=== PATIENT | female | born 1960 | race Two or more races ===

== ENCOUNTER 2024-12-16 13:52 | Inpatient (IN) | payer MEDICAID, SELFPAY ==
[2024-12-16] VITALS (21 sets, daily range): BP systolic 100–131; BP diastolic 57–80; PULSE 77–98; RESP 17–81; TEMP 36.8–37.1; O2SAT 95–100; BMI 24.4
--- NOTE | 2024-12-16 14:25 | XR_ITS ---
Examination: PA lateral chest 2 views TECHNIQUE: Upright PA lateral chest 2 views Date and time: December 16, 2024 1434 hours INDICATIONS: Weakness today. FINDINGS: Normal heart size Retrocardiac gastric hernia. No pneumonia or pulmonary edema. Minimal chronic osteoporotic wedging lower dorsal vertebral bodies IMPRESSION: No active disease.
--- NOTE | 2024-12-16 14:25 | EKG_ITS ---
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
--- NOTE | 2024-12-16 14:27 | PD.EDRME ---
Rapid Medical Screening Exam RME Arrival date/time: 12/16/24 13:52 64-year-old female presents to the emergency department today for complaints of feeling weak and was told that her hemoglobin was low when she was in the clinic today Chief Complaint: Recheck/Abnormal Lab/Rx Vital signs: Vital Signs Temperature 98.7 F 12/16/24 14:17 Pulse Rate 98 12/16/24 14:17 Respiratory Rate 18 12/16/24 14:17 Blood Pressure 100/62 12/16/24 14:17 Pulse Oximetry (%) 97 12/16/24 14:17 Oxygen Delivery Method Room Air 12/16/24 14:17
[2024-12-16 15:22] LABS: Basophils # (Auto) 0.0 Thou/mm3 (0.0-0.2); Basophils % (Auto) 1 % (0-2.5); Eosinophils # (Auto) 0.1 Thou/mm3 (0.0-0.5); Eosinophils % (Auto) 3 % (0-10); Hematocrit 23.7 % (36.0-46.0); Immature Granulocytes Auto 0.01 Thou/mm3 (0.00-0.00); Lymphocytes # (Auto) 1.5 Thou/mm3 (1.0-4.8); Lymphocytes % (Auto) 28 % (10-50); Mean Corpuscular HGB Conc 27.4 g/dl (31.0-37.0); Mean Corpuscular Hemoglobin 20.1 pg (25.0-35.0); Mean Corpuscular Volume 73 fL (80-100); Monocytes # (Auto) 0.4 Thou/mm3 (0.0-0.8); Monocytes % (Auto) 8 % (0-12); Neutrophils # (Auto) 3.2 Thou/mm3 (1.8-7.7); Neutrophils % (Auto) 60 % (37-80); Nucleated Red Blood Cell # 0.00 Thou/mm3 (0.00-0.00); Nucleated Red Blood Cell % 0 /100 WBC (0); Platelet Count 451 Thou/mm3 (140-440); RDW Standard Deviation 46.5 fL (36.4-46.3); Red Blood Count 3.24 Miln/mm3 (4.00-5.20); White Blood Count 5.3 Thou/mm3 (3.6-11.0)
[2024-12-16 15:32] LABS: Hemoglobin 6.5 g/dL (12.0-16.0)
[2024-12-16 15:38] LABS: Alanine Aminotransferase 15 U/L (10-49); Albumin, Serum 4.1 gm/dL (3.4-4.8); Albumin/Globulin Ratio 2.2 (1.2-2.2); Alkaline Phosphatase 63 U/L (46-116); Anion Gap 9 (7-16); Aspartate Amino Transferase 16 U/L (0-34); BUN/Creatinine Ratio 30 Ratio (12-20); Bilirubin,Total 0.3 mg/dL (0.3-1.2); Blood Urea Nitrogen 18 mg/dL (9-23); Calcium 9.6 mg/dL (8.3-10.6); Calcium (Corrected) 9.6 mg/dL (8.5-10.1); Carbon Dioxide 26.8 mMol/L (20.0-31.0); Chloride 109 mMol/L (98-107); Creatinine (Component) 0.6 mg/dL (0.6-1.3); Estimated Creatinine Clearance 81.2 mL/min (>60); Globulin 1.9 gm/dL (2.3-3.5); Glucose 129 mg/dL (74-106); Magnesium 1.9 mg/dL (1.6-2.6); Osmolality,Calculated 292 (275-295); Potassium 3.6 mMol/L (3.4-5.1); Sodium 145 mMol/L (136-145); Total Protein 6.0 gm/dL (5.7-8.2); Troponin I < 0.002 ng/mL (0.0-0.045); eGFR > 60 See Note
[2024-12-16 15:49] LABS: INR 1.0 (0.9-1.3); Partial Thromboplastin Time 31.9 Seconds (22.0-36.0); Prothrombin Time 10.9 Seconds (9.0-12.2)
[2024-12-16 15:52] LABS: Ferritin 4 ng/mL (7.3-270.7); Iron 12 mcg/dL (50-170); Percent Iron Saturation 2 % (20-55); Total Iron Binding Capacity 431 mcg/dL (250-425); Unsaturated Iron Binding 419 (225-295)
[2024-12-16 16:04] LABS: B-Type Natriuretic Peptide 80 pg/mL (0-100)
[2024-12-16 16:17] LABS: Collection Type, Urine Clean Catch
[2024-12-16 16:50] LABS: Bilirubin,Urine Negative (Negative); Blood,Urine Negative (Negative); Clarity,Urine Clear (Clear/Hazy); Color,Urine Yellow (Lt Yel-Yel); Glucose, Urine Trace (Negative); Ketones,Urine Trace (Negative); Leukocyte Esterase,Urine Positive (Negative); Nitrite,Urine Negative (Negative); PH,Urine 6.0 (5.0-7.0); Protein,Urine 1+ (Neg - Trace); RBC,Urine 1 /hpf (0-3); Specific Gravity,Urine 1.034 (1.001-1.035); Squamous Epithelial Cell,Urine < 1 /hpf (0-5); Urobilinogen,Urine 2.0 mg/dL (0.0-1.0); WBC,Urine 6 /hpf (0-5)
--- NOTE | 2024-12-16 18:13 | PD.EDRECHK ---
ED Recheck Abnl Lab Rx-RME/HPI General Chief Complaint: Recheck/Abnormal Lab/Rx Stated Complaint: Hemoglobin 5.9, weak, SOB Time Seen by Provider: 12/16/24 17:54 Arrival date/time: 12/16/24 13:52 Limitations: no limitations RME / HPI RME / HPI narrative: 64-year-old female is here today with 2-week history of progressive dyspnea. She has generalized weakness. She does endorse some mild cramping. She has no chest pain or lower leg edema. She has no orthopnea. She has no fevers or chills. She has no cough or wheezing. She does have a history of asthma and hypertension. 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 She denies any GI bleed. She has no other acute complaints. Related Data Home Medications ?Medication ?Instructions ?Recorded ?Confirmed loratadine 10 mg tablet 10 mg PO QDAY 10/10/18 12/17/24 montelukast 10 mg tablet 10 mg PO QPM 10/10/18 12/17/24 lisinopril 5 mg tablet 5 mg PO QDAY 04/11/21 12/17/24 atorvastatin 20 mg tablet 20 mg PO DAILY 12/17/24 12/17/24 ipratropium bromide 42 mcg (0.06 2 spray intranasal TID 12/17/24 12/17/24 %) nasal spray Allergies Allergy/AdvReac Type Severity Reaction Status Date / Time No Known Allergies Allergy Verified 12/16/24 13:58 Review of Systems Review of Systems Systems Reviewed: All systems reviewed, normal except as documented ED Exam General Limitations: Present no limitations General appearance: Present alert and in no apparent distress Head Head exam: Present atraumatic Eye Eye exam: Present normal appearance, PERRL and EOMI ENT ENT exam: Present normal exam, normal oropharynx and mucous membranes moist Neck Neck exam: Present normal inspection, full ROM and trachea midline Chest Chest inspection: Present normal inspection and symmetric chest wall rise Respiratory Respiratory exam: Present normal lung sounds bilaterally Cardiovascular Cardiovascular exam: Present regular rate, normal rhythm and normal heart sounds Abdominal Exam Abdominal exam: Present soft; Absent tenderness Rectal Exam Rectal exam: Present normal inspection, normal rectal tone and heme (+) stool (CROW Mccrary, present during rectal exam) Extremities Exam Extremities exam: Present normal inspection and full ROM Back Exam Back exam: Present normal inspection and full ROM Neurological Exam Neurological exam: Present alert, oriented X3 and CN II-XII intact Psychiatric Psychiatric exam: Present normal affect and normal mood Skin Skin exam: Present warm, dry, intact and normal color Course Quality Measures none Orders Category Date Time Status Admit to Inpatient Status Routine Admission 12/16/24 23:43 Active Patient Condition Routine Admission 12/16/24 23:[address] Screening NOW Care 12/16/24 18:23 Active EKG (ED ONLY) *Do not use* NOW Care 12/16/24 14:25 Completed Endoscopy Consents .On arrival Care 12/16/24 20:52 Active May take PO meds w/sips of H2O NEEDED Care 12/16/24 23:42 Active Miscellaneous Nursing Order NOW Care 12/16/24 20:52 Active Miscellaneous Nursing Order NOW Care 12/16/24 23:43 Active NPO NOW Care 12/16/24 23:44 Active NPO after Midnight ONCE Care 12/16/24 18:30 Active NPO after Midnight ONCE Care 12/16/24 20:52 Active Notify provider NEEDED Care 12/16/24 23:43 Active Occult Blood,Stool (Nursing) ONCE Care 12/16/24 19:10 Completed Sequential Compression Device QSHIFT Care 12/16/24 23:42 Active Consult to Gastroenterology Stat Cons 12/16/24 18:30 Ordered Diet NPO (NOW) Diet 12/16/24 23:44 Active Diet NPO after Midnight Diet 12/17/24 00:01 Completed Diet NPO after Midnight Diet 12/17/24 00:[address] abdomen pelvis w con Stat Exams 12/16/24 18:23 Completed EKG (ED Only) Stat Exams 12/16/24 14:25 Draft XR chest 2V Stat Exams 12/16/24 14:25 Completed B-Type Natriuretic Peptide Stat Lab 12/16/24 14:58 Completed BNP [B-Type Natriuretic Peptide] Stat Lab 12/16/24 18:30 Completed Basic Metabolic Panel AM DRAW Lab 12/17/24 04:20 Completed Basic Metabolic Panel AM DRAW Lab 12/18/24 05:00 Ordered Basic Metabolic Panel AM DRAW Lab 12/19/24 05:00 Ordered CBC AM DRAW Lab 12/17/24 04:20 Completed CBC AM DRAW Lab 12/18/24 05:00 Ordered CBC AM DRAW Lab 12/19/24 05:00 Ordered CBC Stat Lab 12/16/24 14:58 Completed Comprehensive Metabolic Panel Stat Lab 12/16/24 14:58 Completed Ferritin Stat Lab 12/16/24 14:58 Completed Iron Panel Stat Lab 12/16/24 14:58 Completed Magnesium AM DRAW Lab 12/17/24 04:20 Completed Magnesium AM DRAW Lab 12/18/24 05:00 Ordered Magnesium AM DRAW Lab 12/19/24 05:00 Ordered Magnesium Stat Lab 12/16/24 14:58 Completed Partial Thromboplastin Time AM DRAW Lab 12/17/24 04:20 Completed Partial Thromboplastin Time Stat Lab 12/16/24 14:58 Completed Phosphorous AM DRAW Lab 12/17/24 04:20 Completed Phosphorous AM DRAW Lab 12/18/24 05:00 Ordered Phosphorous AM DRAW Lab 12/19/24 05:00 Ordered Prothrombin Time with INR AM DRAW Lab 12/17/24 04:20 Completed Prothrombin Time with INR Stat Lab 12/16/24 14:58 Completed Troponin I Stat Lab 12/16/24 14:58 Completed Type and Screen Stat Lab 12/16/24 14:58 Completed Urinalysis Stat Lab 12/16/24 16:05 Completed prbc [Red Blood Cells] Stat Lab 12/16/24 14:58 Completed Acetaminophen Supp [Tylenol Supp] Med 12/16/24 23:42 Active 650 mg [place] Q6HR PRN Albuterol/Ipratr Rt Sirisha [Duoneb Rt Sirisha] Med 12/16/24 23:42 Active 3 ml INH Q2HR PRN Famotidine Inj [Pepcid Inj] Med 12/16/24 23:00 Discontinued 20 mg IVP X1 ONE HYDROcodone*/APAP 5/325 [[place] 5/325] Med 12/16/24 23:42 Active 1 tab PO Q4HR PRN Ondansetron Inj [Zofran Inj] Med 12/16/24 23:42 Active 4 mg IVP Q6H PRN Ondansetron Inj [Zofran Inj] Med 12/16/24 23:00 Discontinued 4 mg IVP X1 ONE Pantoprazole Inj [Protonix Inj] Med 12/17/24 09:00 Active 40 mg IVP QDAY Pantoprazole Inj [Protonix Inj] Med 12/16/24 23:00 Discontinued 80 mg IVP X1 ONE Code Status Routine Oth 12/16/24 23:42 Ordered Vital Signs Vital signs: Vital Signs Temperature 98.7 F 12/16/24 14:17 Pulse Rate 98 12/16/24 14:17 Respiratory Rate 18 12/16/24 14:17 Blood Pressure 100/62 12/16/24 14:17 Pulse Oximetry (%) 97 12/16/24 14:17 Oxygen Delivery Method Room Air 12/16/24 14:17 Recheck / Abnormal Lab / Rx MDM Narrative MDM Narrative:: 64-year-old female is here today with 2-week history of progressive dyspnea. She has generalized weakness. She does endorse some mild cramping. She has no chest pain or lower leg edema. She has no orthopnea. She has no fevers or chills. She has no cough or wheezing. She does have a history of asthma and hypertension. 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 She denies any GI bleed. She has no other acute complaints. On exam, patient is nontoxic-appearing. Abdomen is soft and supple. Vital signs are stable. Bedside Hemoccult was positive. Her hemoglobin is 6.5 and her hematocrit is 23 point see abdomen. She has no leukocytosis. PT/INR unremarkable. Metabolic panel is unremarked with exception of a glucose that is mildly elevated at 129. Iron studies are consistent with iron of deficient anemia. Urinalysis is unremarkable. Will give the patient [address] is added to the workup. Dr. Meyer with gastroenterology was contacted at approximately 1820 p.m. and agrees the patient should be admitted. He will see the patient tomorrow and consider colonoscopy. At the time of shift change, patient CT abdomen pelvis is pending. The plan will be to admit to medicine if CT of the abdomen is unremarkable. Case discussed with Dr. Barakat, table games shift manager ER physician who assumed care. Patient data External records reviewed:: None Clinical information provided by:: patient Social determinants that could affect healthcare access:: none Patient has the following chronic illnesses:: HTN How is presenting disease/condition affected by chronic disease/condition?: uneffected by Evaluation data The following diagnostics were reviewed and interpreted by me:: lab results (Patient has no leukocytosis, hemoglobin 6.5, hematocrit is 23.7. There is no significant metabolic derangement. Urinalysis unremarkable.) and radiology exam(s) (CT of abdomen pelvis is pending at the time of shift change.) Lab and/or radiology exams considered but not ordered:: n/a Interpretation Summary: Significant anemia Medications / Prescriptions Medications or Prescriptions considered but not ordered:: n/a Medication administrations:: Medication Administration History Acetaminophen (Acetaminophen Supp 650 Mg Supp) 650 mg [place] Q6HR PRN PRN Reason: Fever > 100.4 or pain 1-3 Stop: 01/15/25 23:41 Hydrocodone Bitart/Acetaminophen (Hydrocodone/Apap 5/325 Tablet) 1 tab PO Q4HR PRN PRN Reason: PAIN SCALE 4-10(Mod-Sev Stop: 12/21/24 23:41 Albuterol/Ipratropium (Albuterol/Ipratropium (Duoneb) Rt Sirisha 3 Ml Nebu) 3 ml INH Q2HR PRN PRN Reason: SHORTNESS OF BREATH OR WHEEZE Stop: 01/15/25 23:41 Atorvastatin Calcium (Atorvastatin Calcium 20 Mg Tablet) 20 mg PO HS DAYNE Stop: 01/17/25 20:59 Sodium Chloride (Ns) 500 mls @ 80 mls/hr IV .Q6H15M ONE Stop: 12/17/24 14:23 Last Admin: 12/17/24 08:54 Dose: 80 mls/hr Documented By: Montelukast Sodium (Montelukast Sodium 10 Mg Tablet) 10 mg PO QPM DAYNE Stop: 01/16/25 20:59 Ondansetron HCl (Ondansetron Inj 2 Mg/Ml Inj 2 Ml) 4 mg IVP Q6H PRN; Protocol PRN Reason: NAUSEA OR VOMITING Stop: 01/15/25 23:41 Pantoprazole Sodium (Pantoprazole Inj 40 Mg Vial) 40 mg IVP QDAY DAYNE Stop: 01/16/25 08:59 Last Admin: 12/17/24 08:38 Dose: 40 mg Documented By: Discontinued Medications Famotidine (Famotidine Inj 10 Mg/Ml Vial 2 Ml) 20 mg IVP X1 ONE Stop: 12/16/24 23:01 Last Admin: 12/16/24 23:15 Dose: 20 mg Documented By: IRWIN Ondansetron HCl (Ondansetron Inj 2 Mg/Ml Inj 2 Ml) 4 mg IVP X1 ONE; Protocol Stop: 12/16/24 23:01 Last Admin: 12/16/24 23:16 Dose: 4 mg Documented By: IRWIN Pantoprazole Sodium (Pantoprazole Inj 40 Mg Vial) 80 mg IVP X1 ONE Stop: 12/16/24 23:01 Last Admin: 12/16/24 23:16 Dose: 80 mg Documented By: IRWIN PRBCs Consultations Consultation(s) initiated? (list below): Yes Diagnosis Recheck Differential Diagnosis: other (Anemia) Most likely diagnosis given after review of the tests above:: Anemia, GI bleed Admission Indicated Admission indicated?: indicated Admission Request Was there a request for admission?: Yes Admission Attestation Admission request attestation: Discussed case with [] from Hospitalist service regarding admission. Discussed patients ED course, exam findings, labs, and radiology results. The Hospitalist [agrees,declines] to accept the patient for admission. Disposition Plan Disposition Plan: Admit Critical Care Time Critical Care Time Critical Care Time: Yes Total Critical Care Time (min.): 45 Attestation: The high probability of sudden, clinically significant deterioration in the patient's condition required the highest level of my preparedness to intervene urgently. The services I provided to this patient were to treat and/or prevent clinically significant deterioration. Services included the following: chart data review, reviewing nursing notes and/or old charts, documentation time, portfolio consultant collaboration regarding findings and treatment options, medication orders and management, direct patient care, vital sign assessments and ordering, interpreting and reviewing diagnostic studies and lab tests. Aggregate critical care time includes only time during which I was engaged in work directly related to the patient's care, as described above, whether at bedside or elsewhere in the Emergency Department. It did not include time spent performing other reported procedures or the services of residents, students, nurses or physician assistants. Discharge Plan Plan Patient Disposition: Admit Acute Care w/in Hospital Patient condition on transfer: Stable Problem List Clinical Impression: GI (gastrointestinal bleed), Anemia
--- NOTE | 2024-12-16 18:23 | XR_ITS ---
Examination: CT abdomen with intravenous contrast CT pelvis with intravenous contrast 2-D coronal reconstructions 2-D sagittal reconstructions Date and time of exam:December 16, 2024 1027 hours Comparison July 04, 2023 INDICATIONS: Anemia with gastrointestinal bleeding beginning 3 weeks ago. CTDI: vol (mGy) 16 DLP: (mGycm) 306 Technique: Multiple axial sections of the abdomen and pelvis have been obtained. 64 slice high-resolution scanner used. 3 mm axial sections have been obtained, post intravenous injection cc [id number] 2-D sagittal, coronal reconstructions obtained. Low dose protocols were performed. One or more of the following dose reduction techniques were used; automated exposure control, adjustment of the mA and/or KV according to patient size, use of iterative reconstruction technique. Findings: Small liver cyst Spleen not enlarged No gallstones No pancreatic or adrenal mass No hydronephrosis Aorta normal size Normal appendix Colonic diverticulosis Anteverted uterus with multiple uterine fundal masses Urinary bladder are intact Prominent thickening of the rectal wall Prominent osteopenia IMPRESSION: Colonic diverticulosis, no diverticulitis. Prominent thickening of the rectal wall, differential would include proctitis, rectal tumor Recommend direct inspection Recommend pelvic sonography to assess multiple uterine masses
[2024-12-16 18:58] LABS: B-Type Natriuretic Peptide 72 pg/mL (0-100)
--- NOTE | 2024-12-16 20:48 | PD.IMCONS ---
HPI Data of Consult Primary Care Provider: Jarrod Mixon PA-C Consult Narrative Reason for consult: Occult GI bleeding posthemorrhagic anemia hemoglobin 6.5 hematocrit 23.7 History of present illness: 64-year-old female evaluated the request of the ER physician pastry assistant with symptoms of dizziness weakness dyspnea on exertion Patient does have underlying hypertension and bronchial asthma Her hemoglobin hematocrit was 6.5 and 23.7 platelet count 4 and 51,000 The previous documented hemoglobin hematocrit is 11.6 and 36.9 cc:: cc: Review of Systems Review of Systems Systems Reviewed: All systems reviewed, normal except as documented Past Medical History Surgical History OTHER SURGICAL HX: As in the history of present illness Meds Home Medications and Allergies Home Medications ?Medication ?Instructions ?Recorded ?Confirmed ?Type loratadine 10 mg tablet 10 mg PO QDAY 10/10/18 04/11/21 History montelukast 10 mg tablet 10 mg PO QPM 10/10/18 04/11/21 History lisinopril 5 mg tablet 5 mg PO QDAY 04/11/21 04/11/21 History Allergies Allergy/AdvReac Type Severity Reaction Status Date / Time No Known Allergies Allergy Verified 12/16/24 13:58 Exam Vital Signs Temp Pulse Resp BP Pulse Ox O2 Del Method 98.2 F 85 18 121/72 100 Room Air 12/16/24 20:25 12/16/24 20:25 12/16/24 20:25 12/16/24 20:21 12/16/24 20:25 12/16/24 20:21 Constitutional Comments: Chronically ill-appearing Routine Respiratory Exam Comments: Normal to auscultation Routine Abdominal Exam Comments: Soft nontender Results Labs 12/16/24 14:58 12/16/24 14:58 Labs: Short CBC 12/16/24 Range/Units 14:58 WBC 5.3 (3.6-11.0) Thou/mm3 Hgb 6.5 L* (12.0-16.0) g/dL Hct 23.7 L (36.0-46.0) % Plt Count 451 H (140-440) Thou/mm3 BMP 12/16/24 14:58 Sodium 145 Potassium 3.6 Chloride 109 H Carbon Dioxide 26.8 BUN 18 Creatinine 0.6 Glucose 129 H Calcium 9.6 Cardiac Enzymes 12/16/24 Range/Units 14:58 Troponin I < 0.002 (0.0-0.045) ng/mL Liver Function 12/16/24 Range/Units 14:58 Total Bilirubin 0.3 (0.3-1.2) mg/dL AST 16 (0-34) U/L ALT 15 (10-49) U/L Alkaline Phosphatase 63 (46-116) U/L Albumin 4.1 (3.4-4.8) gm/dL Urine 12/16/24 Range/Units 16:05 Urine Color Yellow (Lt Yel-Yel) Urine Clarity Clear (Clear/Hazy) Urine pH 6.0 (5.0-7.0) Ur Specific [place] 1.034 (1.001-1.035) Urine Protein 1+ A (Neg - Trace) Urine Glucose (UA) Trace (Negative) Assessment and Plan Additional Assessment & Plan Additional Plan: # Occult GI bleeding grossly Hemoccult positive stool # Acute posthemorrhagic anemia plan I agree with the blood transfusion consent obtained for fiberoptic esophagogastroduodenoscopy with possible biopsy possible therapeutic intervention under intravenous moderate sedation n.p.o. at midnight tonight patient can have clear liquid diet till midnight tonight IV Protonix will follow the patient If the EGD is absolutely normal we will consider doing a fiberoptic colonoscopy prior to discharge Agree with the blood transfusion Thank you very much for the opportunity to participate in the care of this patient Other medical problems include Essential hypertension Bronchial asthma
--- NOTE | 2024-12-16 20:55 | PC.NURSE ---
first unit of blood in porogress. pt resting quietly . continue to monitor.
--- NOTE | 2024-12-16 23:01 | PD.EDADDENDU ---
Emergency Room Addendum <Raquel Mo - Last Filed: 12/16/24 23:24> Addendum Narrative: I took over the care from previous shift physician, Lisa Dougherty PA-C, at 11 PM on 12/16/24. See previous notes for complete H & P and ED course. I reviewed all diagnostic test results. Diagnoses include: I discussed the case with our hospitalist. About the presentation and exam and diagnostics and treatments here. And need of further care in the hospital. Will accept the patient. Lit Barakat MD <Lit Barakat MD - Last Filed: 12/17/24 00:23> Addendum Narrative: I took over the care from Lisa Dougherty PA-C at 11 PM on 12/16/24. See previous notes for complete H & P and ED course. I reviewed all diagnostic test results. Diagnoses include: GI bleed with severe anemia I discussed the case with our welding production supervisor and our hospitalist. About the presentation and exam and diagnostics and treatments here. And need of further care in the hospital. Will accept the patient. Lit Barakat MD
[2024-12-16] MEDS: FAMOTIDINE INJ 10 MG/ML VIAL 2 ML 20 MG IVP (23:15)
[2024-12-16] MEDS: ONDANSETRON INJ 2 MG/ML INJ 2 ML 4 MG IVP (23:16)
--- NOTE | 2024-12-16 23:45 | PD.RESHP ---
Documentation for date of: 12/16/24 HPI History of Present Illness Chief complaint: Weakness, dyspnea on exertion History of present illness: 64 y/o F with PMHx significant for asthma, hypertension, arthritis, diverticulitis presents with chief complaint of weakness and dyspnea on exertion x 2 weeks. Patient states symptoms have been going progressively worse, significantly reducing her daily activities. Patient denies ever having felt similar symptoms in the past. Patient also reports 1 episode of melena approximately 10 days ago. Patient denies fevers, chills, chest pain, shortness of breath, nausea, vomiting, decreased appetite, abdominal pain, dysuria, hematemesis. ED COURSE: Labs significant for: Hemoglobin 6.5, BUN 18, creatinine 0.6, EGFR 60. Stool guaiac positive. Imaging significant for: Chest x-ray negative. EKG unremarkable. CT A/P showed diverticulosis without inflammation, proctitis. Patient received Protonix and Zofran in the ED, along with 2 units PRBCs. PMH: Asthma, HTN, arthritis, diverticulitis PSH: None SH: Denies alcohol, tobacco, illicit drug use. Allergies:?NKDA Medications: Aspirin, atorvastatin, lisinopril, montelukast, omeprazole Review of Systems Review of Systems Systems Reviewed: All systems reviewed, normal except as documented Past Medical History Past Medical History Comments PMH COMMENT: PMH: Asthma, HTN, arthritis, diverticulitis PSH: None SH: Denies alcohol, tobacco, illicit drug use. Allergies:?NKDA Medications: Aspirin, atorvastatin, lisinopril, montelukast, omeprazole Exam Vital Signs Temp Pulse Resp BP Pulse Ox O2 Del Method 98.4 F 77 18 110/57 L 98 Room Air 12/16/24 23:21 12/16/24 23:21 12/16/24 23:21 12/16/24 23:21 12/16/24 23:21 12/16/24 22:15 Narrative Exam PE: Gen: Well-developed and well-nourished. HEENT: NCAT, PERRLA, EOMI, MMM, anicteric conjunctivae. CVS: normal S1 and S2. RRR. No M/R/G. Resp: CTA B/L. No rhonchi, rales, crackles or wheezing. Abd: soft, non-tender, non-distended. MSK: Good ROM in BUE & BLE. No edema or rash. Neuro: CN II-XII grossly intact. Strength 5/5 in BUE & BLE. Alert and oriented x3. Psych: appropriate mood and affect. Results: Labs 12/16/24 14:58 12/16/24 14:58 Labs: Short CBC 12/16/24 Range/Units 14:58 WBC 5.3 (3.6-11.0) Thou/mm3 Hgb 6.5 L* (12.0-16.0) g/dL Hct 23.7 L (36.0-46.0) % Plt Count 451 H (140-440) Thou/mm3 BMP 12/16/24 14:58 Sodium 145 Potassium 3.6 Chloride 109 H Carbon Dioxide 26.8 BUN 18 Creatinine 0.6 Glucose 129 H Calcium 9.6 Cardiac Enzymes 12/16/24 Range/Units 14:58 Troponin I < 0.002 (0.0-0.045) ng/mL Liver Function 12/16/24 Range/Units 14:58 Total Bilirubin 0.3 (0.3-1.2) mg/dL AST 16 (0-34) U/L ALT 15 (10-49) U/L Alkaline Phosphatase 63 (46-116) U/L Albumin 4.1 (3.4-4.8) gm/dL Urine 12/16/24 Range/Units 16:05 Urine Color Yellow (Lt Yel-Yel) Urine Clarity Clear (Clear/Hazy) Urine pH 6.0 (5.0-7.0) Ur Specific [place] 1.034 (1.001-1.035) Urine Protein 1+ A (Neg - Trace) Urine Glucose (UA) Trace (Negative) Quality Measures Quality Measures VTE prophylaxis Medications Home Medications and Allergies Home Medications ?Medication ?Instructions ?Recorded ?Confirmed ?Type loratadine 10 mg tablet 10 mg PO QDAY 10/10/18 04/11/21 History montelukast 10 mg tablet 10 mg PO QPM 10/10/18 04/11/21 History lisinopril 5 mg tablet 5 mg PO QDAY 04/11/21 04/11/21 History Allergies Allergy/AdvReac Type Severity Reaction Status Date / Time No Known Allergies Allergy Verified 12/16/24 13:58 Visit Medications Discontinued Medications Famotidine (Famotidine Inj 10 Mg/Ml Vial 2 Ml) 20 mg IVP X1 ONE Stop: 12/16/24 23:01 Last Admin: 12/16/24 23:15 Dose: 20 mg Ondansetron HCl (Ondansetron Inj 2 Mg/Ml Inj 2 Ml) 4 mg IVP X1 ONE; Protocol Stop: 12/16/24 23:01 Last Admin: 12/16/24 23:16 Dose: 4 mg Pantoprazole Sodium (Pantoprazole Inj 40 Mg Vial) 80 mg IVP X1 ONE Stop: 12/16/24 23:01 Last Admin: 12/16/24 23:16 Dose: 80 mg Assessment & Plan Plan 64 y/o F with PMHx significant for asthma, hypertension, arthritis, diverticulitis presents with chief complaint of weakness and dyspnea on exertion x 2 weeks, admitted for GI bleed with acute symptomatic anemia. #GI bleed #Acute symptomatic anemia Patient presented with chief complaints of dyspnea on exertion and weakness, progressive over the past 2 weeks. Patient also notes 1 episode of melena approximately 10 days ago. At presentation hemoglobin 6.5, 2 units transfused in the ED. Stool occult blood test positive. CT A/P showed diverticulosis without inflammation. Patient denies any hematemesis. Not on any anticoagulants. - GI consulted, appreciate recommendations - N.p.o. pending EGD - IV Protonix - Follow-up posttransfusion H&H - Monitor hemoglobin, transfuse as needed - Protonix IV 40 mg daily #HTN #Arthritis #Asthma Patient history as stated. Med rec's pending. - DuoNebs as needed - Consider resume patient home med when appropriate DVT prophylaxis: SCDs GI prophylaxis: Protonix Diet: N.p.o. pending EGD Lines: Peripheral IV Code status: Full code Plan of care discussed with attending Dr. Mcmanus. Maynor Fernandez MD PGY?2 Attending Provider Attestation/Addendum I have examined the patient, reviewed labs and imaging findings, discussed the case with the resident(s), and reviewed entered orders. I agree with the plan of care as outlined in this note, with these additional summaries/recommendations: After examination of the patient and review of the clinical data, I feel that this patient needs admission to the hospital for further treatment and evaluation. Patient is a 64-year-old female with a medical history of asthma, primary hypertension, and diverticulosis presents to [facility] emergency department on 12/16/2024 with nonspecific complaints of shortness of breath, generalized weakness, and cramping. Patient seen at bedside. Patient diagnosed with GI bleed. Unclear if upper or lower at this time. Fecal occult blood test positive in the emergency room. Currently hemodynamically stable. Differential is broad at this time and includes PUD, gastritis, AVM, malignancy, diverticulosis, and hemorrhoids. GI consulted with plans for endoscopic evaluation. N.p.o., 2 large-bore IVs, IVF resuscitation to maintain MAP greater than or equal to 65, trend H&H, type and screen, pantoprazole 80 mg IV x 1 then 40 mg IV twice daily. No history of cirrhosis and thus octreotide and Rocephin not required at this time. Hold NSAIDs, steroids, aspirin, and all anticoagulation. Transfuse for hemoglobin less than 7, platelets less than 50, or INR greater than 1.5. Patient's hemoglobin was found to be 6.5 in the emergency room and 1 unit PRBCs ordered. Iron studies also obtained prior to transfusion which revealed severe iron deficiency anemia with iron 12 and ferritin 4. Severe iron deficiency anemia is suspicious for colon cancer. CT of abdomen and pelvis on admission did reveal rectal wall thickening which possibly represents proctitis versus tumor and multiple uterine masses. Patient did have transvaginal ultrasound on 06/12/2023 which showed that multiple uterine masses are consistent with fibroid degeneration. Thrombocytosis present which is most likely reactive secondary to severe TOYIN. Continue home inhalers as needed for history of asthma. Resume home antihypertensives as needed. Patient updated on the plan and in agreement. All questions answered to satisfaction. Please see residents note for additional details and management. Dr. Yonathan MD
[2024-12-17] VITALS (18 sets, daily range): BP systolic 97–134; BP diastolic 59–86; PULSE 64–83; RESP 18–20; TEMP 36.3–36.8; O2SAT 95–100
--- NOTE | 2024-12-17 04:17 | PC.NURSE ---
report called to RN.
[2024-12-17 04:58] LABS: Basophils # (Auto) 0.0 Thou/mm3 (0.0-0.2); Basophils % (Auto) 1 % (0-2.5); Eosinophils # (Auto) 0.2 Thou/mm3 (0.0-0.5); Eosinophils % (Auto) 4 % (0-10); Hematocrit 31.0 % (36.0-46.0); Hemoglobin 9.1 g/dL (12.0-16.0); Immature Granulocytes Auto 0.01 Thou/mm3 (0.00-0.00); Lymphocytes # (Auto) 1.6 Thou/mm3 (1.0-4.8); Lymphocytes % (Auto) 32 % (10-50); Mean Corpuscular HGB Conc 29.4 g/dl (31.0-37.0); Mean Corpuscular Hemoglobin 22.8 pg (25.0-35.0); Mean Corpuscular Volume 78 fL (80-100); Monocytes # (Auto) 0.4 Thou/mm3 (0.0-0.8); Monocytes % (Auto) 8 % (0-12); Neutrophils # (Auto) 2.7 Thou/mm3 (1.8-7.7); Neutrophils % (Auto) 55 % (37-80); Nucleated Red Blood Cell # 0.00 Thou/mm3 (0.00-0.00); Nucleated Red Blood Cell % 0 /100 WBC (0); Platelet Count 385 Thou/mm3 (140-440); RDW Standard Deviation 51.8 fL (36.4-46.3); Red Blood Count 4.00 Miln/mm3 (4.00-5.20); White Blood Count 5.0 Thou/mm3 (3.6-11.0)
[2024-12-17 05:15] LABS: INR 1.0 (0.9-1.3); Partial Thromboplastin Time 32.2 Seconds (22.0-36.0); Prothrombin Time 10.9 Seconds (9.0-12.2)
[2024-12-17 05:19] LABS: Anion Gap 8 (7-16); BUN/Creatinine Ratio 23 Ratio (12-20); Blood Urea Nitrogen 14 mg/dL (9-23); Calcium 9.1 mg/dL (8.3-10.6); Carbon Dioxide 26.1 mMol/L (20.0-31.0); Chloride 110 mMol/L (98-107); Creatinine (Component) 0.6 mg/dL (0.6-1.3); Estimated Creatinine Clearance 81.2 mL/min (>60); Glucose 82 mg/dL (74-106); Magnesium 2.1 mg/dL (1.6-2.6); Osmolality,Calculated 286 (275-295); Phosphorous 3.8 mg/dL (2.4-5.1); Potassium 4.2 mMol/L (3.4-5.1); Sodium 144 mMol/L (136-145); eGFR > 60 See Note
--- NOTE | 2024-12-17 08:16 | ESPR_ITS ---
<Statement entered by Sumaya Varela MD - 12/17/24 17:50> Ms. Blue is a 64-year-old female with past medical history significant for asthma, hypertension, hyperlipidemia, arthritis, diverticulitis who presented to the ED with GI bleed and acute blood loss anemia and admitted for further workup. Patient is pending EGD tomorrow morning. Will continue with IV fluids and IV Protonix. Can consider IV iron if patient's symptoms continue to worsen. Patient is currently on room air O2. Will continue to monitor patient's daily CBC, and transfuse if hemoglobin drops to below 7. Patient seen and examined at bedside. No acute overnight events reported. I discussed with and supervised the paralegal internship physician who took care of this patient. I personally saw and examined the patient and discussed the assessment and plan with the entire medicine team, including my attending Dr. Castañeda, I agree with most of the assessment and plan as documented below Sumaya Varela M.D. PGY-3 Disclaimer: Despite multiple revisions, due to the dictation software being used, the document bellow may not be free of grammatical errors including phonetic/typographic errors. However, this does not deter from our commitment to providing health care in the patient's best interest in mind. Documentation for date of: 12/17/24 Subjective Subjective Interval history: 12/17/24: KENDELLON. BP was noted to be 98/59. IVF was given. Patient states that she has been feeling short of breath even at rest for the past 2-3 weeks and thought it was due to her asthma. She states that her shortness of breath did not improve even with her current asthma medication regimen. Patient denies any shortness of breath at this time. Patient denies any unintended weight loss, nausea, vomiting, dysuria, hematochezia or hematuria. She reports 1 episode of melena about a week ago. Exam Vital Signs Temp Pulse Resp BP Pulse Ox O2 Del Method 97.3 F 69 18 98/59 L 96 Room Air 12/17/24 07:54 12/17/24 07:54 12/17/24 07:54 12/17/24 07:54 12/17/24 07:54 12/17/24 07:54 Narrative Exam Gen: Well-developed and well-nourished. Pale appearing. HEENT: NCAT, PERRLA, EOMI, MMM, anicteric conjunctivae. CVS: normal S1 and S2. RRR. No M/R/G. Resp: CTA B/L. No rhonchi, rales, crackles or wheezing. Abd: soft, non-tender, non-distended. MSK: Good ROM in BUE & BLE. No edema or rash. Neuro: CN II-XII grossly intact. Strength 5/5 in BUE & BLE. Alert and oriented x3. Psych: appropriate mood and affect. Objective Labs 12/18/24 04:41 12/18/24 04:41 Labs: Laboratory Results - last 24 hr 12/16/24 12/16/24 12/16/24 14:58 16:05 18:30 WBC 5.3 RBC 3.24 L Hgb 6.5 L* Hct 23.7 L MCV 73 L MCH 20.1 L MCHC 27.4 L RDW Std Deviation 46.5 H Plt Count 451 H Neut % (Auto) 60 Lymph % (Auto) 28 [place] % (Auto) 8 Eos % (Auto) 3 Baso % (Auto) 1 Neut # (Auto) 3.2 Lymph # (Auto) 1.5 [place] # (Auto) 0.4 Eos # (Auto) 0.1 Baso # (Auto) 0.0 Immature Gran # (Auto) 0.01 H Absolute Nucleated RBC 0.00 Immature Gran % 0 Nucleated RBC % 0 PT 10.9 INR 1.0 APTT 31.9 Sodium 145 Potassium 3.6 Chloride 109 H Carbon Dioxide 26.8 Anion Gap 9 BUN 18 Creatinine 0.6 Estim Creat Clear Calc 81.2 eGFR > 60 BUN/Creatinine Ratio 30 H Glucose 129 H Calculated Osmolality 292 Calcium 9.6 Corrected Calcium 9.6 Phosphorus Magnesium 1.9 Iron 12 L TIBC 431 H Iron Saturation 2 L Unsat Iron Binding 419 H Ferritin 4 L Total Bilirubin 0.3 AST 16 ALT 15 Alkaline Phosphatase 63 Troponin I < 0.002 B-Natriuretic Peptide 80 72 Total Protein 6.0 Albumin 4.1 Globulin 1.9 L Albumin/Globulin Ratio 2.2 Ur Collection Type Clean Catch Urine Color Yellow Urine Clarity Clear Urine pH 6.0 Ur Specific [place] 1.034 Urine Protein 1+ A Urine Glucose (UA) Trace Urine Ketones Trace Urine Blood Negative Urine Nitrite Negative Urine Bilirubin Negative Urine Urobilinogen (Auto) 2.0 Ur Leukocyte Esterase Positive Urine RBC 1 Urine WBC 6 H Ur Squamous Epith Cells < 1 Urine Bacteria None Blood Type O Positive Antibody Screen NEGATIVE Crossmatch See Detail Blood Bank Wristband ID Yes 12/17/24 04:20 WBC 5.0 RBC 4.00 Hgb 9.1 L D Hct 31.0 L MCV 78 L MCH 22.8 L MCHC 29.4 L RDW Std Deviation 51.8 H Plt Count 385 D Neut % (Auto) 55 Lymph % (Auto) 32 [place] % (Auto) 8 Eos % (Auto) 4 Baso % (Auto) 1 Neut # (Auto) 2.7 Lymph # (Auto) 1.6 [place] # (Auto) 0.4 Eos # (Auto) 0.2 Baso # (Auto) 0.0 Immature Gran # (Auto) 0.01 H Absolute Nucleated RBC 0.00 Immature Gran % 0 Nucleated RBC % 0 PT 10.9 INR 1.0 APTT 32.2 Sodium 144 Potassium 4.2 D Chloride 110 H Carbon Dioxide 26.1 Anion Gap 8 BUN 14 Creatinine 0.6 Estim Creat Clear Calc 81.2 eGFR > 60 BUN/Creatinine Ratio 23 H Glucose 82 Calculated Osmolality 286 Calcium 9.1 Corrected Calcium Phosphorus 3.8 Magnesium 2.1 Iron TIBC Iron Saturation Unsat Iron Binding Ferritin Total Bilirubin AST ALT Alkaline Phosphatase Troponin I B-Natriuretic Peptide Total Protein Albumin Globulin Albumin/Globulin Ratio Ur Collection Type Urine Color Urine Clarity Urine pH Ur Specific [place] Urine Protein Urine Glucose (UA) Urine Ketones Urine Blood Urine Nitrite Urine Bilirubin Urine Urobilinogen (Auto) Ur Leukocyte Esterase Urine RBC Urine WBC Ur Squamous Epith Cells Urine Bacteria Blood Type Antibody Screen Crossmatch Blood Bank Wristband ID Quality Measures Quality Measures VTE prophylaxis Assessment & Plan Assessment Current Active Medications: Generic Name Dose Route Start Last Admin Trade Name Freq PRN Reason Stop Dose Admin Acetaminophen 650 mg 12/16/24 23:42 Acetaminophen Supp 650 Mg Supp NE 01/15/25 23:41 Q6HR PRN Fever > 100.4 or pain 1-3 Hydrocodone Bitart/Acetaminophen 1 tab 12/16/24 23:42 Hydrocodone/Apap 5/325 Tablet PO 12/21/24 23:41 Q4HR PRN PAIN SCALE 4-10(Mod-Sev Albuterol/Ipratropium 3 ml 12/16/24 23:42 Albuterol/Ipratropium (Duoneb) Rt Sirisha 3 Ml Nebu INH 01/15/25 23:41 Q2HR PRN SHORTNESS OF BREATH OR WHEEZE Sodium Chloride 500 mls @ 80 mls/hr 12/17/24 08:09 Ns IV 12/17/24 14:23 .[id number] ONE Ondansetron HCl 4 mg 12/16/24 23:42 Ondansetron Inj 2 Mg/Ml Inj 2 Ml IVP 01/15/25 23:41 Q6H PRN NAUSEA OR VOMITING Protocol Pantoprazole Sodium 40 mg 12/17/24 09:00 Pantoprazole Inj 40 Mg Vial IVP 01/16/25 08:59 QDAY DAYNE Plan 64 y/o F with PMHx significant for asthma, hypertension, HLD, arthritis, diverticulitis presents with chief complaint of weakness and dyspnea x 2 weeks, admitted for GI bleed with acute symptomatic anemia. #GI bleed #Acute symptomatic anemia #Severe Iron deficiency anemia #Diverticulosis Patient presented with chief complaints of dyspnea on exertion and weakness, progressive over the past 2 weeks. Patient also notes 1 episode of melena approximately 10 days ago. At presentation hemoglobin 6.5, 2 units of PRBC transfused in the ED. Stool occult blood test positive. CT A/P showed diverticulosis without inflammation, rectal wall thickening concerning for malignancy vs proctitis, and multiple uterine fibroids. Patient denies any hematemesis, hematochezia, vaginal bleeding, hemturia, unintended weight loss, N/V/D. Not on any anticoagulants. Hgb: 6.5-->9.1, otherwise unremarkable CBC and CMP Iron: 12, TIBC: 431, Iron sat: 2, Ferritin: 4 Unremarkable CXR DDX: upper (PUD, gastritis) vs lower GI bleeding (AVM, malignancy, diverticulosis, and hemorrhoids) Plan: - NPO pending EGD today with Dr. Meyer - Will consider colonoscopy if EGD unremarkable - Follow-up post-transfusion H&H - Monitor hemoglobin, transfuse as needed - IVF maintanence at 80 - Protonix IV 40 mg daily - Will consider IV Iron #HTN #Arthritis #Asthma #HLD Chronic. Patient history as stated. - DuoNebs as needed - Continue home medications montelucast, and atorvastatin - Held home BP med due to low BP DVT prophylaxis: SCDs GI prophylaxis: Protonix Diet: N.p.o. pending EGD Lines: Peripheral IV Code status: Full code Plan of care discussed with attending Dr. Castañeda and chief resident Dr. Nichole Michelle, DO PGY?1 Attending Provider Attestation/Addendum Shante Bunn, , attest that I was physically present for the cazares portions of the service and evaluated the patient with the resident and I reviewed and discussed the case with the resident and agree with the resident's findings and plans of care as documented above Patient seen and evaluated this AM. Patient states she is hungry and has not eaten since yesterday. She otherwise denies pain. She reports some improvement after receiving 2u of pRBCs. Patient is pending EGD. Will f/u with GI. Continue to monitor H/H. patient reports only 1 episode of melena, but several weeks of dyspnea on exertion.
[2024-12-17] MEDS: SODIUM CHLORIDE 0.9% 500 ML 500 ML 80 ML IV (08:54)
--- NOTE | 2024-12-17 09:02 | PC.SS ---
Patient Casi Blue is a 64 Year old male admitted for Anemia, GI Bleed. SS met with patient at bedside to discuss discharge plan and verify demographic information. Patient reports she lives at home with her , Sarthak Blue who she reports is her surrogate decision maker, [phone]. Prior to admission patient did not utilize any source of DME to assist with ambulation. Patient is able to complete all ADL's independently.Choice of pharmacy is [facility]. Patient reports she does utilize a Nebulizer as needed. PCP is Jarrod Mixon. At time of discharge patient will return back home. SS will need to provide transportation. Discharge plan: Home Next of kin, , Sarthak Blue PCP: Jarrod Mixon
--- NOTE | 2024-12-17 14:04 | PC.SS ---
SS follow up note; Patient is pending GI workup. Patient will discharge back home when medically cleared.
[2024-12-17 15:33] LABS: Hematocrit 32.9 % (36.0-46.0); Hemoglobin 9.8 g/dL (12.0-16.0)
--- NOTE | 2024-12-17 15:37 | ESPR_ITS ---
Documentation for date of: 12/17/24 Subjective Subjective Interval history: Hemoglobin hematocrit 9.1 and 31.0 Endoscopy for [place] in the morning Exam Vital Signs Temp Pulse Resp BP Pulse Ox O2 Del Method 97.4 F 66 18 103/70 97 Room Air 12/17/24 11:53 12/17/24 11:53 12/17/24 11:53 12/17/24 11:53 12/17/24 11:53 12/17/24 11:53 Objective Labs 12/17/24 04:20 12/17/24 04:20 Labs: Laboratory Results - last 24 hr 12/16/24 12/16/24 12/16/24 14:58 16:05 18:30 WBC RBC Hgb Hct MCV MCH MCHC RDW Std Deviation Plt Count Neut % (Auto) Lymph % (Auto) [place] % (Auto) Eos % (Auto) Baso % (Auto) Neut # (Auto) Lymph # (Auto) [place] # (Auto) Eos # (Auto) Baso # (Auto) Immature Gran # (Auto) Absolute Nucleated RBC Immature Gran % Nucleated RBC % PT 10.9 INR 1.0 APTT 31.9 Sodium 145 Potassium 3.6 Chloride 109 H Carbon Dioxide 26.8 Anion Gap 9 BUN 18 Creatinine 0.6 Estim Creat Clear Calc 81.2 eGFR > 60 BUN/Creatinine Ratio 30 H Glucose 129 H Calculated Osmolality 292 Calcium 9.6 Corrected Calcium 9.6 Phosphorus Magnesium 1.9 Iron 12 L TIBC 431 H Iron Saturation 2 L Unsat Iron Binding 419 H Ferritin 4 L Total Bilirubin 0.3 AST 16 ALT 15 Alkaline Phosphatase 63 Troponin I < 0.002 B-Natriuretic Peptide 80 72 Total Protein 6.0 Albumin 4.1 Globulin 1.9 L Albumin/Globulin Ratio 2.2 Ur Collection Type Clean Catch Urine Color Yellow Urine Clarity Clear Urine pH 6.0 Ur Specific [place] 1.034 Urine Protein 1+ A Urine Glucose (UA) Trace Urine Ketones Trace Urine Blood Negative Urine Nitrite Negative Urine Bilirubin Negative Urine Urobilinogen (Auto) 2.0 Ur Leukocyte Esterase Positive Urine RBC 1 Urine WBC 6 H Ur Squamous Epith Cells < 1 Urine Bacteria None Blood Type O Positive Antibody Screen NEGATIVE Crossmatch See Detail Blood Bank Wristband ID Yes 12/17/24 04:20 WBC 5.0 RBC 4.00 Hgb 9.1 L D Hct 31.0 L MCV 78 L MCH 22.8 L MCHC 29.4 L RDW Std Deviation 51.8 H Plt Count 385 D Neut % (Auto) 55 Lymph % (Auto) 32 [place] % (Auto) 8 Eos % (Auto) 4 Baso % (Auto) 1 Neut # (Auto) 2.7 Lymph # (Auto) 1.6 [place] # (Auto) 0.4 Eos # (Auto) 0.2 Baso # (Auto) 0.0 Immature Gran # (Auto) 0.01 H Absolute Nucleated RBC 0.00 Immature Gran % 0 Nucleated RBC % 0 PT 10.9 INR 1.0 APTT 32.2 Sodium 144 Potassium 4.2 D Chloride 110 H Carbon Dioxide 26.1 Anion Gap 8 BUN 14 Creatinine 0.6 Estim Creat Clear Calc 81.2 eGFR > 60 BUN/Creatinine Ratio 23 H Glucose 82 Calculated Osmolality 286 Calcium 9.1 Corrected Calcium Phosphorus 3.8 Magnesium 2.1 Iron TIBC Iron Saturation Unsat Iron Binding Ferritin Total Bilirubin AST ALT Alkaline Phosphatase Troponin I B-Natriuretic Peptide Total Protein Albumin Globulin Albumin/Globulin Ratio Ur Collection Type Urine Color Urine Clarity Urine pH Ur Specific [place] Urine Protein Urine Glucose (UA) Urine Ketones Urine Blood Urine Nitrite Urine Bilirubin Urine Urobilinogen (Auto) Ur Leukocyte Esterase Urine RBC Urine WBC Ur Squamous Epith Cells Urine Bacteria Blood Type Antibody Screen Crossmatch Blood Bank Wristband ID Impressions Impression: Posthemorrhagic anemia Clear liquid diet today EGD in the morning Assessment & Plan A&P Narrative # Occult GI bleeding grossly Hemoccult positive stool # Acute posthemorrhagic anemia plan I agree with the blood transfusion consent obtained for fiberoptic esophagogastroduodenoscopy with possible biopsy possible therapeutic intervention under intravenous moderate sedation n.p.o. at midnight tonight patient can have clear liquid diet till midnight tonight IV Protonix will follow the patient If the EGD is absolutely normal we will consider doing a fiberoptic colonoscopy prior to discharge Agree with the blood transfusion Thank you very much for the opportunity to participate in the care of this patient Other medical problems include Essential hypertension Bronchial asthma Time Spent With Patient Time: Total time spent is greater than 50% in coordination of care (as documented) at patient's floor/unit and/or counseling patient:
[2024-12-17] MEDS: MONTELUKAST SODIUM 10 MG TABLET PO (20:08)
[2024-12-18] VITALS (19 sets, daily range): BP systolic 109–164; BP diastolic 68–100; PULSE 64–91; RESP 13–20; TEMP 36.1–36.7; O2SAT 92–98
[2024-12-18 05:51] LABS: Basophils # (Auto) 0.0 Thou/mm3 (0.0-0.2); Basophils % (Auto) 1 % (0-2.5); Eosinophils # (Auto) 0.3 Thou/mm3 (0.0-0.5); Eosinophils % (Auto) 6 % (0-10); Hematocrit 30.7 % (36.0-46.0); Hemoglobin 9.2 g/dL (12.0-16.0); Immature Granulocytes Auto 0.01 Thou/mm3 (0.00-0.00); Lymphocytes # (Auto) 1.1 Thou/mm3 (1.0-4.8); Lymphocytes % (Auto) 24 % (10-50); Mean Corpuscular HGB Conc 30.0 g/dl (31.0-37.0); Mean Corpuscular Hemoglobin 22.8 pg (25.0-35.0); Mean Corpuscular Volume 76 fL (80-100); Monocytes # (Auto) 0.4 Thou/mm3 (0.0-0.8); Monocytes % (Auto) 9 % (0-12); Neutrophils # (Auto) 2.8 Thou/mm3 (1.8-7.7); Neutrophils % (Auto) 61 % (37-80); Nucleated Red Blood Cell # 0.00 Thou/mm3 (0.00-0.00); Nucleated Red Blood Cell % 0 /100 WBC (0); Platelet Count 390 Thou/mm3 (140-440); RDW Standard Deviation 51.5 fL (36.4-46.3); Red Blood Count 4.03 Miln/mm3 (4.00-5.20); White Blood Count 4.6 Thou/mm3 (3.6-11.0)
[2024-12-18 06:15] LABS: Anion Gap 9 (7-16); BUN/Creatinine Ratio 12 Ratio (12-20); Blood Urea Nitrogen 7 mg/dL (9-23); Calcium 9.3 mg/dL (8.3-10.6); Carbon Dioxide 26.4 mMol/L (20.0-31.0); Chloride 109 mMol/L (98-107); Creatinine (Component) 0.6 mg/dL (0.6-1.3); Estimated Creatinine Clearance 81.6 mL/min (>60); Glucose 89 mg/dL (74-106); Magnesium 1.6 mg/dL (1.6-2.6); Osmolality,Calculated 283 (275-295); Phosphorous 3.8 mg/dL (2.4-5.1); Potassium 3.6 mMol/L (3.4-5.1); Sodium 144 mMol/L (136-145); eGFR > 60 See Note
--- NOTE | 2024-12-18 08:17 | ESPR_ITS ---
<Statement entered by Alvaro Sullivan MD - 12/18/24 17:16> Senior Resident Attestation: I supervised/discussed management plan with dietetic intern physician Dr. Michelle, and was involved in the care of this patient. I personally saw and examined the patient and discussed the assessment and plan with the entire medicine team, including my attending. I agree with the assessment and plan as documented. Patient underwent EGD today showing mild gastritis. She was scheduled for colonoscopy and was started on GoLytely. Her hemoglobin is stable. No melena or hematemesis reported. Continue current management and monitor patient. Patient's care was discussed with attending physician, Dr. Castañeda. Alvaro Sullivan MD PGY-3. Documentation for date of: 12/18/24 Subjective Subjective Interval history: 12/18/24: HAYDEE. SNOWS. Patient completed EGD with Dr. Meyer today. Patient tolerated the procedure well. Patient denies any symptoms at this time except for fatigue. Exam Vital Signs Temp Pulse Resp BP Pulse Ox O2 Del Method 97.2 F 64 18 109/68 98 Room Air 12/18/24 04:00 12/18/24 04:00 12/18/24 04:00 12/18/24 04:00 12/18/24 04:00 12/18/24 04:00 Narrative Exam Gen: Well-developed and well-nourished. Pale appearing. HEENT: NCAT, PERRLA, EOMI, MMM, anicteric conjunctivae. CVS: normal S1 and S2. RRR. No M/R/G. Resp: CTA B/L. No rhonchi, rales, crackles or wheezing. Abd: soft, non-tender, non-distended. MSK: Good ROM in BUE & BLE. No edema or rash. Neuro: CN II-XII grossly intact. Strength 5/5 in BUE & BLE. Alert and oriented x3. Psych: appropriate mood and affect. Objective Labs 12/19/24 05:31 12/19/24 05:31 Labs: Laboratory Results - last 24 hr 12/17/24 12/18/24 11:44 04:41 WBC 4.6 RBC 4.03 Hgb 9.8 L 9.2 L Hct 32.9 L 30.7 L MCV 76 L MCH 22.8 L MCHC 30.0 L RDW Std Deviation 51.5 H Plt Count 390 Neut % (Auto) 61 Lymph % (Auto) 24 [place] % (Auto) 9 Eos % (Auto) 6 Baso % (Auto) 1 Neut # (Auto) 2.8 Lymph # (Auto) 1.1 [place] # (Auto) 0.4 Eos # (Auto) 0.3 Baso # (Auto) 0.0 Immature Gran # (Auto) 0.01 H Absolute Nucleated RBC 0.00 Immature Gran % 0 Nucleated RBC % 0 Sodium 144 Potassium 3.6 D Chloride 109 H Carbon Dioxide 26.4 Anion Gap 9 BUN 7 L Creatinine 0.6 Estim Creat Clear Calc 81.6 eGFR > 60 BUN/Creatinine Ratio 12 Glucose 89 Calculated Osmolality 283 Calcium 9.3 Phosphorus 3.8 Magnesium 1.6 Quality Measures Quality Measures none Assessment & Plan Assessment Current Active Medications: Generic Name Dose Route Start Last Admin Trade Name Freq PRN Reason Stop Dose Admin Acetaminophen 650 mg 12/16/24 23:42 Acetaminophen Supp 650 Mg Supp [place] 01/15/25 23:41 Q6HR PRN Fever > 100.4 or pain 1-3 Hydrocodone Bitart/Acetaminophen 1 tab 12/16/24 23:42 Hydrocodone/Apap 5/325 Tablet PO 12/21/24 23:41 Q4HR PRN PAIN SCALE 4-10(Mod-Sev Albuterol/Ipratropium 3 ml 12/16/24 23:42 Albuterol/Ipratropium (Duoneb) Rt Sirisha 3 Ml Nebu INH 01/15/25 23:41 Q2HR PRN SHORTNESS OF BREATH OR WHEEZE Atorvastatin Calcium 20 mg 12/18/24 21:00 Atorvastatin Calcium 20 Mg Tablet PO 01/17/25 20:59 HS DAYNE Diphenhydramine HCl 25 mg 12/18/24 08:06 Diphenhydramine Inj 50 Mg/Ml Vial IVP 12/18/24 10:07 [id number] PRN MODERATE SEDATION Fentanyl Citrate 50 mcg 12/18/24 08:06 Fentanyl Cit Inj 50 Mcg/Ml Amp 2ml IVP 12/18/24 10:07 Q2M PRN MODERATE SEDATION Magnesium Sulfate 4 gm in 50 mls @ 12.5 mls/hr 12/18/24 07:48 Magnesium Sulfate Ivpb IV 12/18/24 11:47 X1 ONE Sodium Chloride 500 mls @ 20 mls/hr 12/18/24 08:06 Ns IV 12/19/24 08:05 .Q24H ONE Midazolam HCl 2 mg 12/18/24 08:06 Midazolam Inj 1 Mg/Ml Vial 2 Ml IVP 12/18/24 10:07 Q2M PRN Moderate Sedation Montelukast Sodium 10 mg 12/17/24 21:00 12/17/24 20:08 Montelukast Sodium 10 Mg Tablet PO 01/16/25 20:59 10 mg QPM DAYEN Administration Ondansetron HCl 4 mg 12/16/24 23:42 Ondansetron Inj 2 Mg/Ml Inj 2 Ml IVP 01/15/25 23:41 Q6H PRN NAUSEA OR VOMITING Protocol Pantoprazole Sodium 40 mg 12/17/24 09:00 12/17/24 08:38 Pantoprazole Inj 40 Mg Vial IVP 01/16/25 08:59 40 mg QDAY DAYNE Administration Plan 64 y/o F with PMHx significant for asthma, hypertension, HLD, arthritis, diverticulitis presents with chief complaint of weakness and dyspnea x 2 weeks, admitted for GI bleed with acute symptomatic anemia. #GI bleed #Acute symptomatic anemia #Severe Iron deficiency anemia #Diverticulosis #Gastritis #Erythematous duodenopathy Patient presented with cc of progressive dyspnea on exertion and weakness x2 weeks. x1 episode of melena 10 days ago. At presentation hemoglobin 6.5, 2 units of PRBC transfused in the ED. Stool occult blood test positive. CT A/P showed diverticulosis without inflammation, rectal wall thickening concerning for malignancy vs proctitis, and multiple uterine fibroids. Patient denies any hematemesis, hematochezia, vaginal bleeding, hemturia, unintended weight loss, N/V/D. Not on any anticoagulants. Hgb: 6.5-->9.1-->9.2, otherwise unremarkable CBC and CMP Iron: 12, TIBC: 431, Iron sat: 2, Ferritin: 4 Unremarkable CXR DDX: upper (PUD, gastritis) vs lower GI bleeding (AVM, malignancy, diverticulosis, and hemorrhoids) EGD showed gastritis and erythematous duodenopathy. Given no active bleeding visible via EGD and since findings on EGD do not explain the Hgb of 6.5, patient will be taken for colonoscopy with Dr. Meyer tomorrow. Plan: - CLD then NPO at midnight for colonoscopy - Monitor hemoglobin, transfuse as needed - IVF maintanence at 80 - Protonix IV 40 mg daily - Will consider IV Iron if indicated #HTN #Arthritis #Asthma #HLD Chronic. Patient history as stated. - DuoNebs as needed - Continue home medications montelucast, and atorvastatin - Held home lisinopril due to low BP DVT prophylaxis: SCDs GI prophylaxis: Protonix Diet: CLD then NPO at midnight Lines: Peripheral IV Code status: Full code Plan of care discussed with attending Dr. Castañeda and chief resident Dr. Laurie Michelle, DO PGY?1 Attending Provider Attestation/Addendum Shante Bunn, DO, attest that I was physically present for the cazares portions of the service and evaluated the patient with the resident and I reviewed and discussed the case with the resident and agree with the resident's findings and plans of care as documented above Patient seen and evaluated this AM after endoscopy. Patient reports feeling drowsy. Discussed findings of EGD including gastritis and erythematous duodenopathy. H/H has otherwise been stable. Colon prep ordered by GI to further undergo colonoscopy tomorrow as source of bleeding remains obscure. Patient denies any chest pain, fevers, chills, nausea, vomiting, shortness of breath otherwise.
[2024-12-18] MEDS: SODIUM CHLORIDE 0.9% 500 ML 500 ML 20 ML IV (08:18)
--- NOTE | 2024-12-18 08:57 | SUR.PHASEI ---
pt received from OR in recovery bay 1. pt asleep but responds to voice, breathing unlabored on room air. v/s stable. report received from Cely MARIA.
--- NOTE | 2024-12-18 09:30 | SUR.PHASEI ---
pt asleep but responds to voice, breathing unlabored on room air. v/s stable. report called to Ayah MARIA. pt will be transferred to room at this time.
[2024-12-18] MEDS: NA SU/NAHCO3/KC/PEG (Golytely) 4,000 ML BTL 4000 ML PO (11:19)
[2024-12-18] MEDS: Magnesium Sulfate 4 GM Ivpb 4 GM/50 ML BAG IV (11:20)
--- NOTE | 2024-12-18 14:23 | PC.SS ---
SS follow up note; Patient had an endoscopy today. Patient will discharge home when medically cleared.
[2024-12-18] MEDS: ATORVASTATIN CALCIUM 20 MG TABLET PO (20:08)
[2024-12-18] MEDS: MONTELUKAST SODIUM 10 MG TABLET PO (20:08)
[2024-12-19] VITALS (18 sets, daily range): BP systolic 113–154; BP diastolic 71–98; PULSE 68–93; RESP 15–21; TEMP 36.1–37.2; O2SAT 93–100; BMI 24.8
[2024-12-19 06:13] LABS: Basophils # (Auto) 0.0 Thou/mm3 (0.0-0.2); Basophils % (Auto) 1 % (0-2.5); Eosinophils # (Auto) 0.2 Thou/mm3 (0.0-0.5); Eosinophils % (Auto) 4 % (0-10); Hematocrit 30.5 % (36.0-46.0); Hemoglobin 9.1 g/dL (12.0-16.0); Immature Granulocytes Auto 0.00 Thou/mm3 (0.00-0.00); Lymphocytes # (Auto) 1.1 Thou/mm3 (1.0-4.8); Lymphocytes % (Auto) 28 % (10-50); Mean Corpuscular HGB Conc 29.8 g/dl (31.0-37.0); Mean Corpuscular Hemoglobin 22.9 pg (25.0-35.0); Mean Corpuscular Volume 77 fL (80-100); Monocytes # (Auto) 0.4 Thou/mm3 (0.0-0.8); Monocytes % (Auto) 9 % (0-12); Neutrophils # (Auto) 2.3 Thou/mm3 (1.8-7.7); Neutrophils % (Auto) 58 % (37-80); Nucleated Red Blood Cell # 0.00 Thou/mm3 (0.00-0.00); Nucleated Red Blood Cell % 0 /100 WBC (0); Platelet Count 379 Thou/mm3 (140-440); RDW Standard Deviation 51.7 fL (36.4-46.3); Red Blood Count 3.97 Miln/mm3 (4.00-5.20); White Blood Count 4.0 Thou/mm3 (3.6-11.0)
[2024-12-19 06:59] LABS: Anion Gap 9 (7-16); BUN/Creatinine Ratio 12 Ratio (12-20); Blood Urea Nitrogen 7 mg/dL (9-23); Calcium 8.7 mg/dL (8.3-10.6); Carbon Dioxide 27.3 mMol/L (20.0-31.0); Chloride 109 mMol/L (98-107); Creatinine (Component) 0.6 mg/dL (0.6-1.3); Estimated Creatinine Clearance 81.6 mL/min (>60); Glucose 83 mg/dL (74-106); Magnesium 2.3 mg/dL (1.6-2.6); Osmolality,Calculated 285 (275-295); Phosphorous 3.4 mg/dL (2.4-5.1); Potassium 3.6 mMol/L (3.4-5.1); Sodium 145 mMol/L (136-145); eGFR > 60 See Note
--- NOTE | 2024-12-19 09:49 | ESPR_ITS ---
<Statement entered by Emil Mo MD - 12/20/24 08:39> Patient was examined and case was reviewed with team including attending physician. Note reviewed, I agree with most of its contents and agree with the patient's care. Patient seen today at the bedside found awake, alert, orientedx3. No overnight events reported. Vital signs stable at this time. Patient pending colonoscopy today by GI team. Emil Mo MD PGY-2 Documentation for date of: 12/19/24 Subjective Subjective Interval history: 12/19/24: KENDELLON. VSS. Patient states that she is feeling well and her fatigue has resolved. Patient denies any nausea or vomiting. Patient has noted some dysuria however she thinks it is due to constant wiping because of frequent urination due to increased liquid intake. Exam Vital Signs Temp Pulse Resp BP Pulse Ox O2 Del Method O2 Flow Rate 97.0 F 72 21 H 129/78 95 Room Air 3 12/19/24 08:00 12/19/24 08:00 12/19/24 08:00 12/19/24 08:00 12/19/24 08:00 12/19/24 08:00 12/18/24 08:50 Narrative Exam Gen: Well-developed and well-nourished. Pale appearing. HEENT: NCAT, PERRLA, EOMI, MMM, anicteric conjunctivae. CVS: normal S1 and S2. RRR. No M/R/G. Resp: CTA B/L. No rhonchi, rales, crackles or wheezing. Abd: soft, non-tender, non-distended. MSK: Good ROM in BUE & BLE. No edema or rash. Neuro: CN II-XII grossly intact. Strength 5/5 in BUE & BLE. Alert and oriented x3. Psych: appropriate mood and affect. Objective Labs 12/20/24 04:50 12/20/24 04:50 Labs: Laboratory Results - last 24 hr 12/19/24 05:31 WBC 4.0 RBC 3.97 L Hgb 9.1 L Hct 30.5 L MCV 77 L MCH 22.9 L MCHC 29.8 L RDW Std Deviation 51.7 H Plt Count 379 Neut % (Auto) 58 Lymph % (Auto) 28 [place] % (Auto) 9 Eos % (Auto) 4 Baso % (Auto) 1 Neut # (Auto) 2.3 Lymph # (Auto) 1.1 [place] # (Auto) 0.4 Eos # (Auto) 0.2 Baso # (Auto) 0.0 Immature Gran # (Auto) 0.00 Absolute Nucleated RBC 0.00 Immature Gran % 0 Nucleated RBC % 0 Sodium 145 Potassium 3.6 Chloride 109 H Carbon Dioxide 27.3 Anion Gap 9 BUN 7 L Creatinine 0.6 Estim Creat Clear Calc 81.6 eGFR > 60 BUN/Creatinine Ratio 12 Glucose 83 Calculated Osmolality 285 Calcium 8.7 Phosphorus 3.4 Magnesium 2.3 Quality Measures Quality Measures none Assessment & Plan Assessment Current Active Medications: Generic Name Dose Route Start Last Admin Trade Name Freq PRN Reason Stop Dose Admin Acetaminophen 650 mg 12/16/24 23:42 Acetaminophen Supp 650 Mg Supp [place] 01/15/25 23:41 Q6HR PRN Fever > 100.4 or pain 1-3 Hydrocodone Bitart/Acetaminophen 1 tab 12/16/24 23:42 Hydrocodone/Apap 5/325 Tablet PO 12/21/24 23:41 Q4HR PRN PAIN SCALE 4-10(Mod-Sev Albuterol/Ipratropium 3 ml 12/16/24 23:42 Albuterol/Ipratropium (Duoneb) Rt Sirisha 3 Ml Nebu INH 01/15/25 23:41 Q2HR PRN SHORTNESS OF BREATH OR WHEEZE Atorvastatin Calcium 20 mg 12/18/24 21:00 12/18/24 20:08 Atorvastatin Calcium 20 Mg Tablet PO 01/17/25 20:59 20 mg HS DAYNE Administration Montelukast Sodium 10 mg 12/17/24 21:00 12/18/24 20:08 Montelukast Sodium 10 Mg Tablet PO 01/16/25 20:59 10 mg QPM DAYNE Administration Ondansetron HCl 4 mg 12/16/24 23:42 Ondansetron Inj 2 Mg/Ml Inj 2 Ml IVP 01/15/25 23:41 Q6H PRN NAUSEA OR VOMITING Protocol Pantoprazole Sodium 40 mg 12/17/24 09:00 12/19/24 08:42 Pantoprazole Inj 40 Mg Vial IVP 01/16/25 08:59 40 mg QDAY DAYNE Administration Plan 64 y/o F with PMHx significant for asthma, hypertension, HLD, arthritis, diverticulitis presents with chief complaint of weakness and dyspnea x 2 weeks, admitted for GI bleed with acute symptomatic anemia. #GI bleed #Acute symptomatic anemia #Severe Iron deficiency anemia #Diverticulosis #Gastritis #Erythematous duodenopathy Patient presented with cc of progressive dyspnea on exertion and weakness x2 weeks. x1 episode of melena 10 days ago. At presentation hemoglobin 6.5, 2 units of PRBC transfused in the ED. Stool occult blood test positive. CT A/P showed diverticulosis without inflammation, rectal wall thickening concerning for malignancy vs proctitis, and multiple uterine fibroids. Patient denies any hematemesis, hematochezia, vaginal bleeding, hemturia, unintended weight loss, N/V/D. Not on any anticoagulants. Hgb: 6.5-->9.1-->9.2--> 9.1, otherwise unremarkable CBC and CMP Iron: 12, TIBC: 431, Iron sat: 2, Ferritin: 4 Unremarkable CXR DDX: upper (PUD, gastritis) vs lower GI bleeding (AVM, malignancy, diverticulosis, and hemorrhoids) EGD showed gastritis and erythematous duodenopathy. Given no active bleeding visible via EGD and since findings on EGD do not explain the Hgb of 6.5, patient will be taken for colonoscopy with Dr. Meyer today. Plan: - Colonoscopy with Dr. Meyer today - Monitor hemoglobin, transfuse as needed - IVF maintanence at 80 - Protonix IV 40 mg daily - Will consider IV Iron if indicated #Dysuria Patient has noted dysuria today but attributes it to frequent wiping of her genital area 2/2 frequent urination due to increased fluid intake. Initial UA +WBC and leukocyte esterate but negative for bacteria and nitrites. Plan: - Ordered UA - CTM #HTN #Arthritis #Asthma #HLD Chronic. Patient history as stated. - DuoNebs as needed - Continue home medications montelucast, and atorvastatin - Held home lisinopril due to low BP DVT prophylaxis: SCDs GI prophylaxis: Protonix Diet: NPO Lines: Peripheral IV Code status: Full code Plan of care discussed with attending Dr. Castañeda and chief resident Dr. Marko Michelle, DO PGY?1 Attending Provider Attestation/Addendum Shante Bunn, DO, attest that I was physically present for the cazares portions of the service and evaluated the patient with the resident and I reviewed and discussed the case with the resident and agree with the resident's findings and plans of care as documented above Patient seen eval this a.m. Patient has completed her colon prep. She reports some dysuria. Pending UA at this time. Hemoglobin otherwise stable. If colonoscopy is negative, patient will likely require capsule endoscopy outpatient which she is aware of. Will follow-up with colonoscopy results this evening. Anticipate discharge within the next 24 to 48 hours depending on results and if hemoglobin is stable.
--- NOTE | 2024-12-19 11:27 | CHAP ---
Patient was visited by the Spiritual Care Volunteer who prayed for them. (Volunteer was in the hospital from 09:00-11:27)
[2024-12-19 15:46] LABS: Collection Type, Urine Clean Catch
[2024-12-19 16:00] LABS: Bilirubin,Urine Negative (Negative); Blood,Urine Negative (Negative); Clarity,Urine Clear (Clear/Hazy); Color,Urine Yellow (Lt Yel-Yel); Culture Indicated,Urine Not Indicated; Glucose, Urine Negative (Negative); Ketones,Urine 2+ (Negative); Leukocyte Esterase,Urine Negative (Negative); Nitrite,Urine Negative (Negative); PH,Urine 7.0 (5.0-7.0); Protein,Urine Negative (Neg - Trace); RBC,Urine 1 /hpf (0-3); Specific Gravity,Urine 1.021 (1.001-1.035); Squamous Epithelial Cell,Urine < 1 /hpf (0-5); Urobilinogen,Urine Negative mg/dL (0.0-1.0); WBC,Urine 3 /hpf (0-5)
--- NOTE | 2024-12-19 16:00 | PC.SS ---
Rounding: Pending colonoscopy, DC plan home
--- NOTE | 2024-12-19 17:37 | PC.NURSE ---
pt to endo via david
[2024-12-19] MEDS: SODIUM CHLORIDE 0.9% 500 ML 500 ML 20 ML IV (19:18)
[2024-12-19] MEDS: LIDOCAINE JELLY 2% (Urojet) 10 ML TUBE TOP (19:31)
--- NOTE | 2024-12-19 19:51 | SUR.PHASEI ---
pt received from OR in recovery bay 2. pt asleep but responds to voice, breathing unlabored on 3l nc. v/s stable. report received from Radha MARIA.
--- NOTE | 2024-12-19 20:40 | SUR.PHASEI ---
pt asleep but responds to voice, breathing unlabored on room air. v/s stable. report called to Yessenia Marrero. pt will be transferred to room at this time.
[2024-12-19] MEDS: ATORVASTATIN CALCIUM 20 MG TABLET PO (21:38)
[2024-12-19] MEDS: MONTELUKAST SODIUM 10 MG TABLET PO (21:38)
[2024-12-20] VITALS: BP 114/74; PULSE 71; PULSE 73; RESP 16; TEMP 36.6; O2SAT 94
[2024-12-20 04:00] VITALS: BP 120/70; PULSE 68; PULSE 71; RESP 15; TEMP 36; O2SAT 96
[2024-12-20 05:45] LABS: Basophils # (Auto) 0.0 Thou/mm3 (0.0-0.2); Basophils % (Auto) 0 % (0-2.5); Eosinophils # (Auto) 0.1 Thou/mm3 (0.0-0.5); Eosinophils % (Auto) 3 % (0-10); Hematocrit 29.8 % (36.0-46.0); Immature Granulocytes Auto 0.01 Thou/mm3 (0.00-0.00); Lymphocytes # (Auto) 1.0 Thou/mm3 (1.0-4.8); Lymphocytes % (Auto) 21 % (10-50); Mean Corpuscular HGB Conc 29.5 g/dl (31.0-37.0); Mean Corpuscular Hemoglobin 22.6 pg (25.0-35.0); Mean Corpuscular Volume 77 fL (80-100); Monocytes # (Auto) 0.5 Thou/mm3 (0.0-0.8); Monocytes % (Auto) 10 % (0-12); Neutrophils # (Auto) 3.1 Thou/mm3 (1.8-7.7); Neutrophils % (Auto) 66 % (37-80); Nucleated Red Blood Cell # 0.00 Thou/mm3 (0.00-0.00); Nucleated Red Blood Cell % 0 /100 WBC (0); Platelet Count 341 Thou/mm3 (140-440); RDW Standard Deviation 51.2 fL (36.4-46.3); Red Blood Count 3.89 Miln/mm3 (4.00-5.20); White Blood Count 4.7 Thou/mm3 (3.6-11.0)
[2024-12-20 05:46] LABS: Hemoglobin 8.8 g/dL (12.0-16.0)
[2024-12-20 06:15] LABS: Anion Gap 11 (7-16); BUN/Creatinine Ratio 13 Ratio (12-20); Blood Urea Nitrogen 8 mg/dL (9-23); Calcium 9.3 mg/dL (8.3-10.6); Carbon Dioxide 23.1 mMol/L (20.0-31.0); Chloride 109 mMol/L (98-107); Creatinine (Component) 0.6 mg/dL (0.6-1.3); Estimated Creatinine Clearance 79.5 mL/min (>60); Glucose 73 mg/dL (74-106); Magnesium 1.9 mg/dL (1.6-2.6); Osmolality,Calculated 282 (275-295); Phosphorous 3.8 mg/dL (2.4-5.1); Potassium 3.5 mMol/L (3.4-5.1); Sodium 143 mMol/L (136-145); eGFR > 60 See Note
--- NOTE | 2024-12-20 08:29 | PD.RESPRO ---
Documentation for date of: 12/20/24 Exam Vital Signs Temp Pulse Resp BP Pulse Ox O2 Del Method O2 Flow Rate 96.8 F 71 15 120/70 96 Room Air 3 12/20/24 04:00 12/20/24 04:00 12/20/24 04:00 12/20/24 04:00 12/20/24 04:00 12/20/24 04:00 12/19/24 20:10 Objective Labs 12/20/24 04:50 12/20/24 04:50 Labs: Laboratory Results - last 24 hr 12/19/24 12/20/24 15:15 04:50 WBC 4.7 RBC 3.89 L Hgb 8.8 L Hct 29.8 L MCV 77 L MCH 22.6 L MCHC 29.5 L RDW Std Deviation 51.2 H Plt Count 341 D Neut % (Auto) 66 Lymph % (Auto) 21 [place] % (Auto) 10 Eos % (Auto) 3 Baso % (Auto) 0 Neut # (Auto) 3.1 Lymph # (Auto) 1.0 [place] # (Auto) 0.5 Eos # (Auto) 0.1 Baso # (Auto) 0.0 Immature Gran # (Auto) 0.01 H Absolute Nucleated RBC 0.00 Immature Gran % 0 Nucleated RBC % 0 Sodium 143 Potassium 3.5 Chloride 109 H Carbon Dioxide 23.1 Anion Gap 11 BUN 8 L Creatinine 0.6 Estim Creat Clear Calc 79.5 eGFR > 60 BUN/Creatinine Ratio 13 Glucose 73 L Calculated Osmolality 282 Calcium 9.3 Phosphorus 3.8 Magnesium 1.9 Ur Collection Type Clean Catch Urine Color Yellow Urine Clarity Clear Urine pH 7.0 Ur Specific [place] 1.021 Urine Protein Negative Urine Glucose (UA) Negative Urine Ketones 2+ A Urine Blood Negative Urine Nitrite Negative Urine Bilirubin Negative Urine Urobilinogen (Auto) Negative Ur Leukocyte Esterase Negative Urine RBC 1 Urine WBC 3 Ur Squamous Epith Cells < 1 Urine Bacteria None Ur Culture Indicated? Not Indicated Quality Measures Quality Measures none Assessment & Plan Assessment Current Active Medications: Generic Name Dose Route Start Last Admin Trade Name Freq PRN Reason Stop Dose Admin Acetaminophen 650 mg 12/16/24 23:42 Acetaminophen Supp 650 Mg Supp [place] 01/15/25 23:41 Q6HR PRN Fever > 100.4 or pain 1-3 Hydrocodone Bitart/Acetaminophen 1 tab 12/16/24 23:42 Hydrocodone/Apap 5/325 Tablet PO 12/21/24 23:41 Q4HR PRN PAIN SCALE 4-10(Mod-Sev Albuterol/Ipratropium 3 ml 12/16/24 23:42 Albuterol/Ipratropium (Duoneb) Rt Sirisha 3 Ml Nebu INH 01/15/25 23:41 Q2HR PRN SHORTNESS OF BREATH OR WHEEZE Atorvastatin Calcium 20 mg 12/18/24 21:00 12/19/24 21:38 Atorvastatin Calcium 20 Mg Tablet PO 01/17/25 20:59 20 mg HS DAYNE Administration Sodium Chloride 500 mls @ 20 mls/hr 12/19/24 19:11 12/19/24 19:18 Ns IV 12/20/24 19:10 20 mls/hr .Q24H ONE Administration Montelukast Sodium 10 mg 12/17/24 21:00 12/19/24 21:38 Montelukast Sodium 10 Mg Tablet PO 01/16/25 20:59 10 mg QPM DAYNE Administration Ondansetron HCl 4 mg 12/16/24 23:42 Ondansetron Inj 2 Mg/Ml Inj 2 Ml IVP 01/15/25 23:41 Q6H PRN NAUSEA OR VOMITING Protocol Pantoprazole Sodium 40 mg 12/17/24 09:00 12/20/24 08:17 Pantoprazole Inj 40 Mg Vial IVP 01/16/25 08:59 40 mg QDAY DAYNE Administration
[2024-12-20 08:44] VITALS: BP 135/75; PULSE 76; RESP 19; TEMP 36.9; O2SAT 96
[2024-12-20 12:00] VITALS: BP 122/82; PULSE 8; RESP 17; TEMP 36.6; O2SAT 95
[2024-12-20 14:35] VITALS: PULSE 63; RESP 20; O2SAT 94
[2024-12-20 16:00] VITALS: BP 124/77; PULSE 82; RESP 16; TEMP 36.7; O2SAT 97
[2024-12-20 16:05] LABS: Hematocrit 31.7 % (36.0-46.0); Hemoglobin 9.4 g/dL (12.0-16.0)
--- NOTE | 2024-12-20 16:14 | ESPR_ITS ---
Documentation for date of: 12/20/24 Subjective Subjective Interval history: Patient evaluated colonoscopy showed severe diverticulosis of the sigmoid colon and descending colon with narrowing otherwise normal colonoscopy to cecum Upper endoscopy showed diffuse gastritis Hemoglobin hematocrit 8.8 and 29.8 Another H&H is pending Exam Vital Signs Temp Pulse Resp BP Pulse Ox O2 Del Method O2 Flow Rate 97.8 F 63 20 122/82 94 L Room Air 3 12/20/24 12:00 12/20/24 14:35 12/20/24 14:35 12/20/24 12:00 12/20/24 14:35 12/20/24 12:00 12/19/24 20:10 Objective Labs 12/20/24 04:50 12/20/24 04:50 Labs: Laboratory Results - last 24 hr 12/20/24 04:50 WBC 4.7 RBC 3.89 L Hgb 8.8 L Hct 29.8 L MCV 77 L MCH 22.6 L MCHC 29.5 L RDW Std Deviation 51.2 H Plt Count 341 D Neut % (Auto) 66 Lymph % (Auto) 21 [place] % (Auto) 10 Eos % (Auto) 3 Baso % (Auto) 0 Neut # (Auto) 3.1 Lymph # (Auto) 1.0 [place] # (Auto) 0.5 Eos # (Auto) 0.1 Baso # (Auto) 0.0 Immature Gran # (Auto) 0.01 H Absolute Nucleated RBC 0.00 Immature Gran % 0 Nucleated RBC % 0 Sodium 143 Potassium 3.5 Chloride 109 H Carbon Dioxide 23.1 Anion Gap 11 BUN 8 L Creatinine 0.6 Estim Creat Clear Calc 79.5 eGFR > 60 BUN/Creatinine Ratio 13 Glucose 73 L Calculated Osmolality 282 Calcium 9.3 Phosphorus 3.8 Magnesium 1.9 Impressions Impression: Severe diverticulosis sigmoid colon Severe diverticulosis descending colon Gastritis Advance diet as tolerated Repeat CBC if it is stable patient can be discharged to be followed by her PCP Assessment & Plan A&P Narrative # Occult GI bleeding grossly Hemoccult positive stool # Acute posthemorrhagic anemia plan I agree with the blood transfusion consent obtained for fiberoptic esophagogastroduodenoscopy with possible biopsy possible therapeutic intervention under intravenous moderate sedation n.p.o. at midnight tonight patient can have clear liquid diet till midnight tonight IV Protonix will follow the patient If the EGD is absolutely normal we will consider doing a fiberoptic colonoscopy prior to discharge Agree with the blood transfusion Thank you very much for the opportunity to participate in the care of this patient Other medical problems include Essential hypertension Bronchial asthma Time Spent With Patient Time: Total time spent is greater than 50% in coordination of care (as documented) at patient's floor/unit and/or counseling patient:
--- NOTE | 2024-12-20 16:23 | ESDS_ITS ---
<Statement entered by Michelle Hollis MD - 12/21/24 16:26> I Michelle Hollis MD reviewed the note and agree with the resident's assessment & plan with modifications/additions/exceptions as below. I have personally reviewed labs, imaging, home meds/prior records, examined the patient, formulated and discussed management plan with the IM team. Patient admitted for lower GI bleed s/p transfusion and colonoscopy revealing diverticulosis. Postprocedure hemoglobin stable GI is okay for discharge continue PPI as per GI recommendations. CT abdomen/pelvis did reveal multiple uterine masses, recommend follow-up with [facility] [employer] [facility] in outpatient settings. For further evaluation and management. Planned Discharge Date 12/20/24 DS: Providers Provider Date of admission: 12/16/24 23:43 Primary care physician: Jarrod Mixon PA-C Admitting Provider: Raymundo Mcmanus MD Attending Provider on Admission: Shante Castañeda DO Consults: 12/16/24 18:30 Consult to Gastroenterology Stat Comment: Consulting Provider: Gus Meyer 12/20/24 09:24 Referral Physical Therapy Stat Comment: dc planning Physician Instructions: Attending Provider on DC: Dr. Hollis Discharging Provider: Resident Hossein Anticipated date of discharge: 12/20/24 DS: Diagnosis Problem List Completed Was Problem List Reviewed/Reconciled?: Yes Hospital Course Hospital Course Hospital course: 64 y/o F with PMHx significant for asthma, hypertension, HLD, arthritis, diverticulitis presents with chief complaint of weakness and dyspnea x 2 weeks and x1 episode of melena 10 days ago, admitted for GI bleed with acute symptomatic anemia, found to have hemoglobin 6.5, 2 units of PRBC transfused in the ED. Stool occult blood test positive. CT A/P showed diverticulosis without inflammation, rectal wall thickening concerning for malignancy vs proctitis, and multiple uterine fibroids. Patient denied any hematemesis, hematochezia, vaginal bleeding, hemturia, unintended weight loss, N/V/D. Not on any anticoagulants. Hgb improved initially to 9.1 and is stable at 9.4 on 12/20/24. Iron studies showed severe iron deficiency anemia with Iron: 12, TIBC: 431, Iron sat: 2, Ferritin: 4, otherwise unremarkable CBC and CMP. Unremarkable CXR. GI, Dr. Meyer, was consulted who later performed EGD which showed gastritis and erythematous duodenopathy. Given no active bleeding visible via EGD and since findings on EGD do not explain the Hgb of 6.5, patient will be taken for colonoscopy with Dr. Meyer the day after. Colonoscopy showed hemorrhoids and severe diverticulosis in sigmoid and descending colon. GI recommended discharge and follow up outpatient if tolerating diet and stable Hgb. Patient also reported some dysuria which she attributed it to frequent wiping of her genital area 2/2 frequent urination due to increased fluid intake. UA unremarkable. Patient's dysuria was resolved with no intervention. Patient's all other medical problems were managed accordingly. Patient is in stable condition for discharge, tolerating diet and hemoglobin stable. Patient's presenting symptoms have improved and is currently asymptomatic. All questions answered and ED return precautions given. #GI bleed #Acute symptomatic anemia #Severe Iron deficiency anemia #Diverticulosis #Gastritis #Erythematous duodenopathy #Dysuria #Hemorrhoids #HTN #Arthritis #Asthma #HLD Continue home medication as prescribed. Increase dietary fiber and fluid intake, consider over the counter stool softeners if constipation. Follow up with PCP within 2 weeks. Should your symptoms recur or worsen patient is instructed to return to the ED. Plan of care discussed with attending Dr. Hollis and chief resident Dr. Laurie Michelle, DO PGY?1 Status at Discharge Functional status at discharge: independent ambulation Overall status at discharge: patient is back to baseline Time Spent with Patient Time attestation: Total time spent providing and/or coordinating discharge services: Time spent: Greater than 30 minutes Exam Vital Signs Temp Pulse Resp BP Pulse Ox O2 Del Method O2 Flow Rate 97.8 F 63 20 122/82 94 L Room Air 3 12/20/24 12:00 12/20/24 14:35 12/20/24 14:35 12/20/24 12:00 12/20/24 14:35 12/20/24 12:00 12/19/24 20:10 Narrative Exam Gen: Well-developed and well-nourished. Pale appearing. HEENT: NCAT, PERRLA, EOMI, MMM, anicteric conjunctivae. CVS: normal S1 and S2. RRR. No M/R/G. Resp: CTA B/L. No rhonchi, rales, crackles or wheezing. Abd: soft, non-tender, non-distended. MSK: Good ROM in BUE & BLE. No edema or rash. Neuro: CN II-XII grossly intact. Strength 5/5 in BUE & BLE. Alert and oriented x3. Psych: appropriate mood and affect. Discharge Plan Plan Patient Disposition: HOME (Self Care) Patient condition on transfer: Stable Care Plan Goals: Continue home medication as prescribed. Increase dietary fiber and fluid intake, consider over the counter stool softene rs if constipation. Follow up with PCP within 2 weeks. Should your symptoms recur or worsen patient is instructed to return to the ED. Prescriptions/Referrals Prescriptions/Med Rec: Continued montelukast 10 mg Tablet 10 mg PO QPM loratadine 10 mg Tablet 10 mg PO QDAY lisinopril 5 mg tablet 5 mg PO QDAY Patient Comments: TAKE ONE TABLET BY MOUTH EVERY DAY FOR BLOOD PRESSURE atorvastatin 20 mg tablet 20 mg PO DAILY Patient Comments: TAKE ONE TABLET BY MOUTH EVERY DAY FOR CHOLESTEROL ipratropium bromide 42 mcg (0.06 %) spray,non-aerosol 2 spray INTRANASAL TID Patient Comments: INSTILL TWO SPARY IN EACH NOSTRIL THREE TIMES DAILY Referrals: Aniceto Mixon PA-C [Primary Care Provider] - Patient/Caregiver Discharge Instructions Education Materials: Diverticulosis Diverticulitis Print Language: Belarusian Stand Alone Forms: Amanda Award Info., Patient Portal Info Letter Discharge Order Discharge Orders: Discharge (Routine); Ordered 12/20/24 Ordered By: Alvaro Sullivan Quality Discharge Quality Measures VTE prophylaxis
== END 2024-12-20 17:26 | disposition home or self-care (01) | DRG 241 ==
LOC: SERX 22:39 → SERHOLD 12-17 06:16 → S3SX 12-17 06:16
PROVIDERS: Nurse Practitioner Primary Care; Physician Assistant Medical; Specialist; Student in an Organized Health Care Education/Training Program; Admitting Provider Student in an Organized Health Care Education/Training Program; Emergency Provider Emergency Medicine; PCP Physician Assistant; Visit Provider Internal Medicine
PROC: 0DB48ZX Excision of Esophagogastric Junction, Via Natural or Artificial Opening Endoscopic, Diagnostic (ICD-10-PCS; CPT 43239; principal; 2024-12-18 08:00)
PROC: 0DJD8ZZ Inspection of Lower Intestinal Tract, Via Natural or Artificial Opening Endoscopic (ICD-10-PCS; CPT 45378; principal; 2024-12-19 17:30)
DX: K29.71 Gastritis, unspecified, with bleeding (principal); J45.909 Unspecified asthma, uncomplicated; I10 Essential (primary) hypertension; D62 Acute posthemorrhagic anemia; K57.31 Diverticulosis of large intestine without perforation or abscess with bleeding; D25.9 Leiomyoma of uterus, unspecified; D75.838 Other thrombocytosis; E78.5 Hyperlipidemia, unspecified; D50.9 Iron deficiency anemia, unspecified; K64.9 Unspecified hemorrhoids; K31.89 Other diseases of stomach and duodenum; M19.90 Unspecified osteoarthritis, unspecified site; Z79.899 Other long term (current) drug therapy; R30.0 Dysuria
CPT/HCPCS: 36415; 71046; 74177; 80048; 80053; 81001; 82728; 83540; 83550; 83735; 83880; 84100; 84484; 85014; 85018; 85025; 85610; 85730; 86850; 86900; 86901; 86923; 93005; 93225; 96374; 96375; 96376; 97161; 99284; A4217; A4649; J1200; J2250; J2405; J2470; J3010; J3475; J3490; J7999; P9016; Q9967; A9270

== ENCOUNTER 2025-03-06 18:02 | Inpatient (IN) | payer MEDICAID, SELFPAY ==
[2025-03-06] VITALS (9 sets, daily range): BP systolic 92–116; BP diastolic 56–81; PULSE 76–87; RESP 14–21; TEMP 36.1–37; O2SAT 95–100; BMI 23.0
--- NOTE | 2025-03-06 18:45 | EKG_ITS ---
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
--- NOTE | 2025-03-06 18:46 | PD.EDRME ---
Rapid Medical Screening Exam RME Arrival date/time: 03/06/25 18:02 Chief Complaint: Dizziness Time Seen by Provider: 03/06/25 18:12 Vital signs: Vital Signs Temperature 98.5 F 03/06/25 18:39 Pulse Rate 83 03/06/25 18:39 Respiratory Rate 18 03/06/25 18:39 Blood Pressure 92/56 L 03/06/25 18:39 Pulse Oximetry (%) 95 03/06/25 18:39 Oxygen Delivery Method Room Air 03/06/25 18:39 RME Narrative: Episode of dizziness, near syncope today. Sent from clinic for hgb of 7.2. hx anemia in past with diverticulitis. Exam: Non-toxic appearing, NAD Clinical Impression: dizziness
[2025-03-06 19:21] LABS: Basophils # (Auto) 0.0 Thou/mm3 (0.0-0.2); Basophils % (Auto) 0 % (0-2.5); Eosinophils # (Auto) 0.1 Thou/mm3 (0.0-0.5); Eosinophils % (Auto) 1 % (0-10); Hematocrit 28.4 % (36.0-46.0); Immature Granulocytes Auto 0.07 Thou/mm3 (0.00-0.00); Lymphocytes # (Auto) 0.9 Thou/mm3 (1.0-4.8); Lymphocytes % (Auto) 9 % (10-50); Mean Corpuscular HGB Conc 29.6 g/dl (31.0-37.0); Mean Corpuscular Hemoglobin 23.7 pg (25.0-35.0); Mean Corpuscular Volume 80 fL (80-100); Monocytes # (Auto) 0.5 Thou/mm3 (0.0-0.8); Monocytes % (Auto) 5 % (0-12); Neutrophils # (Auto) 8.6 Thou/mm3 (1.8-7.7); Neutrophils % (Auto) 84 % (37-80); Nucleated Red Blood Cell # 0.00 Thou/mm3 (0.00-0.00); Nucleated Red Blood Cell % 0 /100 WBC (0); Platelet Count 275 Thou/mm3 (140-440); RDW Standard Deviation 62.7 fL (36.4-46.3); Red Blood Count 3.54 Miln/mm3 (4.00-5.20); White Blood Count 10.2 Thou/mm3 (3.6-11.0)
[2025-03-06 19:23] LABS: Hemoglobin 8.4 g/dL (12.0-16.0)
[2025-03-06 19:35] LABS: INR 1.0 (0.9-1.3); Partial Thromboplastin Time 22.2 Seconds (22.0-36.0); Prothrombin Time 10.3 Seconds (9.0-12.2)
[2025-03-06 19:39] LABS: Alanine Aminotransferase 13 U/L (10-49); Albumin, Serum 4.4 gm/dL (3.4-4.8); Albumin/Globulin Ratio 2.3 (1.2-2.2); Alkaline Phosphatase 68 U/L (46-116); Anion Gap 10 (7-16); Aspartate Amino Transferase 21 U/L (0-34); BUN/Creatinine Ratio 12 Ratio (12-20); Bilirubin,Total 0.3 mg/dL (0.3-1.2); Blood Urea Nitrogen 13 mg/dL (9-23); Calcium 9.3 mg/dL (8.3-10.6); Calcium (Corrected) 9.3 mg/dL (8.5-10.1); Carbon Dioxide 24.0 mMol/L (20.0-31.0); Chloride 108 mMol/L (98-107); Creatinine (Component) 1.1 mg/dL (0.6-1.3); Estimated Creatinine Clearance 42.7 mL/min (>60); Globulin 1.9 gm/dL (2.3-3.5); Glucose 106 mg/dL (74-106); Osmolality,Calculated 283 (275-295); Potassium 3.6 mMol/L (3.4-5.1); Sodium 142 mMol/L (136-145); Total Protein 6.3 gm/dL (5.7-8.2); Troponin I < 0.002 ng/mL (0.0-0.045); eGFR 56 See Note
--- NOTE | 2025-03-06 20:08 | PD.EDDIZZY ---
ED Dizzyness RME/HPI General Chief Complaint: Dizziness Stated Complaint: DIZZY/NEAR SYNCOPE AT 1400, SENT BY PMD FOR BLOOD Time Seen by Provider: 03/06/25 18:12 Arrival date/time: 03/06/25 18:02 64-year-old female patient with significant history of hypertension, COPD, was sent to us by PCP for possible blood transfusion, according to the patient he was working, while working, he developed sudden onset of near-syncope, dizziness, and not feeling well. When the patient arrived patient blood pressure was noted to be 92/56.'s been having black tarry stool for several days now. Weeks according to her. Denies any abdominal pain denies any vomiting blood denies any other complaints. Was admitted here last November for upper GI bleed. Patient is not taking any blood thinner. RME / HPI RME / HPI Narrative: Episode of dizziness, near syncope today. Sent from clinic for hgb of 7.2. hx anemia in past with diverticulitis. Exam: Non-toxic appearing, NAD Impression: dizziness Related Data Home Medications ?Medication ?Instructions ?Recorded ?Confirmed loratadine 10 mg tablet 10 mg PO QDAY 10/10/18 12/17/24 montelukast 10 mg tablet 10 mg PO QPM 10/10/18 12/17/24 lisinopril 5 mg tablet 5 mg PO QDAY 04/11/21 12/17/24 atorvastatin 20 mg tablet 20 mg PO DAILY 12/17/24 12/17/24 ipratropium bromide 42 mcg (0.06 2 spray intranasal TID 12/17/24 12/17/24 %) nasal spray Allergies Allergy/AdvReac Type Severity Reaction Status Date / Time No Known Allergies Allergy Verified 03/06/25 18:05 Review of Systems Review of Systems Narrative Review of Systems: Review of system reviewed and within normal limits except mentioned in HPI ED Exam Narrative Physical exam: VITAL SIGNS: Reviewed. GENERAL APPEARANCE: Alert and interactive, follows commands, no acute distress, HEAD AND FACE: Non-traumatic. ENT: PERRL, pale conjunctiva eyelid no trauma, Mucous membrane moist. NECK: Supple, nontender, no nuchal rigidity. CHEST: No tenderness, no crepitus, no paradoxical movement, no retractions. LUNGS: Clear, well ventilated, symmetric, no rales, no wheezing, no ronchi, no stridor, good breath sounds bilaterally. HEART: Regular rate, regular rhythm, no murmur, no gallops. ABDOMEN: Soft, positive bowel sounds, nondistended, no guarding, nontender, no rebound, no masses, RECTAL: Deferred. GENITAL: Deferred. NEUROLOGICAL: Gross motor function intact sensory function intact, Appropriate for age. MUSCULOSKELETAL: low back nontender, full range of motion. EXTREMITIES: Nontender, full range of motion. SKIN: Color pale dry, no rash, no lacerations, no abrasions, no contusions. LYMPHATICS: Deferred. Course Quality Measures none Orders Category Date Time Status COVID-19 Screening Questionnaire NOW Care 03/06/25 20:12 Active Decision to Admit X1 Care 03/06/25 20:11 Active EKG (ED ONLY) *Do not use* NOW Care 03/06/25 18:46 Completed NPO NOW Care 03/06/25 20:12 Active Occult Blood,Stool (Nursing) ONCE Care 03/06/25 20:02 Active Transfuse,blood/blood products ONCE Care 03/06/25 20:02 Active Consult to Gastroenterology Stat Cons 03/06/25 20:04 Ordered Diet NPO (NOW) Diet 03/06/25 20:12 Active EKG (ED Only) Stat Exams 03/06/25 18:45 Draft CBC Stat Lab 03/06/25 19:10 Completed CMP [Comprehensive Metabolic Panel] Stat Lab 03/06/25 19:10 Completed Partial Thromboplastin Time Stat Lab 03/06/25 19:10 Completed Prothrombin Time with INR Stat Lab 03/06/25 19:10 Completed Troponin I Stat Lab 03/06/25 19:10 Completed Type and Screen Stat Lab 03/06/25 19:10 Received UA [Urinalysis] Stat Lab 03/06/25 18:46 Ordered prbc [Red Blood Cells] Stat Lab 03/06/25 19:10 Received Pantoprazole Inj [Protonix Inj] Med 03/06/25 20:04 Discontinued 80 mg IVP X1 ONE Vital Signs Vital signs: Vital Signs Temperature 98.5 F 03/06/25 18:39 Pulse Rate 83 03/06/25 18:39 Respiratory Rate 18 03/06/25 18:39 Blood Pressure 92/56 L 03/06/25 18:39 Pulse Oximetry (%) 95 03/06/25 18:39 Oxygen Delivery Method Room Air 03/06/25 18:39 Dizziness MDM Narrative MDM Narrative:: 64-year-old female patient with significant history of hypertension, COPD, was sent to us by PCP for possible blood transfusion, according to the patient he was working, while working, he developed sudden onset of near-syncope, dizziness, and not feeling well. When the patient arrived patient blood pressure was noted to be 92/56.'s been having black tarry stool for several days now. Weeks according to her. Denies any abdominal pain denies any vomiting blood denies any other complaints. Was admitted here last November for upper GI bleed. Patient is not taking any blood thinner. Rectal exam was done by me, and noted some black tarry stool. Stool positive for occult blood. Patient was given 2 units of packed RBC, IV tonics, and I consulted Dr. Meyer, GI specialist on-call, who advised me to place the patient on n.p.o. for possible scope in the morning. Plan of care discussed with the patient agrees to be admitted Case discussed with hospitalist, who admitted the patient. Patient data External records reviewed:: None Clinical information provided by:: patient Social determinants that could affect healthcare access:: none Patient has the following chronic illnesses:: Hypertension, history of upper GI bleed, COPD How is presenting disease/condition affected by chronic disease/condition?: exacerbated by Evaluation data The following diagnostics were reviewed and interpreted by me:: lab results, radiology exam(s) and EKG tracing(s) Lab and/or radiology exams considered but not ordered:: None Interpretation Summary: EKG shows sinus rhythm, ventricular to 75 bpm, no ST segment elevation or depression noted. Medications / Prescriptions Medications or Prescriptions considered but not ordered:: None Medication administrations:: Medication Administration History Discontinued Medications Pantoprazole Sodium (Pantoprazole Inj 40 Mg Vial) 80 mg IVP X1 ONE Stop: 03/06/25 20:05 IV Protonix, 2 units of packed RBC Consultations Consultation(s) initiated? (list below): No Diagnosis Dizziness Differential Diagnosis: orthostatic hypotension and other (Symptomatic anemia, upper GI bleed) Most likely diagnosis given after review of the tests above:: Symptomatic anemia, upper GI bleed Admission Indicated Admission indicated?: not indicated Admission Request Was there a request for admission?: Yes Admission Attestation Admission request attestation: Discussed case with [Dr Ayala] from Hospitalist service regarding admission. Discussed patients ED course, exam findings, labs, and radiology results. The Hospitalist [agrees] to accept the patient for admission. Disposition Plan Disposition Plan: Admit Discharge Plan Plan Patient Disposition: Admit Acute Care w/in Hospital Discharge Disposition comment: Stable Prescriptions/Referrals Prescriptions/Med Rec: No Action montelukast 10 mg Tablet 10 mg PO QPM loratadine 10 mg Tablet 10 mg PO QDAY lisinopril 5 mg tablet 5 mg PO QDAY Patient Comments: TAKE ONE TABLET BY MOUTH EVERY DAY FOR BLOOD PRESSURE atorvastatin 20 mg tablet 20 mg PO DAILY Patient Comments: TAKE ONE TABLET BY MOUTH EVERY DAY FOR CHOLESTEROL ipratropium bromide 42 mcg (0.06 %) spray,non-aerosol 2 spray INTRANASAL TID Patient Comments: INSTILL TWO SPARY IN EACH NOSTRIL THREE TIMES DAILY Referrals: No Primary/Family,Physician [Referring Provider] - In 1 week Problem List Clinical Impression: Symptomatic anemia, Acute upper gastrointestinal bleeding Patient/Caregiver Discharge Instructions Print Language: Faroese Stand Alone Forms: Amanda Award Info., Patient Portal Info Letter
--- NOTE | 2025-03-06 20:38 | PD.RESHP ---
Documentation for date of: 03/06/25 [facility] History of Present Illness History of present illness: Casi is a 64 y/o female with PMHx of Diverticulosis, HTN, seasonal allergies, HLD and previous GI bleed who comes in for evaluation for evaluation of dark tarry stools described as black, onset 3 days ago, with associated abdominal pain, diarrhea and weakness, however no syncope. Pt reports she had an appointment today with her PCP and he had told her that her hemoglobin 7.2 and to go to the ER for a blood transfusion. She says that she was recently admitted in the hospital a couple of months ago for similar kind of symptoms. She says that she sometimes takes aspirin for body aches that she may have and she last took it this morning. She also says she takes prednisone sometimes and the last time she has taken it was about a week ago. She denies any alcohol history and denies hemoptysis and throwing up blood. She also denies any trauma. She is not having any abdominal pain at this time. Denies any recent travel or sick contacts. Does not take iron supplements. ED Course: Pt came in to the ER afebrile, with a blood pressure of 92/56, saturating 95% on room air, respiratory 18, pulse rate 83. She was worked up was found to have a white count of 10, hemoglobin 8.4, MCV 80, sodium 142, potassium 3.6, chloride 108, bicarb 24, creatinine 1.1, calcium 9.3, liver enzymes within normal limits, troponin negative x 1. EKG normal sinus rhythm with a QTc of 448. FOBT was positive. Patient was given Protonix 80 mg IV and 2 PRBCs for transfusion was initiated. medicine was consulted and patient was made to the floors. PMHx: As above Surgeries: Patient is unable to give surgical history at this time Meds: Inhalers, loratadine, montelukast, lisinopril, Lipitor Allergies: No known allergies Family Hx: Cannot give family history at this time, however says there is no family history of diabetes, heart attacks or strokes as well as GI bleeds Social Hx: Denies any alcohol use, has never smoked, denies any other history of oral IV drug use. Lives in [place] with her , has multiple kids. 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 Review of Systems Review of Systems Narrative Review of Systems: 12 point ROS reviewed and is otherwise negative unless stated directly in the HPI Exam Vital Signs Temp Pulse Resp BP Pulse Ox O2 Del Method 98.3 F 86 17 98/64 98 Room Air 03/06/25 19:58 03/06/25 19:58 03/06/25 19:58 03/06/25 19:58 03/06/25 19:58 03/06/25 19:58 Narrative Exam General: AAOx3, NAD, comfortable, wearing glasses HEENT: Moist mucous membranes, conjunctiva clear, EOMI, PERRLA, Cardiovascular: S1, S2, radial pulses +2 bilat, RRR Pulmonary: CTAB bilat no cough, no wheezing GI: No tenderness to light or deep palpitation, no guarding, rigidity, rebound tenderness or distension Skin: No obvious deformities, petechiae or purpura Extremities: No presence of trace or pitting edema in lower extremities bilaterally, dorsalis pedis pulses +2 bilaterally Neuro: AAOx3, no focal motor or sensory deficits in the UE or LE bilat Psych: Good judgement, thought and behavior Results: Labs 03/08/25 04:25 03/08/25 04:25 Labs: Short CBC 03/06/25 Range/Units 19:10 WBC 10.2 (3.6-11.0) Thou/mm3 Hgb 8.4 L (12.0-16.0) g/dL Hct 28.4 L (36.0-46.0) % Plt Count 275 (140-440) Thou/mm3 BMP 03/06/25 19:10 Sodium 142 Potassium 3.6 Chloride 108 H Carbon Dioxide 24.0 BUN 13 Creatinine 1.1 Glucose 106 Calcium 9.3 Cardiac Enzymes 03/06/25 Range/Units 19:10 Troponin I < 0.002 (0.0-0.045) ng/mL Liver Function 03/06/25 Range/Units 19:10 Total Bilirubin 0.3 (0.3-1.2) mg/dL AST 21 (0-34) U/L ALT 13 (10-49) U/L Alkaline Phosphatase 68 (46-116) U/L Albumin 4.4 (3.4-4.8) gm/dL Quality Measures Quality Measures VTE prophylaxis Medications Home Medications and Allergies Home Medications ?Medication ?Instructions ?Recorded ?Confirmed ?Type montelukast 10 mg tablet 10 mg PO DAILY 10/10/18 03/06/25 History lisinopril 5 mg tablet 5 mg PO QDAY 04/11/21 03/06/25 History Held on 03/08/25. Instructions: Resume on 03/22/25. Till u see your PCP atorvastatin 20 mg tablet 20 mg PO DAILY 12/17/24 03/06/25 History ipratropium bromide 42 mcg (0.06 2 spray intranasal TID 12/17/24 03/06/25 History %) nasal spray albuterol sulfate 90 mcg/actuation 2 inh inhalation PRN PRN shortness 03/06/25 03/06/25 History aerosol inhaler (Ventolin HFA) of breath or wheezing azelastine 137 mcg (0.1 %) nasal 2 spray intranasal Q12H 03/07/25 03/07/25 History spray cetirizine 10 mg tablet 10 mg PO DAILY 03/07/25 03/07/25 History diphenhydramine HCl 25 mg capsule 25 mg PO DAILY PRN allergy symptoms 03/07/25 03/07/25 History (Allergy (diphenhydramine)) olopatadine 0.2 % eye drops 1 drp ophthalmic (eye) DAILY 03/07/25 03/07/25 History Allergies Allergy/AdvReac Type Severity Reaction Status Date / Time No Known Allergies Allergy Verified 03/06/25 18:05 Visit Medications Acetaminophen (Acetaminophen 325 Mg Tablet) 650 mg PO Q6H PRN PRN Reason: Fever >100 or pain 1-3 Stop: 04/05/25 20:30 Hydrocodone Bitart/Acetaminophen (Hydrocodone/Apap 5/325 Tablet) 1 tab PO Q4HR PRN PRN Reason: PAIN SCALE 4-6 (Moderate Stop: 03/11/25 20:30 Albuterol/Ipratropium (Albuterol/Ipratropium (Duoneb) Rt Sirisha 3 Ml Nebu) 3 ml INH Q6HRRT PRN PRN Reason: SHORTNESS OF BREATH OR WHEEZE Stop: 04/05/25 20:30 Atorvastatin Calcium (Atorvastatin Calcium 10 Mg Tablet) 20 mg PO HS DAYNE Stop: 04/05/25 20:59 Docusate Sodium (Docusate Sod 100 Mg Capsule) 100 mg PO QDAY PRN; Protocol PRN Reason: CONSTIPATION Stop: 04/05/25 20:30 Loratadine (Loratadine 10 Mg Tablet) 10 mg PO QDAY PRN PRN Reason: allergies Stop: 04/06/25 08:59 Montelukast Sodium (Montelukast Sodium 10 Mg Tablet) 10 mg PO HS DAYNE Stop: 04/05/25 20:59 Ondansetron HCl (Ondansetron Inj 2 Mg/Ml Inj 2 Ml) 4 mg IVP Q6H PRN; Protocol PRN Reason: NAUSEA OR VOMITING Stop: 04/05/25 20:30 Pantoprazole Sodium (Pantoprazole Inj 40 Mg Vial) 40 mg IVP BID DAYNE Stop: 04/06/25 08:59 Discontinued Medications Pantoprazole Sodium (Pantoprazole Inj 40 Mg Vial) 80 mg IVP X1 ONE Stop: 03/06/25 20:05 Assessment & Plan Plan Assessment: Casi is a 64 y/o female with PMHx of Diverticulosis, HTN, seasonal allergies, HLD and previous GI bleed who is currently admitted for GI bleed. #GI bleed #Acute blood loss anemia #Symptomatic anemia DDx: GI Bleed, Cancer, chronic anemia, medication induced FOBT: Positive NSAID use: Pt reports that she uses aspirin as needed for pain. She denies having any cardiac history however confirms that she does take aspirin as needed for pain Blood thinner use: None Patient does have history of diverticulosis, severe seen on last colonoscopy. Endoscopy also shows gastric erosions as well. Patient could be having upper GI bleed due to dark-colored stools, however no history of varices. Less likely patient is having diverticular bleed at this time as this is likely medication related Plan: ? Trend CBC ? F/u Iron studies panel ? F/u Peripheral blood smear ? Transfusion protocol hemoglobin below 7 ? Avoiding any NSAIDs ? SCDs ? Protonix 40 mg IV BID ? GI consulted, appreciate recommendations ? NPO at midnight for Endoscopy/Colonoscopy #Hx of Hypertension #Hx of Hyperlipidemia Chronic Plan: ? Holding blood pressure medicines as blood pressures soft at this point ? Resumed home Lipitor 20 mg at bedtime #Health Maintenance Disposition: Telemetry DVT prophylaxis: SCDs GI prophylaxis: Protonix 40 mg IV twice daily Diet: NPO at midnight CODE STATUS: Full Patient seen and care discussed with my attending physician, Dr. Mehrdad Ayala, PGY-2 This document was transcribed using voice recognition technology. Minor inaccuracies may be present. Attending Provider Attestation/Addendum After examination of the patient and review of the clinical data I feel that this patient needs admission to the hospital for further treatment/evaluation. Plan of care discussed with patient and is in agreement. I Mandi Cronin MD, attest that I was physically present for cazares portions of evaluation, and examined patient, labs and imagings and plan of care were discussed with IM residents team, and I agree with the findings and plans documented above.
[2025-03-06 21:10] LABS: Immature Reticulocyte Fraction 31.8 % (3.0-15.9); Path Review Blood Smear Sent to Pathologist; Reticulocyte % (Auto) 4.0 % (0.5-1.5); Reticulocyte Absolute Auto 138.2 Biln/L (25.0-75.0); Reticulocyte Hgb Content 22.7 pg (28.0-35.0)
[2025-03-06] MEDS: ATORVASTATIN CALCIUM 10 MG TABLET 20 MG PO (21:40)
[2025-03-06 22:17] LABS: Ferritin 8 ng/mL (7.3-270.7); Percent Iron Saturation 84 % (20-55); Total Iron Binding Capacity 384 mcg/dL (250-425); Unsaturated Iron Binding 61 (225-295)
[2025-03-06 22:33] LABS: Iron 323 mcg/dL (50-170)
[2025-03-06] MEDS: MONTELUKAST SODIUM 10 MG TABLET PO (23:22)
[2025-03-07] VITALS (16 sets, daily range): BP systolic 98–144; BP diastolic 60–84; PULSE 69–97; RESP 12–25; TEMP 36–36.9; O2SAT 92–100; BMI 22.5
[2025-03-07 02:29] LABS: Hematocrit 27.4 % (36.0-46.0)
[2025-03-07 02:33] LABS: Hemoglobin 8.5 g/dL (12.0-16.0)
[2025-03-07 06:49] LABS: Basophils # (Auto) 0.0 Thou/mm3 (0.0-0.2); Basophils % (Auto) 1 % (0-2.5); Eosinophils # (Auto) 0.3 Thou/mm3 (0.0-0.5); Eosinophils % (Auto) 6 % (0-10); Hematocrit 27.9 % (36.0-46.0); Immature Granulocytes Auto 0.02 Thou/mm3 (0.00-0.00); Lymphocytes # (Auto) 1.0 Thou/mm3 (1.0-4.8); Lymphocytes % (Auto) 21 % (10-50); Mean Corpuscular HGB Conc 31.5 g/dl (31.0-37.0); Mean Corpuscular Hemoglobin 25.4 pg (25.0-35.0); Mean Corpuscular Volume 80 fL (80-100); Monocytes # (Auto) 0.4 Thou/mm3 (0.0-0.8); Monocytes % (Auto) 9 % (0-12); Neutrophils # (Auto) 2.8 Thou/mm3 (1.8-7.7); Neutrophils % (Auto) 63 % (37-80); Nucleated Red Blood Cell # 0.00 Thou/mm3 (0.00-0.00); Nucleated Red Blood Cell % 0 /100 WBC (0); Platelet Count 263 Thou/mm3 (140-440); RDW Standard Deviation 61.1 fL (36.4-46.3); Red Blood Count 3.47 Miln/mm3 (4.00-5.20); White Blood Count 4.4 Thou/mm3 (3.6-11.0)
[2025-03-07 06:52] LABS: Hemoglobin 8.8 g/dL (12.0-16.0)
[2025-03-07 06:58] LABS: INR 1.0 (0.9-1.3); Partial Thromboplastin Time 30.1 Seconds (22.0-36.0); Prothrombin Time 10.6 Seconds (9.0-12.2)
[2025-03-07] MEDS: ALBUTEROL/IPRATROPIUM (Duoneb) RT SOL 3 ML NEBU INH (07:08)
[2025-03-07 07:25] LABS: Alanine Aminotransferase 11 U/L (10-49); Albumin, Serum 3.8 gm/dL (3.4-4.8); Albumin/Globulin Ratio 2.7 (1.2-2.2); Alkaline Phosphatase 56 U/L (46-116); Anion Gap 8 (7-16); Aspartate Amino Transferase 17 U/L (0-34); BUN/Creatinine Ratio 19 Ratio (12-20); Bilirubin,Total 0.9 mg/dL (0.3-1.2); Blood Urea Nitrogen 13 mg/dL (9-23); Calcium 8.7 mg/dL (8.3-10.6); Calcium (Corrected) 8.9 mg/dL (8.5-10.1); Carbon Dioxide 25.7 mMol/L (20.0-31.0); Cardiac Risk Estimate 2.4 RATIO (3.7-5.6); Chloride 110 mMol/L (98-107); Cholesterol 148 mg/dL (132-200); Creatinine (Component) 0.7 mg/dL (0.6-1.3); Estimated Creatinine Clearance 67.2 mL/min (>60); Globulin 1.4 gm/dL (2.3-3.5); Glucose 87 mg/dL (74-106); HDL Cholesterol 62 mg/dL (40-60); LDL Cholesterol,Calculated 64 mg/dL (0-130); Magnesium 2.0 mg/dL (1.6-2.6); Osmolality,Calculated 285 (275-295); Phosphorous 3.9 mg/dL (2.4-5.1); Potassium 3.7 mMol/L (3.4-5.1); Sodium 144 mMol/L (136-145); Thyroid Stimulating Hormone 0.49 uIU/mL (0.55-4.78); Total Protein 5.2 gm/dL (5.7-8.2); Triglycerides 110 mg/dL (30-150); eGFR > 60 See Note
[2025-03-07 07:34] LABS: Glucose Estimated Average 111 mg/dL (80-131); Hemoglobin A1C 5.5 % Hgb (4.8-6.0)
--- NOTE | 2025-03-07 10:44 | PC.SS ---
Sand Bobber (GUDELIA) Germaine met with the patient at the bedside to complete an initial assessment and discuss a discharge plan. Patient is alert and oriented to person, place, time, and situation, and provided verbal consent to participate in the assessment. Patient's past medical history includes a significant history of hypertension, COPD, and was sent to us by PCP for possible blood transfusion. Patient is Casi Flanagan, 64 y/o Yakut-speaking female residing with her at [address] [place], [place] [id number]. Patient designated her , Sarthak Blue, , as his surrogate medical decision maker. Patient is employed. Patient reports baseline is independent with no DME. Patient's PCP is Dr. Jarrod Mixon. Patient's discharge plan is home independent with private transportation provided by . Surrogate medical decision maker: , Sarthak Blue, Discharge plan: Home
[2025-03-07 13:53] LABS: Collection Type, Urine Clean Catch
[2025-03-07 14:11] LABS: Bilirubin,Urine Negative (Negative); Blood,Urine Negative (Negative); Clarity,Urine Clear (Clear/Hazy); Color,Urine Lt-Yellow (Lt Yel-Yel); Glucose, Urine Negative (Negative); Hyaline Casts,Urine < 1 /hpf (0-1); Ketones,Urine Negative (Negative); Leukocyte Esterase,Urine Positive (Negative); Nitrite,Urine Negative (Negative); PH,Urine 5.5 (5.0-7.0); Protein,Urine Negative (Neg - Trace); RBC,Urine 1 /hpf (0-3); Specific Gravity,Urine 1.016 (1.001-1.035); Squamous Epithelial Cell,Urine < 1 /hpf (0-5); Urobilinogen,Urine Negative mg/dL (0.0-1.0); WBC,Urine 5 /hpf (0-5)
--- NOTE | 2025-03-07 14:14 | ESPR_ITS ---
<Statement entered by Chapis Haynes MD - 03/19/25 07:58> I reviewed above note and agree with findings and plans. I have also personally examined the patient with medicine team and went over assessment and plan with medical team including post graduate internship and resident physician. Documentation for date of: 03/07/25 Subjective Subjective Interval history: Patient is seen and examined at bedside. Admitted overnight in view of suspected possible upper GI bleed as the patient complained of darkish discoloration of stools. Patient endorsed that she is taking aspirin 81 mg, ibuprofen every day for her knee joint pain and is also taking iron supplements, ferrous sulfate 325 mg every day Labs done this morning showed stable hemoglobin and iron studies showed iron of 323, iron saturation 94%, ferritin 8. Consulted securities teller, Dr. Meyer, recommended UGI Endoscopy today Exam Vital Signs Temp Pulse Resp BP Pulse Ox O2 Del Method 96.8 F 80 18 98/74 96 Room Air 03/07/25 12:00 03/07/25 12:00 03/07/25 12:00 03/07/25 12:00 03/07/25 12:00 03/07/25 12:00 Narrative Exam General: Awake. HEENT: Normocephalic, atraumatic, mucous membranes moist. Heart: Regular rate and rhythm, no murmurs. Lungs: Clear to auscultation with no wheezing or crackles. Abdomen: Soft, nondistended, nontender, positive bowel sounds. ?No guarding or rebound tenderness. Neurologic: Alert and oriented x3, no gross neurological deficit, and patient able to move all 4 extremities. Extremities: No edema. Skin: No rash or ecchymoses. Objective Labs 03/07/25 06:15 03/07/25 06:15 Labs: Laboratory Results - last 24 hr 03/06/25 03/06/25 03/07/25 13:45 19:10 02:23 WBC 10.2 RBC 3.54 L Hgb 8.4 L 8.5 L Hct 28.4 L 27.4 L MCV 80 MCH 23.7 L MCHC 29.6 L RDW Std Deviation 62.7 H Plt Count 275 Neut % (Auto) 84 H Lymph % (Auto) 9 L [place] % (Auto) 5 Eos % (Auto) 1 Baso % (Auto) 0 Neut # (Auto) 8.6 H Lymph # (Auto) 0.9 L [place] # (Auto) 0.5 Eos # (Auto) 0.1 Baso # (Auto) 0.0 Immature Gran # (Auto) 0.07 H Absolute Nucleated RBC 0.00 Immature Gran % 1 H Nucleated RBC % 0 Smear Path Review Sent to Pathologist Retic Count (auto) 4.0 H Absolute Retic 138.2 H Immature Retic Fraction 31.8 H Retic Hgb Content CHr 22.7 L PT 10.3 INR 1.0 APTT 22.2 Sodium 142 Potassium 3.6 Chloride 108 H Carbon Dioxide 24.0 Anion Gap 10 BUN 13 Creatinine 1.1 Estim Creat Clear Calc 42.7 L eGFR 56 L BUN/Creatinine Ratio [address] Glu mg/dL Hemoglobin A1c Calculated Osmolality 283 Calcium 9.3 Corrected Calcium 9.3 Phosphorus Magnesium Iron 323 H* TIBC 384 Iron Saturation 84 H Unsat Iron Binding 61 L Ferritin 8 Total Bilirubin 0.3 AST 21 ALT 13 Alkaline Phosphatase 68 Troponin I < 0.002 Total Protein 6.3 Albumin 4.4 Globulin 1.9 L Albumin/Globulin Ratio 2.3 H Triglycerides Cholesterol LDL Cholesterol, Calc HDL Cholesterol Cholesterol/HDL Ratio TSH Ur Collection Type Clean Catch Urine Color Lt-Yellow Urine Clarity Clear Urine pH 5.5 Ur Specific [place] 1.016 Urine Protein Negative Urine Glucose (UA) Negative Urine Ketones Negative Urine Blood Negative Urine Nitrite Negative Urine Bilirubin Negative Urine Urobilinogen (Auto) Negative Ur Leukocyte Esterase Positive Urine RBC 1 Urine WBC 5 Ur Squamous Epith Cells < 1 Urine Bacteria None Hyaline Casts < 1 Blood Type O Positive Antibody Screen NEGATIVE Crossmatch See Detail Blood Bank Wristband ID Yes 03/07/25 06:15 WBC 4.4 D RBC 3.47 L Hgb 8.8 L Hct 27.9 L MCV 80 MCH 25.4 MCHC 31.5 RDW Std Deviation 61.1 H Plt Count 263 Neut % (Auto) 63 Lymph % (Auto) 21 [place] % (Auto) 9 Eos % (Auto) 6 Baso % (Auto) 1 Neut # (Auto) 2.8 Lymph # (Auto) 1.0 [place] # (Auto) 0.4 Eos # (Auto) 0.3 Baso # (Auto) 0.0 Immature Gran # (Auto) 0.02 H Absolute Nucleated RBC 0.00 Immature Gran % 1 H Nucleated RBC % 0 Smear Path Review Retic Count (auto) Absolute Retic Immature Retic Fraction Retic Hgb Content CHr PT 10.6 INR 1.0 APTT 30.1 Sodium 144 Potassium 3.7 Chloride 110 H Carbon Dioxide 25.7 Anion Gap 8 BUN 13 Creatinine 0.7 Estim Creat Clear Calc 67.2 eGFR > 60 BUN/Creatinine Ratio [address] Glu mg/dL 111 Hemoglobin A1c 5.5 Calculated Osmolality 285 Calcium 8.7 Corrected Calcium 8.9 Phosphorus 3.9 Magnesium 2.0 Iron TIBC Iron Saturation Unsat Iron Binding Ferritin Total Bilirubin 0.9 D AST 17 ALT 11 Alkaline Phosphatase 56 Troponin I Total Protein 5.2 L Albumin 3.8 D Globulin 1.4 L Albumin/Globulin Ratio 2.7 H Triglycerides 110 Cholesterol 148 LDL Cholesterol, Calc 64 HDL Cholesterol 62 H Cholesterol/HDL Ratio 2.4 L TSH 0.49 L Ur Collection Type Urine Color Urine Clarity Urine pH Ur Specific [place] Urine Protein Urine Glucose (UA) Urine Ketones Urine Blood Urine Nitrite Urine Bilirubin Urine Urobilinogen (Auto) Ur Leukocyte Esterase Urine RBC Urine WBC Ur Squamous Epith Cells Urine Bacteria Hyaline Casts Blood Type Antibody Screen Crossmatch Blood Bank Wristband ID Quality Measures Quality Measures none Assessment & Plan Assessment Current Active Medications: Generic Name Dose Route Start Last Admin Trade Name Freq PRN Reason Stop Dose Admin Acetaminophen 650 mg 03/06/25 20:31 Acetaminophen 325 Mg Tablet PO 04/05/25 20:30 Q6H PRN Fever >100 or pain 1-3 Hydrocodone Bitart/Acetaminophen 1 tab 03/06/25 20:31 Hydrocodone/Apap 5/325 Tablet PO 03/11/25 20:30 Q4HR PRN PAIN SCALE 4-6 (Moderate Albuterol/Ipratropium 3 ml 03/06/25 20:31 03/07/25 07:08 Albuterol/Ipratropium (Duoneb) Rt Sirisha 3 Ml Nebu INH 04/05/25 20:30 3 ml Q6HRRT PRN Administration SHORTNESS OF BREATH OR WHEEZE Atorvastatin Calcium 20 mg 03/06/25 21:00 03/06/25 21:40 Atorvastatin Calcium 10 Mg Tablet PO 04/05/25 20:59 20 mg HS DAYNE Administration Docusate Sodium 100 mg 03/06/25 20:31 Docusate Sod 100 Mg Capsule PO 04/05/25 20:30 QDAY PRN CONSTIPATION Protocol Loratadine 10 mg 03/06/25 20:31 Loratadine 10 Mg Tablet PO 04/06/25 08:59 QDAY PRN allergies Montelukast Sodium 10 mg 03/06/25 21:00 03/06/25 23:22 Montelukast Sodium 10 Mg Tablet PO 04/05/25 20:59 10 mg HS DAYNE Administration Ondansetron HCl 4 mg 03/06/25 20:31 Ondansetron Inj 2 Mg/Ml Inj 2 Ml IVP 04/05/25 20:30 Q6H PRN NAUSEA OR VOMITING Protocol Pantoprazole Sodium 40 mg 03/07/25 09:00 03/07/25 08:31 Pantoprazole Inj 40 Mg Vial IVP 04/06/25 08:59 40 mg BID DAYNE Administration Plan Casi is a 64 y/o female with PMHx of Diverticulosis, HTN, seasonal allergies, HLD and previous GI bleed who is currently admitted for GI bleed. #GI bleed #Acute blood loss anemia #Symptomatic anemia DDx: GI Bleed, Cancer, chronic anemia, medication induced FOBT: Positive NSAID use: Pt reports that she uses aspirin and ibuprofen everyday for knee pain. She denies having any cardiac history. Patient does have history of diverticulosis, severe seen on last colonoscopy. Endoscopy also shows gastric erosions as well. Patient could be having upper GI bleed due to dark-colored stools, however no history of varices - But on Ferrous sulfate 325mg once everyday Less likely patient is having diverticular bleed at this time as this is likely medication related Plan: ? Will monitor CBC ? Transfusion protocol hemoglobin below 7 ? Avoiding any NSAIDs ? SCDs ? Protonix 40 mg IV BID ? GI consulted, recommended UGI Endoscopy - Kept NPO as of now #Hypertension #Hyperlipidemia Chronic Plan: ? Holding blood pressure medicines as blood pressures soft at this point ? Resumed home Lipitor 20 mg at bedtime #Health Maintenance Disposition: Telemetry DVT prophylaxis: SCDs GI prophylaxis: Protonix 40 mg IV twice daily Diet: NPO CODE STATUS: Full Patient plan of care was discussed with the attending physician, Dr. Ivy Goldberg, PGY2
[2025-03-07] MEDS: SODIUM CHLORIDE 0.9% 500 ML 500 ML 20 ML IV (16:19)
--- NOTE | 2025-03-07 17:39 | PD.IMCONS ---
HPI Data of Consult Requesting Physician: Mandi Cronin MD Primary Care Provider: Jarrod Mixon PA-C Consult Narrative Reason for consult: Melena FOBT positive History of present illness: 64 years old female presented the emergency room with melanotic stools She had called her PCP with whom she had an appointment and he told her that her hemoglobin 7.2 she should go to the emergency room HIDE INSPECTOR/PA did a rectal exam which was grossly melanotic stools and grossly Hemoccult positive hemoglobin baseline of 8.5 which is almost the same she had before Nonetheless patient was admitted I have seen this patient before On 12/18/2024 patient underwent upper endoscopy which showed erosive gastritis 4 cm hiatal hernia and duodenitis On 12/19/2024 colonoscopy showed severe diverticulosis involving sigmoid and descending colon Patient does take ibuprofen cc:: cc: Mandi Cronin MD Review of Systems Review of Systems Systems Reviewed: All systems reviewed, normal except as documented Past Medical History Surgical History OTHER SURGICAL HX: As in the history of present illness COPD Essential hypertension Meds Home Medications and Allergies Home Medications ?Medication ?Instructions ?Recorded ?Confirmed ?Type montelukast 10 mg tablet 10 mg PO DAILY 10/10/18 03/06/25 History lisinopril 5 mg tablet 5 mg PO QDAY 04/11/21 03/06/25 History atorvastatin 20 mg tablet 20 mg PO DAILY 12/17/24 03/06/25 History ipratropium bromide 42 mcg (0.06 2 spray intranasal TID 12/17/24 03/06/25 History %) nasal spray albuterol sulfate 90 mcg/actuation 2 inh inhalation PRN PRN shortness 03/06/25 03/06/25 History aerosol inhaler (Ventolin HFA) of breath or wheezing azelastine 137 mcg (0.1 %) nasal 2 spray intranasal Q12H 03/07/25 03/07/25 History spray cetirizine 10 mg tablet 10 mg PO DAILY 03/07/25 03/07/25 History diphenhydramine HCl 25 mg capsule 25 mg PO DAILY PRN allergy symptoms 03/07/25 03/07/25 History (Allergy (diphenhydramine)) ferrous sulfate 325 mg (65 mg 325 mg PO DAILY 03/07/25 03/07/25 History iron) tablet,delayed release ibuprofen 200 mg capsule 200 mg PO DAILY PRN pain 03/07/25 03/07/25 History olopatadine 0.2 % eye drops 1 drp ophthalmic (eye) DAILY 03/07/25 03/07/25 History Allergies Allergy/AdvReac Type Severity Reaction Status Date / Time No Known Allergies Allergy Verified 03/06/25 18:05 Exam Vital Signs Temp Pulse Resp BP Pulse Ox O2 Del Method O2 Flow Rate 97.1 F 84 17 131/80 H 94 L Room Air 3 03/07/25 16:59 03/07/25 16:59 03/07/25 16:59 03/07/25 16:59 03/07/25 16:59 03/07/25 16:59 03/07/25 16:25 Constitutional Comments: Alert oriented Routine Respiratory Exam Comments: Normal to auscultation Routine Abdominal Exam Comments: Soft nontender Results Labs 03/07/25 06:15 03/07/25 06:15 Labs: Short CBC 03/06/25 03/07/25 03/07/25 Range/Units 19:10 02:23 06:15 WBC 10.2 4.4 D (3.6-11.0) Thou/mm3 Hgb 8.4 L 8.5 L 8.8 L (12.0-16.0) g/dL Hct 28.4 L 27.4 L 27.9 L (36.0-46.0) % Plt Count 275 263 (140-440) Thou/mm3 BMP 03/06/25 03/07/25 19:10 06:15 Sodium 142 144 Potassium 3.6 3.7 Chloride 108 H 110 H Carbon Dioxide 24.0 25.7 BUN 13 13 Creatinine 1.1 0.7 Glucose 106 87 Calcium 9.3 8.7 Cardiac Enzymes 03/06/25 Range/Units 19:10 Troponin I < 0.002 (0.0-0.045) ng/mL Liver Function 03/06/25 03/07/25 Range/Units 19:10 06:15 Total Bilirubin 0.3 0.9 D (0.3-1.2) mg/dL AST 21 17 (0-34) U/L ALT 13 11 (10-49) U/L Alkaline Phosphatase 68 56 (46-116) U/L Albumin 4.4 3.8 D (3.4-4.8) gm/dL Urine 03/06/25 Range/Units 13:45 Urine Color Lt-Yellow (Lt Yel-Yel) Urine Clarity Clear (Clear/Hazy) Urine pH 5.5 (5.0-7.0) Ur Specific [place] 1.016 (1.001-1.035) Urine Protein Negative (Neg - Trace) Urine Glucose (UA) Negative (Negative) Assessment and Plan Additional Assessment & Plan Additional Plan: # Melena # Hemoccult positive stool Plan Consent obtained for fiberoptic esophagogastroduodenoscopy with possible biopsies possible therapeutic intervention under intravenous moderate sedation Further evaluation of the above Continue IV Protonix Thank you for the opportunity to participate in the care of this patient
--- NOTE | 2025-03-07 17:43 | ESPR_ITS ---
Documentation for date of: 03/07/25 Subjective Subjective Interval history: Patient EGD shows only duodenitis and gastritis Hemoglobin hematocrit stable Patient can be discharged home today with recommendation avoid NSAIDs Continue PPI Follow-up with the primary care physician no GI follow-up needed Exam Vital Signs Temp Pulse Resp BP Pulse Ox O2 Del Method O2 Flow Rate 97.1 F 84 17 131/80 H 94 L Room Air 3 03/07/25 16:59 03/07/25 16:59 03/07/25 16:59 03/07/25 16:59 03/07/25 16:59 03/07/25 16:59 03/07/25 16:25 Objective Labs 03/07/25 06:15 03/07/25 06:15 Labs: Laboratory Results - last 24 hr 03/06/25 03/06/25 03/07/25 13:45 19:10 02:23 WBC 10.2 RBC 3.54 L Hgb 8.4 L 8.5 L Hct 28.4 L 27.4 L MCV 80 MCH 23.7 L MCHC 29.6 L RDW Std Deviation 62.7 H Plt Count 275 Neut % (Auto) 84 H Lymph % (Auto) 9 L [place] % (Auto) 5 Eos % (Auto) 1 Baso % (Auto) 0 Neut # (Auto) 8.6 H Lymph # (Auto) 0.9 L [place] # (Auto) 0.5 Eos # (Auto) 0.1 Baso # (Auto) 0.0 Immature Gran # (Auto) 0.07 H Absolute Nucleated RBC 0.00 Immature Gran % 1 H Nucleated RBC % 0 Smear Path Review Sent to Pathologist Retic Count (auto) 4.0 H Absolute Retic 138.2 H Immature Retic Fraction 31.8 H Retic Hgb Content CHr 22.7 L PT 10.3 INR 1.0 APTT 22.2 Sodium 142 Potassium 3.6 Chloride 108 H Carbon Dioxide 24.0 Anion Gap 10 BUN 13 Creatinine 1.1 Estim Creat Clear Calc 42.7 L eGFR 56 L BUN/Creatinine Ratio [address] Glu mg/dL Hemoglobin A1c Calculated Osmolality 283 Calcium 9.3 Corrected Calcium 9.3 Phosphorus Magnesium Iron 323 H* TIBC 384 Iron Saturation 84 H Unsat Iron Binding 61 L Ferritin 8 Total Bilirubin 0.3 AST 21 ALT 13 Alkaline Phosphatase 68 Troponin I < 0.002 Total Protein 6.3 Albumin 4.4 Globulin 1.9 L Albumin/Globulin Ratio 2.3 H Triglycerides Cholesterol LDL Cholesterol, Calc HDL Cholesterol Cholesterol/HDL Ratio TSH Ur Collection Type Clean Catch Urine Color Lt-Yellow Urine Clarity Clear Urine pH 5.5 Ur Specific [place] 1.016 Urine Protein Negative Urine Glucose (UA) Negative Urine Ketones Negative Urine Blood Negative Urine Nitrite Negative Urine Bilirubin Negative Urine Urobilinogen (Auto) Negative Ur Leukocyte Esterase Positive Urine RBC 1 Urine WBC 5 Ur Squamous Epith Cells < 1 Urine Bacteria None Hyaline Casts < 1 Blood Type O Positive Antibody Screen NEGATIVE Crossmatch See Detail Blood Bank Wristband ID Yes 03/07/25 06:15 WBC 4.4 D RBC 3.47 L Hgb 8.8 L Hct 27.9 L MCV 80 MCH 25.4 MCHC 31.5 RDW Std Deviation 61.1 H Plt Count 263 Neut % (Auto) 63 Lymph % (Auto) 21 [place] % (Auto) 9 Eos % (Auto) 6 Baso % (Auto) 1 Neut # (Auto) 2.8 Lymph # (Auto) 1.0 [place] # (Auto) 0.4 Eos # (Auto) 0.3 Baso # (Auto) 0.0 Immature Gran # (Auto) 0.02 H Absolute Nucleated RBC 0.00 Immature Gran % 1 H Nucleated RBC % 0 Smear Path Review Retic Count (auto) Absolute Retic Immature Retic Fraction Retic Hgb Content CHr PT 10.6 INR 1.0 APTT 30.1 Sodium 144 Potassium 3.7 Chloride 110 H Carbon Dioxide 25.7 Anion Gap 8 BUN 13 Creatinine 0.7 Estim Creat Clear Calc 67.2 eGFR > 60 BUN/Creatinine Ratio [address] Glu mg/dL 111 Hemoglobin A1c 5.5 Calculated Osmolality 285 Calcium 8.7 Corrected Calcium 8.9 Phosphorus 3.9 Magnesium 2.0 Iron TIBC Iron Saturation Unsat Iron Binding Ferritin Total Bilirubin 0.9 D AST 17 ALT 11 Alkaline Phosphatase 56 Troponin I Total Protein 5.2 L Albumin 3.8 D Globulin 1.4 L Albumin/Globulin Ratio 2.7 H Triglycerides 110 Cholesterol 148 LDL Cholesterol, Calc 64 HDL Cholesterol 62 H Cholesterol/HDL Ratio 2.4 L TSH 0.49 L Ur Collection Type Urine Color Urine Clarity Urine pH Ur Specific [place] Urine Protein Urine Glucose (UA) Urine Ketones Urine Blood Urine Nitrite Urine Bilirubin Urine Urobilinogen (Auto) Ur Leukocyte Esterase Urine RBC Urine WBC Ur Squamous Epith Cells Urine Bacteria Hyaline Casts Blood Type Antibody Screen Crossmatch Blood Bank Wristband ID Assessment & Plan A&P Narrative # Melena # Hemoccult positive stool Plan Consent obtained for fiberoptic esophagogastroduodenoscopy with possible biopsies possible therapeutic intervention under intravenous moderate sedation Further evaluation of the above Continue IV Protonix Thank you for the opportunity to participate in the care of this patient Time Spent With Patient Time: Total time spent is greater than 50% in coordination of care (as documented) at patient's floor/unit and/or counseling patient:
[2025-03-07] MEDS: MONTELUKAST SODIUM 10 MG TABLET PO (20:56)
[2025-03-07] MEDS: ATORVASTATIN CALCIUM 10 MG TABLET 20 MG PO (20:56)
[2025-03-08] VITALS: BP 112/78; PULSE 75; PULSE 80; RESP 19; TEMP 37.1; O2SAT 95
[2025-03-08 04:00] VITALS: BP 109/76; BP 131/75; PULSE 78; PULSE 83; RESP 18; RESP 20; TEMP 36.1; TEMP 37.1; O2SAT 95; O2SAT 96
[2025-03-08 04:54] VITALS: BMI 23.3
[2025-03-08 05:13] LABS: Basophils # (Auto) 0.0 Thou/mm3 (0.0-0.2); Basophils % (Auto) 0 % (0-2.5); Eosinophils # (Auto) 0.2 Thou/mm3 (0.0-0.5); Eosinophils % (Auto) 5 % (0-10); Hematocrit 30.8 % (36.0-46.0); Hemoglobin 9.6 g/dL (12.0-16.0); Immature Granulocytes Auto 0.02 Thou/mm3 (0.00-0.00); Lymphocytes # (Auto) 1.1 Thou/mm3 (1.0-4.8); Lymphocytes % (Auto) 23 % (10-50); Mean Corpuscular HGB Conc 31.2 g/dl (31.0-37.0); Mean Corpuscular Hemoglobin 25.4 pg (25.0-35.0); Mean Corpuscular Volume 82 fL (80-100); Monocytes # (Auto) 0.4 Thou/mm3 (0.0-0.8); Monocytes % (Auto) 9 % (0-12); Neutrophils # (Auto) 3.1 Thou/mm3 (1.8-7.7); Neutrophils % (Auto) 63 % (37-80); Nucleated Red Blood Cell # 0.00 Thou/mm3 (0.00-0.00); Nucleated Red Blood Cell % 0 /100 WBC (0); Platelet Count 298 Thou/mm3 (140-440); RDW Standard Deviation 62.6 fL (36.4-46.3); Red Blood Count 3.78 Miln/mm3 (4.00-5.20); White Blood Count 4.9 Thou/mm3 (3.6-11.0)
[2025-03-08 05:58] LABS: Alanine Aminotransferase 12 U/L (10-49); Albumin, Serum 4.3 gm/dL (3.4-4.8); Albumin/Globulin Ratio 2.9 (1.2-2.2); Alkaline Phosphatase 62 U/L (46-116); Anion Gap 8 (7-16); Aspartate Amino Transferase 19 U/L (0-34); BUN/Creatinine Ratio 22 Ratio (12-20); Bilirubin,Total 0.6 mg/dL (0.3-1.2); Blood Urea Nitrogen 13 mg/dL (9-23); Calcium 9.1 mg/dL (8.3-10.6); Calcium (Corrected) 9.1 mg/dL (8.5-10.1); Carbon Dioxide 27.6 mMol/L (20.0-31.0); Chloride 108 mMol/L (98-107); Creatinine (Component) 0.6 mg/dL (0.6-1.3); Estimated Creatinine Clearance 78.4 mL/min (>60); Globulin 1.5 gm/dL (2.3-3.5); Glucose 84 mg/dL (74-106); Magnesium 2.1 mg/dL (1.6-2.6); Osmolality,Calculated 285 (275-295); Phosphorous 3.6 mg/dL (2.4-5.1); Potassium 3.8 mMol/L (3.4-5.1); Sodium 144 mMol/L (136-145); Total Protein 5.8 gm/dL (5.7-8.2); eGFR > 60 See Note
[2025-03-08 08:00] VITALS: BP 119/76; PULSE 74; RESP 17; TEMP 36.3; O2SAT 96
[2025-03-08 09:08] VITALS: PULSE 99
--- NOTE | 2025-03-08 10:24 | PC.NURSE ---
discharge orders received, discharge plan and packet is incomplete will notify MD and await further instructions
--- NOTE | 2025-03-08 11:00 | PC.NURSE ---
discharge instructions and packet given to pt., but unable to discharge pt. d/t waiting on her ride home.
[2025-03-08 12:00] VITALS: BP 126/77; PULSE 83; RESP 18; TEMP 36.1; O2SAT 97
--- NOTE | 2025-03-08 16:10 | ESDS_ITS ---
<Statement entered by Chapis Haynes MD - 03/23/25 15:17> I reviewed above note and agree with findings and plans. I have also personally examined the patient with medicine team and went over assessment and plan with medical team including pharmacy grad intern and resident physician. Planned Discharge Date 03/08/25 DS: Providers Provider Date of admission: 03/06/25 20:42 Primary care physician: Jarrod Mixon PA-C Admitting Provider: Mandi Cronin MD Attending Provider on Admission: Mandi Cronin MD Consults: 03/06/25 20:04 Consult to Gastroenterology Stat Comment: Upper GI bleed Consulting Provider: Gus Meyer Attending Provider on DC: Jan Goldberg MD Discharging Provider: Jan Goldberg MD DS: Diagnosis Problem List Completed Was Problem List Reviewed/Reconciled?: Yes Hospital Course Hospital Course Hospital course: 64 y/o female with PMHx of Diverticulosis, HTN, seasonal allergies, HLD and pre vious GI bleed presented to the hospital for evaluation of dark stools since 1 week and admitted for upper GI bleed workup. Reported that she is having stomach upset and is taking [id number] medication. Patient is recently admitted in 11/2024 for similar complaints for which he underwent EGD and colonoscopy which showed gastritis, erythematous duodenopathy and hemorrhoids, severe diverticulosis in the sigmoid colon and descending colon. Narrowing of the colon in association with the diverticular opening. Hospital course: Labs at the time of admission are stable. Labs at the time of admission are significant for WBC 10, hemoglobin 8.4, MCV 80. Patient reported that she is taking aspirin and ibuprofen every single day for knee pain along with iron supplements. Hemoglobin is stable. Likely darkish discoloration of stool was from iron supplementation or occult bleed from NSAID abuse. FOBT came back positive. Patient was started on Protonix and 1 PRBC transfusion was given. Iron studies are within normal limits. Consulted research hydrologist, Dr. Meyer and he performed EGD that showed gastritis with hemorrhage, erythematous duodenopathy. Patient was educated on stoppage of NSAID and iron supplements. Patient is discharged to the hospital with the following medications and recommendations -Follow-up with PCP within 1 week of discharge. If you do not have appointment, please follow-up with the [facility] with Dr. Goldberg. Call [phone] to make an appointment. -Recommedned to take Pantoprazole 40mg once daily on empty stomach for 3months -Stop taking Aspirin and ibuprofen everyday for Knee joint pain. Take tylenol as needed for pain -Stop lisinopril as your blood pressure is within normal limits without the medication and follow up with PCP for resuming the medication -Stop taking Iron supplements -Continue rest of the home medications -Return to ED if symptoms persist or return #GI bleed #Acute blood loss anemia #Symptomatic anemia #Hypertension #Hyperlipidemia Patient plan of care was discussed with the attending physician, Dr. Ivy Goldberg, PGY2 Time Spent with Patient Time attestation: Total time spent providing and/or coordinating discharge services: Time spent: Greater than 30 minutes Exam Vital Signs Temp Pulse Resp BP Pulse Ox O2 Del Method O2 Flow Rate 97.0 F 83 18 126/77 97 Room Air 3 03/08/25 12:00 03/08/25 12:00 03/08/25 12:00 03/08/25 12:00 03/08/25 12:00 03/08/25 12:00 03/07/25 16:25 Narrative Exam General: Awake. HEENT: Normocephalic, atraumatic, mucous membranes moist. Heart: Regular rate and rhythm, no murmurs. Lungs: Clear to auscultation with no wheezing or crackles. Abdomen: Soft, nondistended, nontender, positive bowel sounds. ?No guarding or rebound tenderness. Neurologic: Alert and oriented x3, no gross neurological deficit, and patient able to move all 4 extremities. Extremities: No edema. Skin: No rash or ecchymoses. Discharge Plan Plan Patient Disposition: HOME (Self Care) Patient condition on transfer: Stable Care Plan Goals: -Follow-up with PCP within 1 week of discharge. If you do not have appointment, please follow-up with the [facility] with Dr. Goldberg. Call to make an appointment. -Recommedned to take Pantoprazole 40mg once daily on empty stomach for 3months -Stop taking Aspirin and ibuprofen everyday for Knee joint pain. Take tylenol as needed for pain -Stop lisinopril as your blood pressure is within normal limits without the medication and follow up with PCP for resuming the medication -Stop taking Iron supplements -Continue rest of the home medications -Return to ED if symptoms persist or return Prescriptions/Referrals Prescriptions/Med Rec: New pantoprazole 40 mg tablet,delayed release (DR/EC) 40 mg PO QDAY Qty: 30 2RF Continued montelukast 10 mg Tablet 10 mg PO DAILY atorvastatin 20 mg tablet 20 mg PO DAILY Patient Comments: TAKE ONE TABLET BY MOUTH EVERY DAY FOR CHOLESTEROL ipratropium bromide 42 mcg (0.06 %) spray,non-aerosol 2 spray INTRANASAL TID Patient Comments: INSTILL TWO SPARY IN EACH NOSTRIL THREE TIMES DAILY albuterol sulfate [Ventolin HFA] 90 mcg/actuation HFA aerosol inhaler 2 inh inhalation PRN PRN (Reason: shortness of breath or wheezing) cetirizine 10 mg tablet 10 mg PO DAILY Patient Comments: TAKE ONE TABLET BY MOUTH EVERY DAY NEEDED FOR ALLERGY olopatadine 0.2 % drops 1 drp OPHTHALMIC (EYE) DAILY Rx Instructions: to affected eye azelastine 137 mcg (0.1 %) spray,non-aerosol 2 spray INTRANASAL Q12H Patient Comments: INSTILL 2 SPRAYS IN EACH NOSTRIL TWICE DAILY FOR ALLERGY diphenhydramine HCl [Allergy (diphenhydramine)] 25 mg capsule 25 mg PO DAILY PRN (Reason: allergy symptoms) Held lisinopril 5 mg tablet 5 mg PO QDAY Hold Instructions: Resume on 03/22/25. Till u see your PCP Patient Comments: TAKE ONE TABLET BY MOUTH EVERY DAY FOR BLOOD PRESSURE Discontinued ibuprofen 200 mg capsule 200 mg PO DAILY PRN (Reason: pain) ferrous sulfate 325 mg (65 mg iron) tablet,delayed release (DR/EC) 325 mg PO DAILY Patient Comments: TAKE ONE TABLET BY MOUTH EVERY DAY VITAMIN WITH ORANGE JUICE Referrals: Jarrod Mixon PA-C [Primary Care Provider] Patient/Caregiver Discharge Instructions Education Materials: Taking NSAIDs Safely, Medicines for Acid Reflux, Managing Chronic Pain Print Language: Hungarian Stand Alone Forms: Amanda Award Info., Patient Portal Info Letter Discharge Order Discharge Orders: Discharge (Routine); Ordered 03/08/25 Ordered By: Jan Goldberg Quality Discharge Quality Measures VTE prophylaxis
--- NOTE | 2025-03-08 20:30 | PD.IMPROG ---
Documentation for date of: 03/08/25 Subjective Subjective Interval history: Late entry for the note Hemoglobin hematocrit 9.6 and 30.8 stable Okay to discharge patient home to be followed by the PCP avoid NSAIDs Exam Vital Signs Temp Pulse Resp BP Pulse Ox O2 Del Method O2 Flow Rate 97.0 F 83 18 126/77 97 Room Air 3 03/08/25 12:00 03/08/25 12:00 03/08/25 12:00 03/08/25 12:00 03/08/25 12:00 03/08/25 12:00 03/07/25 16:25 Objective Labs 03/08/25 04:25 03/08/25 04:25 Labs: Laboratory Results - last 24 hr 03/06/25 03/08/25 19:10 04:25 WBC 4.9 RBC 3.78 L Hgb 9.6 L Hct 30.8 L MCV 82 MCH 25.4 MCHC 31.2 RDW Std Deviation 62.6 H Plt Count 298 D Neut % (Auto) 63 Lymph % (Auto) 23 [place] % (Auto) 9 Eos % (Auto) 5 Baso % (Auto) 0 Neut # (Auto) 3.1 Lymph # (Auto) 1.1 [place] # (Auto) 0.4 Eos # (Auto) 0.2 Baso # (Auto) 0.0 Immature Gran # (Auto) 0.02 H Absolute Nucleated RBC 0.00 Immature Gran % 0 Nucleated RBC % 0 Sodium 144 Potassium 3.8 Chloride 108 H Carbon Dioxide 27.6 Anion Gap 8 BUN 13 Creatinine 0.6 Estim Creat Clear Calc 78.4 eGFR > 60 BUN/Creatinine Ratio 22 H Glucose 84 Calculated Osmolality 285 Calcium 9.1 Corrected Calcium 9.1 Phosphorus 3.6 Magnesium 2.1 Total Bilirubin 0.6 AST 19 ALT 12 Alkaline Phosphatase 62 Total Protein 5.8 Albumin 4.3 D Globulin 1.5 L Albumin/Globulin Ratio 2.9 H Crossmatch See Detail Impressions Impression: Hemorrhagic gastritis Duodenitis Plan as in HPI No need for GI follow-up Assessment & Plan A&P Narrative # Melena # Hemoccult positive stool Plan Consent obtained for fiberoptic esophagogastroduodenoscopy with possible biopsies possible therapeutic intervention under intravenous moderate sedation Further evaluation of the above Continue IV Protonix Thank you for the opportunity to participate in the care of this patient Time Spent With Patient Time: Total time spent is greater than 50% in coordination of care (as documented) at patient's floor/unit and/or counseling patient:
== END 2025-03-08 11:53 | disposition home or self-care (01) | DRG 241 ==
LOC: SERX 20:13 → SERHOLD 20:43 → S2NX 22:32 → S3SX 03-08 04:37
PROVIDERS: Physician Assistant; Specialist; Admitting Provider Student in an Organized Health Care Education/Training Program; Emergency Provider Emergency Medicine; PCP Physician Assistant; Visit Provider Student in an Organized Health Care Education/Training Program
PROC: 0DJ08ZZ Inspection of Upper Intestinal Tract, Via Natural or Artificial Opening Endoscopic (ICD-10-PCS; CPT 43239; principal; 2025-03-07 16:00)
DX: K29.71 Gastritis, unspecified, with bleeding (principal); D62 Acute posthemorrhagic anemia; I10 Essential (primary) hypertension; K31.89 Other diseases of stomach and duodenum; K44.9 Diaphragmatic hernia without obstruction or gangrene; E78.5 Hyperlipidemia, unspecified; J44.9 Chronic obstructive pulmonary disease, unspecified; K29.80 Duodenitis without bleeding; Z79.82 Long term (current) use of aspirin; Z79.899 Other long term (current) drug therapy; Z88.8 Allergy status to other drugs, medicaments and biological substances
CPT/HCPCS: 36415; 80053; 80061; 81001; 82728; 83036; 83540; 83550; 83735; 84100; 84443; 84484; 85014; 85018; 85025; 85046; 85610; 85730; 86850; 86900; 86901; 86923; 93005; 94640; 96374; 96376; 99283; A4649; A9270; J1200; J2250; J2470; J3010; J7999; P9016

== ENCOUNTER 2025-03-26 00:51 | Emergency (ER) | payer MEDICAID, SELFPAY ==
--- NOTE | 2025-03-26 00:53 | EKG_ITS ---
[facility] Test Date: 2025-03-26 Pat Name: NAVDEEP CHAPARRO Department: Room: - Gender: Female Program Lead: : 1960 Requested By: ED Temporary Provider Order Number: [id number] Reading MD: ED Temporary Provider Measurements Intervals [place] Rate: 75 P: 64 MN: 176 QRS: 40 QRSD: 82 T: 68 QT: 404 QTc: 453 Interpretive Statements SINUS RHYTHM Compared to ECG 03/06/2025 21:22:02 No significant changes /store/S0/[id number].pdf
[2025-03-26 00:54] VITALS: PULSE 78; BMI 24.6
[2025-03-26 01:03] VITALS: BP 86/59; PULSE 75; RESP 20; O2SAT 99
[2025-03-26 01:07] VITALS: BP 86/59; BP 88/52; BP 89/54; PULSE 72; PULSE 80; PULSE 81; TEMP 37.1
--- NOTE | 2025-03-26 01:07 | XR_ITS ---
Examination: CT chest, without intravenous contrast. CT abdomen, without intravenous contrast. CT pelvis, without intravenous contrast. 2-D sagittal and coronal reconstructions. 3-D reconstructions. Date and time of exam: March 26, 2025, 0207 hours INDICATIONS: Patient fell today with injury to the chest and abdomen, chest pain abdomen pain CTDI vol (mgy) 12.16 DLP (MGycm) 271 Technique: Multiple CT images, 3.0 mm slice thickness, obtained chest, abdomen, pelvis, with the high-resolution 64 slice scanner.. Sagittal and coronal 2-D reconstructions are obtained. 3-D reconstructions Low dose protocols were performed. One or more of the following dose reduction techniques were used; automated exposure control, adjustment of the mA and/or KV according to patient size, use of iterative reconstruction technique. Findings: Thoracic aorta pulmonary arteries intact No hemopericardium Moderate coronary artery calcification No pneumothorax pulmonary contusion or hemothorax Sternal segments thoracic lumbar vertebral bodies intact with prominent osteopenia Ribs appear intact Bilateral subcentimeter pulmonary nodules No liver or splenic or renal laceration No gallstones Abdominal aorta intact no free blood in the abdomen Urinary bladder intact Anteverted enlarged uterus with uterine fundal masses Bones of the pelvis hips intact IMPRESSION: Thoracic aorta pulmonary arteries intact Recommend 6-month follow-up CT chest to document stability of subcentimeter pulmonary nodules No hemopericardium, pneumothorax pulmonary contusion or hemothorax No abdominal parenchymal laceration Abdominal aorta intact No free body in the abdomen or pelvis
--- NOTE | 2025-03-26 01:07 | XR_ITS ---
Examination: CT cervical spine without contrast 2-D sagittal reconstructions 2-D coronal reconstructions 3-D reconstructions. Exam date and time: March 26, 2025, 0207 hours INDICATIONS: Patient fell today with injury to the neck, neck pain CTDI:vol (mGy) 12.16 DLP: (mGycm) 271 Technique: Multiple 2 mm axial sections of the cervical spine have been obtained. The coronal and sagittal reconstructions have been obtained. 3-D reconstructions have been obtained. Low dose protocols were performed. One or more of the following dose reduction techniques were used; automated exposure control, adjustment of the mA and/or KV according to patient size, use of iterative reconstruction technique. Findings: Axial sections demonstrate intact base of the skull. C1 exhibit satisfactory relationship to the odontoid. No acute cervical vertebral body fracture seen. Alignment posterior spinous processes satisfactory. Impression: No acute cervical fracture.
--- NOTE | 2025-03-26 01:07 | XR_ITS ---
Examination: CT brain head without contrast. 2-D sagittal coronal reconstructions Date and time of exam: March 26, 2025, 1404 hours INDICATIONS: Ground-level fall today with injury of the head, head pain CTDI: vol (mGy): 51.50 DLP: (mGycm): 982 Technique: Multiple CT axial sections of the brain have been obtained, 5 mm slice thickness. Contrast has not been administered. 2-D sagittal, coronal reconstructions have been obtained Low dose protocols were performed. One or more of the following dose reduction techniques were used; automated exposure control, adjustment of the mA and/or KV according to patient size, use of iterative reconstruction technique. Findings: No significant ventricular enlargement. Intra-axial or extra-axial hemorrhage density is not seen. No mass effect or midline shift Basal cisterns are not remarkable. Fourth ventricle is midline. Cranial vault intact. Impression: Negative for acute hemorrhage, mass effect or midline shift
--- NOTE | 2025-03-26 01:07 | XR_ITS ---
EXAMINATION: AP chest single view TECHNIQUE: AP portable upright chest single view Date and time: March 26, 2025, 0119 hours, comparison December 16, 2024 INDICATION: Shortness of breath today. FINDINGS: Large retrocardiac gastric hernia Normal heart size Mild vascular congestion No lobar pneumonia or pulmonary edema IMPRESSION: No lobar pneumonia or pulmonary edema
--- NOTE | 2025-03-26 01:07 | PD.EDSYNC ---
ED Syncope RME/HPI General Chief Complaint: Syncope / Near Syncope Stated Complaint: SYNCOPE Time Seen by Provider: 03/26/25 01:06 Arrival date/time: 03/26/25 00:51 RME / HPI RME / HPI narrative: See [facility] for Dr. Barakat's HPI Documentation. Related Data Home Medications ?Medication ?Instructions ?Recorded ?Confirmed montelukast 10 mg tablet 10 mg PO DAILY 10/10/18 03/06/25 lisinopril 5 mg tablet 5 mg PO QDAY 04/11/21 03/06/25 Held on 03/08/25. Instructions: Resume on 03/22/25. Till u see your PCP atorvastatin 20 mg tablet 20 mg PO DAILY 12/17/24 03/06/25 ipratropium bromide 42 mcg (0.06 2 spray intranasal TID 12/17/24 03/06/25 %) nasal spray albuterol sulfate 90 mcg/actuation 2 inh inhalation PRN PRN shortness 03/06/25 03/06/25 aerosol inhaler (Ventolin HFA) of breath or wheezing azelastine 137 mcg (0.1 %) nasal 2 spray intranasal Q12H 03/07/25 03/07/25 spray cetirizine 10 mg tablet 10 mg PO DAILY 03/07/25 03/07/25 diphenhydramine HCl 25 mg capsule 25 mg PO DAILY PRN allergy symptoms 03/07/25 03/07/25 (Allergy (diphenhydramine)) olopatadine 0.2 % eye drops 1 drp ophthalmic (eye) DAILY 03/07/25 03/07/25 Previous Rx's ?Medication ?Instructions ?Recorded pantoprazole 40 mg tablet,delayed 40 mg PO QDAY #30 tabs 03/08/25 release acetaminophen 300 mg-codeine 30 mg 2 tab PO Q8H PRN pain #20 tabs 03/26/25 tablet Allergies Allergy/AdvReac Type Severity Reaction Status Date / Time No Known Allergies Allergy Verified 03/26/25 00:54 Review of Systems Review of Systems Systems Reviewed: All systems reviewed, normal except as documented Past Medical History Past Medical History CARDIAC: Positive Hypercholesterolemia and Hypertension RESPIRATORY: Positive Chronic Obstructive Pulmonary Disease (COPD), Asthma and Pneumonia GASTROINTESTINAL: Positive Gastrointestinal Bleed, Colitis and Diverticulitis REPRODUCTIVE: Positive Previous Pregnancies (4, miscarriage x 1, 3 live children) MUSCULOSKELETAL: Positive Musculoskeletal Disorders, Arthritis (legs) and Fractures (R knee ) ENT: Positive Deafness (CIRCLE dt loud music) HEMATOLOGIC: Positive Anemia OTHER HISTORY: Positive Chicken Pox and Measles Family History FAMILY HISTORY: Positive Family Psychiatric Problems (aunt dementia) Surgical History SURGICAL: Positive Lumpectomy (L breast 1981) ED Exam Narrative Physical exam: See MDM for Dr. Barakat's Physical Exam Documentation. Course Quality Measures none Orders Category Date Time Status CT Screening NOW Care 03/26/25 02:42 Completed EKG (ED ONLY) *Do not use* NOW Care 03/26/25 00:53 Completed Insert IV NOW Care 03/26/25 00:53 Completed Orthostatic Vitals NOW Care 03/26/25 01:[address] angio chest Stat Exams 03/26/25 02:[address] cervical spine wo con Stat Exams 03/26/25 01:[address] chest abdomen pelvis wo Stat Exams 03/26/25 01:[address] head/brain wo con Stat Exams 03/26/25 01:07 Completed EKG (ED Only) Stat Exams 03/26/25 00:53 Draft XR chest 1V portable Stat Exams 03/26/25 01:07 Completed Alcohol, Blood Medical Stat Lab 03/26/25 01:10 Completed BNP [B-Type Natriuretic Peptide] Stat Lab 03/26/25 01:10 Completed Beta Hydroxybutyrate Stat Lab 03/26/25 01:10 Completed Bilirubin,Direct Stat Lab 03/26/25 01:10 Completed Blood Culture (Lab) Stat Lab 03/26/25 01:16 Received CBC Stat Lab 03/26/25 01:10 Completed CK [Creatine Kinase] Stat Lab 03/26/25 01:10 Completed CMP [Comprehensive Metabolic Panel] Stat Lab 03/26/25 01:10 Completed CRP [C-Reactive Protein] Stat Lab 03/26/25 01:10 Completed D-Dimer Stat Lab 03/26/25 01:10 Completed Drug Screen,Urine Stat Lab 03/26/25 04:13 Completed ESR [Sed Rate (ESR)] Stat Lab 03/26/25 01:10 Completed Hemoglobin A1C [Glycohemoglobin w (eAG)] Stat Lab 03/26/25 01:10 Completed Lactate (Lactic Acid) Stat Lab 03/26/25 01:10 Completed Lipase Stat Lab 03/26/25 01:10 Completed Magnesium Stat Lab 03/26/25 01:10 Completed Procalcitonin Stat Lab 03/26/25 01:10 Completed TSH [Thyroid Stimulating Hormone] Stat Lab 03/26/25 01:10 Completed Troponin I Stat Lab 03/26/25 01:10 Completed UA, C/S IF [Urinalysis, C/S if Indicated] Stat Lab 03/26/25 04:13 Completed VBG [Venous Blood Gas] Stat Lab 03/26/25 01:10 Completed Morphine* Inj Med 03/26/25 03:32 Discontinued 4 mg IV X1 ONE POTASSIUM CHL 10% Liq 15 ML Med 03/26/25 02:38 Discontinued 40 meq PO X1 ONE Ringers Lactated 1000 ml [Lactated Ringers] 1,000 ml Med 03/26/25 02:42 Discontinued IV 1,000 mls/hr Sodium Chloride 0.9% 1000 ml [Ns] 1,000 ml Med 03/26/25 01:07 Discontinued IV 999 mls/hr Vital Signs Vital signs: Vital Signs Pulse Rate 75 03/26/25 01:03 Respiratory Rate 20 03/26/25 01:03 Blood Pressure 86/59 L 03/26/25 01:03 Pulse Oximetry (%) 99 03/26/25 01:03 Oxygen Delivery Method Room Air 03/26/25 01:03 Syncope MDM Narrative MDM Narrative:: This section includes all my notes and documentations, including HPI, PE, and ED course. Lit Barakat MD HPI: 64 y/o female with Hx of Hypercholesterolemia, HTN, and COPD presents due to syncopal episode while working at [employer]. She felt lightheaded and passed out. She landed on the back of her head. Currently, she reports severe tailbone pain. No headache or dizziness currently. No neck pain or back pain. No chest pain or abdominal pain. No pain in the arms or legs. No other complaints. ROS: All negative except as documented in HPI. Physical Exam: General:? Alert and oriented.? No acute distress.? Eyes:? Conjunctivae and lids clear.? EOMI.? PERRL. ENT:? No signs of head trauma. Neck:? Supple.? No tenderness. Heart:? RRR. Lungs:? No respiratory distress.? Good air movement.? No rhonchi, wheezing, rales.? Chest:? No tenderness. Abdomen:? Soft and nontender.? Normal bowel sounds.? No distension.? No rebound or guarding.? Back:? No tenderness.? Skin:? Warm and dry.? Neuro:? Alert and oriented X 3.? Cranial Nerves II-XII grossly intact.? No peripheral motor deficits. Musculoskeletal:? All major joints and bones are not tender with no limited ROM. I reviewed EMS notes. I reviewed all diagnostic test results: My interpretation of the EKG: NSR (75 bpm) with no ST-T changes. My interpretation of the chest x-ray is: NAD. My review of the Head/Brain CT report is NAD. My review of the Chest CTA report is no PE. My review of the C-Spine CT report is no fracture. My review of the Chest/Abdomen/Pelvis CT report is NAD. Blood tests and urine tests remarkable for D-dimer 3040, K 3.3. At this point, diagnoses include: Syncope of unclear etiology Fall with no serious injury Coccyx contusion Treatment here included: IVF Zofran 4 mg IV Morphine 4 mg IV Oral KCl 40 mEq She felt much better. Recommended more outpatient workup. Based on my best medical judgment, made decision no further evaluation or treatment indicated at this time.? Patient understands and agrees to the discharge instructions customized and printed, see below. Discharge instructions from Dr. Barakat: 1. After extensive evaluation, there is no life-threatening condition. Such as stroke or brain tumor or heart attack or pulmonary embolism (blood clots in your lungs) or pneumothorax (collapsed lung). 2. You sustained tailbone contusion. Expect to have pain for several weeks. 3. Avoid sitting on your tailbone for several weeks. Apply ice for 20 minutes every 2-3 hours today and tomorrow. Ibuprofen 400 mg every 6-8 hours today and tomorrow to decrease inflammation then as needed. Tylenol with codeine for severe pain. 4. See a private doctor on 03/27/2025 for recheck and further care. Ask to review all test results and official radiology reports, to make sure you receive all necessary follow-ups and monitoring. To make sure there is no serious underlying heart condition, ask to help you get more tests for your heart that cannot be done here in the ER. Such as Holter Monitor (cardiac monitoring at home from a day to even a month), heart stress test (on treadmill or with medication), echocardiogram (imaging of your heart structures), heart catherization (checking for blockages in your heart arteries), and a referral to see a Lead Data Architect. Ask for help with MRI imaging of the brain and referral to see neurologist. Ask for help until you are completely better. 5. Seek immediate medical care with worsening or with any concerns. Lit Barakat MD Patient data External records reviewed:: [facility] previous records (Reviewed prior ED records from 03/06/25. Patient was seen for Acute upper gastrointestinal bleeding.) and EMS form Clinical information provided by:: patient and EMS Social determinants that could affect healthcare access:: none Patient has the following chronic illnesses:: Hypercholesterolemia, Hypertension, COPD, Asthma, Gastrointestinal Bleed, Colitis, Diverticulitis, Arthritis How is presenting disease/condition affected by chronic disease/condition?: exacerbated by Evaluation data The following diagnostics were reviewed and interpreted by me:: lab results, radiology exam(s) and EKG tracing(s) (My interpretation of the EKG: NSR (75 bpm) with no ST-T changes. Lit Barakat MD) Lab and/or radiology exams considered but not ordered:: None Interpretation Summary: I reviewed all diagnostic test results: My interpretation of the EKG: NSR (75 bpm) with no ST-T changes. My interpretation of the chest x-ray is: NAD. My review of the Head/Brain CT report is NAD. My review of the Chest CTA report is no PE. My review of the C-Spine CT report is no fracture. My review of the Chest/Abdomen/Pelvis CT report is NAD. Blood tests and urine tests remarkable for D-dimer 3040, K 3.3. Medications / Prescriptions Medications or Prescriptions considered but not ordered:: None Medication administrations:: Medication Administration History Discontinued Medications Sodium Chloride (Ns) 1,000 mls @ 999 mls/hr IV .Q1H1M ONE Stop: 03/26/25 02:07 Last Infusion: 03/26/25 02:16 Dose: Infused Documented By: Admin: 03/26/25 01:14 Dose: 999 mls/hr Documented By: DOMENICA Lactated Ringer's (Lactated Ringers) 1,000 mls @ 1,000 mls/hr IV .Q1H ONE Stop: 03/26/25 03:41 Last Infusion: 03/26/25 03:59 Dose: Infused Documented By: Admin: 03/26/25 02:56 Dose: 1,000 mls/hr Documented By: DOMENICA Morphine Sulfate (Morphine Sulf Inj 4 Mg/Ml Vial) 4 mg IV X1 ONE Stop: 03/26/25 03:33 Last Admin: 03/26/25 04:07 Dose: 4 mg Documented By: BRIDGETT Potassium Chloride (Potassium Chloride 10% 20 Meq/15 Ml Udc) 40 meq PO X1 ONE Stop: 03/26/25 02:39 Last Admin: 03/26/25 02:50 Dose: 40 meq Documented By: DOMENICA Treatment here included: IVF Zofran 4 mg IV Morphine 4 mg IV Oral KCl 40 mEq Consultations Consultation(s) initiated? (list below): No Diagnosis Syncope Differential Diagnosis: syncope due to orthostatic hypotension, vasovagal syncope, complete atrioventricular block, subarachnoid hemorrhage, pulmonary embolism and dehydration Most likely diagnosis given after review of the tests above:: Syncope of unclear urology Fall with no serious injury Coccyx contusion Admission Indicated Admission indicated?: not indicated Explain why admission is indicated or not indicated:: With significant improvement and no condition needing emergent intervention, there was no indication for admission. Admission Request Was there a request for admission?: No Disposition Plan Disposition Plan: Discharge (At 0600 on 03/26/2025, the care of the patient was transferred to Dr. Chaney. ) Discharge Attestation Discharge Attestation: The patient and all family members were given an opportunity to ask questions and understood the discharge instructions. Discharge instructions specifically effects, indications for sooner follow up or return to the emergency department, and the expected course of current diagnosis. Patient condition: Stable Discharge Plan Plan Patient Disposition: HOME (Self Care) Prescriptions/Referrals Prescriptions/Med Rec: New acetaminophen-codeine 300-30 mg tablet 2 tab PO Q8H MDD 6 PRN (Reason: pain) Qty: 20 0RF No Action montelukast 10 mg Tablet 10 mg PO DAILY lisinopril 5 mg tablet 5 mg PO QDAY Patient Comments: TAKE ONE TABLET BY MOUTH EVERY DAY FOR BLOOD PRESSURE atorvastatin 20 mg tablet 20 mg PO DAILY Patient Comments: TAKE ONE TABLET BY MOUTH EVERY DAY FOR CHOLESTEROL ipratropium bromide 42 mcg (0.06 %) spray,non-aerosol 2 spray INTRANASAL TID Patient Comments: INSTILL TWO SPARY IN EACH NOSTRIL THREE TIMES DAILY albuterol sulfate [Ventolin HFA] 90 mcg/actuation HFA aerosol inhaler 2 inh inhalation PRN PRN (Reason: shortness of breath or wheezing) cetirizine 10 mg tablet 10 mg PO DAILY Patient Comments: TAKE ONE TABLET BY MOUTH EVERY DAY NEEDED FOR ALLERGY olopatadine 0.2 % drops 1 drp OPHTHALMIC (EYE) DAILY Rx Instructions: to affected eye azelastine 137 mcg (0.1 %) spray,non-aerosol 2 spray INTRANASAL Q12H Patient Comments: INSTILL 2 SPRAYS IN EACH NOSTRIL TWICE DAILY FOR ALLERGY diphenhydramine HCl [Allergy (diphenhydramine)] 25 mg capsule 25 mg PO DAILY PRN (Reason: allergy symptoms) pantoprazole 40 mg tablet,delayed release (DR/EC) 40 mg PO QDAY Qty: 30 2RF Referrals: Jarrod Mixon PA-C [Primary Care Provider] - In 1 week Problem List Clinical Impression: Syncope, Coccyx contusion, Fall Patient/Caregiver Discharge Instructions Discharge Activity: activity as tolerated Education Materials: ED Coccyx or Sacrum Contusion, ED Fainting, Uncertain Cause Additional Instructions: Discharge instructions from Dr. Barakat: 1. After extensive evaluation, there is no life-threatening condition. Such as stroke or brain tumor or heart attack or pulmonary embolism (blood clots in your lungs) or pneumothorax (collapsed lung). 2. You sustained tailbone contusion. Expect to have pain for several weeks. 3. Avoid sitting on your tailbone for several weeks. Apply ice for 20 minutes every 2-3 hours today and tomorrow. Ibuprofen 400 mg every 6-8 hours today and tomorrow to decrease inflammation then as needed. Tylenol with codeine for severe pain. 4. See a private doctor on 03/27/2025 for recheck and further care. Ask to review all test results and official radiology reports, to make sure you receive all necessary follow-ups and monitoring. To make sure there is no serious underlying heart condition, ask to help you get more tests for your heart that cannot be done here in the ER. Such as Holter Monitor (cardiac monitoring at home from a day to even a month), heart stress test (on treadmill or with medication), echocardiogram (imaging of your heart structures), heart catherization (checking for blockages in your heart arteries), and a referral to see a Lead Data Architect. Ask for help with MRI imaging of the brain and referral to see neurologist. Ask for help until you are completely better. 5. Seek immediate medical care with worsening or with any concerns. Print Language: E[place] Stand Alone Forms: Amanda Award Info., Patient Portal Info Letter
[2025-03-26] MEDS: SODIUM CHLORIDE 0.9% 1000 ML 1,000 ML 999 ML IV (01:14)
[2025-03-26 01:33] LABS: Lactate (Lactic Acid) 1.8 mMol/L (0.4-2.0)
[2025-03-26 01:34] LABS: Base Excess, Venous -2 (-3-3); O2 Saturation, Venous 66 % (96-97); PCO2, Venous 48 mmHg (36-56); PO2, Venous 38 mmHg (15-58); pH, Venous 7.32 (7.33-7.66)
[2025-03-26 01:37] LABS: Beta Hydroxybutyrate 0.1 mmol/L (<0.6)
[2025-03-26 01:42] LABS: Basophils # (Auto) 0.0 Thou/mm3 (0.0-0.2); Basophils % (Auto) 1 % (0-2.5); Eosinophils # (Auto) 0.1 Thou/mm3 (0.0-0.5); Eosinophils % (Auto) 1 % (0-10); Hematocrit 32.1 % (36.0-46.0); Hemoglobin 9.5 g/dL (12.0-16.0); Immature Granulocytes Auto 0.04 Thou/mm3 (0.00-0.00); Lymphocytes # (Auto) 2.1 Thou/mm3 (1.0-4.8); Lymphocytes % (Auto) 28 % (10-50); Mean Corpuscular HGB Conc 29.6 g/dl (31.0-37.0); Mean Corpuscular Hemoglobin 23.8 pg (25.0-35.0); Mean Corpuscular Volume 80 fL (80-100); Monocytes # (Auto) 0.5 Thou/mm3 (0.0-0.8); Monocytes % (Auto) 7 % (0-12); Neutrophils # (Auto) 4.7 Thou/mm3 (1.8-7.7); Neutrophils % (Auto) 63 % (37-80); Nucleated Red Blood Cell # 0.00 Thou/mm3 (0.00-0.00); Nucleated Red Blood Cell % 0 /100 WBC (0); Platelet Count 444 Thou/mm3 (140-440); RDW Standard Deviation 56.0 fL (36.4-46.3); Red Blood Count 4.00 Miln/mm3 (4.00-5.20); White Blood Count 7.6 Thou/mm3 (3.6-11.0)
[2025-03-26 01:50] LABS: Sed Rate (ESR) 12 mm/hr (0-30)
[2025-03-26 01:54] LABS: Glucose Estimated Average 108 mg/dL (80-131); Hemoglobin A1C 5.4 % Hgb (4.8-6.0)
[2025-03-26 01:56] LABS: D-Dimer 3040 ng/mL (<600)
[2025-03-26 02:01] LABS: Alanine Aminotransferase 13 U/L (10-49); Albumin, Serum 4.6 gm/dL (3.4-4.8); Albumin/Globulin Ratio 2.2 (1.2-2.2); Alcohol, Blood Medical < 3.0 mg/dL (0-10.0); Alkaline Phosphatase 79 U/L (46-116); Anion Gap 10 (7-16); Aspartate Amino Transferase 21 U/L (0-34); BUN/Creatinine Ratio 15 Ratio (12-20); Bilirubin,Direct < 0.1 mg/dL (0.0-0.3); Bilirubin,Total 0.3 mg/dL (0.3-1.2); Blood Urea Nitrogen 15 mg/dL (9-23); C-Reactive Protein < 0.5 mg/dL (0.0-0.9); Calcium 9.0 mg/dL (8.3-10.6); Calcium (Corrected) 9.0 mg/dL (8.5-10.1); Carbon Dioxide 24.5 mMol/L (20.0-31.0); Chloride 109 mMol/L (98-107); Creatine Kinase 82 U/L (34-171); Creatinine (Component) 1.0 mg/dL (0.6-1.3); Estimated Creatinine Clearance 48.9 mL/min (>60); Globulin 2.1 gm/dL (2.3-3.5); Glucose 145 mg/dL (74-106); Lipase 34 U/L (12-53); Magnesium 2.0 mg/dL (1.6-2.6); Osmolality,Calculated 288 (275-295); Potassium 3.3 mMol/L (3.4-5.1); Procalcitonin 0.05 ng/ml (0.0-0.49); Sodium 143 mMol/L (136-145); Thyroid Stimulating Hormone 2.15 uIU/mL (0.55-4.78); Total Protein 6.7 gm/dL (5.7-8.2); Troponin I < 0.002 ng/mL (0.0-0.045); eGFR > 60 See Note
[2025-03-26 02:15] LABS: B-Type Natriuretic Peptide 88 pg/mL (0-100)
--- NOTE | 2025-03-26 02:32 | PRELIM_ITS ---
CT scan of the cervical spine without intravenous contrast (axial sections with sagittal and coronal reformats) March 26, 2025 0206 hours Clinical History: Trauma Comparison: None available at the time of this report. Findings: There is no fracture or subluxation. Degenerative changes of the imaged portions of the spine. Chronic multilevel disc disease.The prevertebral soft tissues are unremarkable. Vascular calcifications. Impression: No evidence of fracture or subluxation. Report Electronically Signed By: Skyler Velez 03/26/2025 2:31:12 AM [EST]
--- NOTE | 2025-03-26 02:36 | PRELIM_ITS ---
CT scan of the head without intravenous contrast (axial sections with sagittal and coronal reformats) March 26, 2025 at 0204 hours Clinical History: Syncope and head injury. Comparison: None available at the time of this report. Findings: There is no evidence of intracranial hemorrhage, mass effect or midline shift. There are periventricular white matter hypodensities, compatible with chronic small vessel ischemia. There is mild volume loss. The calvarium is intact. The mastoid air cells and the visualized paranasal sinuses are clear. Impression: No evidence of intracranial hemorrhage, midline shift or calvarial fracture. Periventricular chronic small vessel ischemia and volume loss. Report Electronically Signed By: Skyler Velez 03/26/2025 2:35:44 AM [EST]
--- NOTE | 2025-03-26 02:42 | XR_ITS ---
Examination: CTA chest with intravenous contrast 2-D reconstructions 3-D reconstructions, vascular Date and time of exam: March 26, 2025, 0355 hours INDICATIONS: Elevated D-dimer, chest pain, abdominal pain radiating to the back today CTDI: vol (mGy) 18.81 DLP: (mGycm) 419 Technique: Multiple axial sections of the thorax have been obtained. 3 mm slice thickness, from below the hemidiaphragms to above the apices of the lungs. Mediastinal and lung density settings have been obtained. 2-D sagittal and coronal reconstructions. 3-D angiographic renderings, 3-D volume renderings, 3D post processing, vascular maximum intensity projections obtained. Contrast administered is 100 cc Isovue-370. Low dose protocols were performed. One or more of the following dose reduction techniques were used; automated exposure control, adjustment of the mA and/or KV according to patient size, use of iterative reconstruction technique. Findings: No thoracic aortic aneurysmal dilatation Pulmonary artery segments are not enlarged No pulmonary artery emboli Prominent calcification left anterior descending and circumflex coronary arteries No paratracheal tracheobronchial or bronchopulmonary adenopathy 3 mm pulmonary nodule left upper lobe, 6 mm pulmonary nodule right lower lobe 2 mm pulmonary nodule right lower lobe 4 mm pulmonary nodule right midlung No pneumonia or pulmonary edema Retrocardiac gastric hernia No visualized liver or splenic lesion No gallstones No hydronephrosis IMPRESSION: Negative for pulmonary artery emboli No mediastinal lymphadenopathy Significant coronary artery calcification Noncalcified pulmonary nodules as above, recommend follow-up CT chest without contrast in 6 months
[2025-03-26] MEDS: POTASSIUM CHLORIDE 10% 20 MEQ/15 ML UDC 40 MEQ PO (02:50)
[2025-03-26] MEDS: RINGERS LACTATED 1000 ML 1,000 ML IV (02:56)
[2025-03-26 03:02] VITALS: BP 117/84; PULSE 99; RESP 18; O2SAT 100
--- NOTE | 2025-03-26 04:01 | PRELIM_ITS ---
CT scan of the chest, abdomen and pelvis without intravenous contrast (axial sections with sagittal and coronal reformats) March 26, 2025 0207 hours Clinical History: Fall. Comparison: None available at the time of this report. Findings: A few subcentimeter lung nodules. Mild bilateral peribronchial thickening. There is no pleural effusion or pneumothorax. The aorta is within normal limits for age on this noncontrast study. There is no mediastinal collection. There is no pericardial effusion. The liver, gallbladder, spleen, pancreas, adrenals and kidneys are unremarkable on this noncontrast study. Diverticulosis of the colon. Mild fecal loading. The urinary bladder is unremarkable. There is no free fluid or free air. No fracture is identified. Large hiatus hernia. Coronary arteries calcifications. Enlarged heterogenous uterus. Impression: No visceral or bony injury to the chest, abdomen or pelvis. Possible bronchitis. Large hiatus hernia. Coronary arteries calcifications. If acute myocardial infarction is clinically suspected consider correlation with troponin. Subcentimeter lung nodules, follow-up with CT of the chest in 3 months is recommended. Enlarged heterogenous uterus, possibly due to noncalcified fibroids. Correlation with pelvic ultrasound is recommended. Report Electronically Signed By: Skyler Velez 03/26/2025 4:00:50 AM [EST]
[2025-03-26] MEDS: MORPHINE SULF INJ 4 MG/ML VIAL IV (04:07)
[2025-03-26 04:21] LABS: Collection Type, Urine Clean Catch; Squamous Epithelial Cell,Urine 0 /hpf (0-5)
[2025-03-26 04:30] LABS: Bilirubin,Urine Negative (Negative); Blood,Urine 2+ (Negative); Clarity,Urine Clear (Clear/Hazy); Color,Urine Colorless (Lt Yel-Yel); Culture Indicated,Urine Not Indicated; Glucose, Urine Negative (Negative); Hyaline Casts,Urine < 1 /hpf (0-1); Ketones,Urine Negative (Negative); Leukocyte Esterase,Urine Negative (Negative); Nitrite,Urine Negative (Negative); PH,Urine 6.5 (5.0-7.0); Protein,Urine Negative (Neg - Trace); RBC,Urine 1 /hpf (0-3); Specific Gravity,Urine 1.010 (1.001-1.035); Urobilinogen,Urine Negative mg/dL (0.0-1.0); WBC,Urine 2 /hpf (0-5)
[2025-03-26 04:34] LABS: Amphetamine/Methamp Scrn,U Negative (Negative); Barbiturate Screen,Urine Negative (Negative); Benzodiazepines Screen,Urine Negative (Negative); Benzoylecgonine Screen, Ur Negative (Negative); Fentanyl Screen,Urine Negative (Negative); Opiate Screen,Urine Negative (Negative); THC Screen,Urine Negative (Negative)
--- NOTE | 2025-03-26 05:44 | PRELIM_ITS ---
CT angiogram of the chest with intravenous contrast (axial sections with sagittal and coronal reformats) March 26, 2025 at 0343 hours Clinical History: Syncope and high dimer. Technique:Helical axial sections with sagittal and coronal reformats of the chest were obtained with intravenous contrast. Iterative reconstruction technique was employed to reduce patient radiation exposure. 3D/MIP reconstructed images were also provided. Comparison: Compared with the prior study dated March 26, 2025. Findings: There is no filling defect within the pulmonary artery divisions to suggest pulmonary thromboembolism. The mediastinum demonstrates no evidence of mass or lymphadenopathy. The thoracic aorta is unremarkable. There is no pericardial effusion. A few subcentimeter lung nodules. Mild peribronchial thickening. Coronary arteries calcifications. No evidence of pleural effusion or pneumothorax. Degenerative changes of the imaged portions of the spine. No acute fractures. The visualized upper abdominal viscera are unremarkable. Large hiatus hernia. Impression: 1. No CT evidence of pulmonary thromboembolism. 2. Coronary arteries calcifications. If acute myocardial infarction is clinically suspected structures insider correlation with troponin. 3. Probable bronchiolitis. 4. A few subcentimeter lung nodules, follow-up in [address] of the chest is recommended. 5. Large hiatus hernia. Report Electronically Signed By: Skyler Velez 03/26/2025 5:44:08 AM [EST]
[2025-03-26 05:59] VITALS: BP 101/71; PULSE 85; RESP 23; TEMP 37.1; O2SAT 98
== END 2025-03-26 05:59 | disposition home or self-care (01) ==
PROVIDERS: Emergency Provider Emergency Medicine; PCP Physician Assistant
DX: R55 Syncope and collapse (principal); S30.0XXA Contusion of lower back and pelvis, initial encounter; R07.9 Chest pain, unspecified; R10.9 Unspecified abdominal pain; S29.9XXA Unspecified injury of thorax, initial encounter; S39.91XA Unspecified injury of abdomen, initial encounter; S19.9XXA Unspecified injury of neck, initial encounter; S09.90XA Unspecified injury of head, initial encounter; R06.02 Shortness of breath; W19.XXXA Unspecified fall, initial encounter
CPT/HCPCS: 36415; 70450; 71045; 71250; 71275; 72125; 74176; 80053; 80307; 80320; 81001; 82010; 82248; 82550; 82803; 83036; 83605; 83690; 83735; 83880; 84145; 84443; 84484; 85025; 85379; 85652; 86140; 87040; 93005; 96360; 96361; 99284; A4649; J2270; J7030; J7120; Q9967; A9270; G0480

== ENCOUNTER 2025-04-22 08:52 | Emergency (ER) | payer MEDICAID, SELFPAY ==
[2025-04-22] VITALS (12 sets, daily range): BP systolic 93–120; BP diastolic 58–85; PULSE 75–107; RESP 15–24; TEMP 36.7–37.4; O2SAT 97–100; BMI 23.8
--- NOTE | 2025-04-22 09:06 | EKG_ITS ---
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
--- NOTE | 2025-04-22 09:15 | XR_ITS ---
PA upright chest film 04/22/2025 at 9:28 a.m. Comparison study 03/26/2025 INDICATION: Chest pain FINDINGS: The heart and mediastinum appear radiographically normal and there is a very large fixed gastric hiatal hernia in the lower mediastinum behind the heart, this is unchanged from the previous x-ray. Both lungs and pleural space are clear and normal. There is mild scoliosis convexity to the right in the mid-lower dorsal region measuring about 15 degrees. This is unchanged from the previous radiographs, and there is multilevel degenerative disc disease in the spine IMPRESSION: 1. Large fixed gastric hiatal hernia unchanged. 2. Chest film otherwise entirely normal
[2025-04-22 10:15] LABS: Basophils # (Auto) 0.0 Thou/mm3 (0.0-0.2); Basophils % (Auto) 0 % (0-2.5); Eosinophils # (Auto) 0.1 Thou/mm3 (0.0-0.5); Eosinophils % (Auto) 1 % (0-10); Hematocrit 27.5 % (36.0-46.0); Immature Granulocytes Auto 0.02 Thou/mm3 (0.00-0.00); Lymphocytes # (Auto) 0.7 Thou/mm3 (1.0-4.8); Lymphocytes % (Auto) 13 % (10-50); Mean Corpuscular HGB Conc 29.1 g/dl (31.0-37.0); Mean Corpuscular Hemoglobin 22.2 pg (25.0-35.0); Mean Corpuscular Volume 76 fL (80-100); Monocytes # (Auto) 0.4 Thou/mm3 (0.0-0.8); Monocytes % (Auto) 7 % (0-12); Neutrophils # (Auto) 4.4 Thou/mm3 (1.8-7.7); Neutrophils % (Auto) 79 % (37-80); Nucleated Red Blood Cell # 0.00 Thou/mm3 (0.00-0.00); Nucleated Red Blood Cell % 0 /100 WBC (0); Platelet Count 336 Thou/mm3 (140-440); RDW Standard Deviation 51.9 fL (36.4-46.3); Red Blood Count 3.61 Miln/mm3 (4.00-5.20); White Blood Count 5.6 Thou/mm3 (3.6-11.0)
[2025-04-22 10:21] LABS: Hemoglobin 8.0 g/dL (12.0-16.0)
[2025-04-22 10:22] LABS: INR 1.0 (0.9-1.3); Partial Thromboplastin Time 22.7 Seconds (22.0-36.0); Prothrombin Time 10.7 Seconds (9.0-12.2)
[2025-04-22 10:27] LABS: Collection Type, Urine Clean Catch; Squamous Epithelial Cell,Urine 0 /hpf (0-5)
[2025-04-22 10:34] LABS: Bilirubin,Urine Negative (Negative); Blood,Urine Negative (Negative); Clarity,Urine Clear (Clear/Hazy); Color,Urine Colorless (Lt Yel-Yel); Culture Indicated,Urine Not Indicated; Glucose, Urine Negative (Negative); Ketones,Urine Negative (Negative); Leukocyte Esterase,Urine Positive (Negative); Nitrite,Urine Negative (Negative); PH,Urine 7.0 (5.0-7.0); Protein,Urine Negative (Neg - Trace); RBC,Urine < 1 /hpf (0-3); Specific Gravity,Urine 1.006 (1.001-1.035); Urobilinogen,Urine Negative mg/dL (0.0-1.0); WBC,Urine 4 /hpf (0-5)
[2025-04-22 10:35] LABS: B-Type Natriuretic Peptide 52 pg/mL (0-100)
[2025-04-22 10:37] LABS: Alanine Aminotransferase 9 U/L (10-49); Albumin, Serum 4.2 gm/dL (3.4-4.8); Albumin/Globulin Ratio 2.0 (1.2-2.2); Alkaline Phosphatase 78 U/L (46-116); Anion Gap 9 (7-16); Aspartate Amino Transferase 18 U/L (0-34); BUN/Creatinine Ratio 15 Ratio (12-20); Bilirubin,Total 0.4 mg/dL (0.3-1.2); Blood Urea Nitrogen 9 mg/dL (9-23); Calcium 8.7 mg/dL (8.3-10.6); Calcium (Corrected) 8.7 mg/dL (8.5-10.1); Carbon Dioxide 25.0 mMol/L (20.0-31.0); Chloride 110 mMol/L (98-107); Creatinine (Component) 0.6 mg/dL (0.6-1.3); Estimated Creatinine Clearance 74.9 mL/min (>60); Globulin 2.1 gm/dL (2.3-3.5); Glucose 105 mg/dL (74-106); Magnesium 2.0 mg/dL (1.6-2.6); Osmolality,Calculated 285 (275-295); Potassium 3.8 mMol/L (3.4-5.1); Sodium 144 mMol/L (136-145); Total Protein 6.3 gm/dL (5.7-8.2); Troponin I < 0.002 ng/mL (0.0-0.045); eGFR > 60 See Note
--- NOTE | 2025-04-22 13:23 | PD.EDADULT ---
ED General RME/HPI General Chief complaint: General Adult/Misc Complain Stated complaint: FAINTED, FALL, LOW BP Time Seen by Provider: 04/22/25 09:21 Arrival date/time: 04/22/25 08:52 Limitations: no limitations RME / HPI RME / HPI narrative: 64 year old female with history of hypertension, hyperlipidemia, diverticulosis, previous GI bleed presents to the ED for evaluation of global weakness today. Patient states she was standing in her home when she suddenly felt faint and lost strength in her legs causing her to fall to the floor. No head injury or LOC. Denies any chest pain, palpitations, cough, shortness of breath. No other associated symptoms reported. Related Data Home Medications ?Medication ?Instructions ?Recorded ?Confirmed montelukast 10 mg tablet 10 mg PO DAILY 10/10/18 03/06/25 lisinopril 5 mg tablet 5 mg PO QDAY 04/11/21 03/06/25 Held on 03/08/25. Instructions: Resume on 03/22/25. Till u see your PCP atorvastatin 20 mg tablet 20 mg PO DAILY 12/17/24 03/06/25 ipratropium bromide 42 mcg (0.06 2 spray intranasal TID 12/17/24 03/06/25 %) nasal spray albuterol sulfate 90 mcg/actuation 2 inh inhalation PRN PRN shortness 03/06/25 03/06/25 aerosol inhaler (Ventolin HFA) of breath or wheezing azelastine 137 mcg (0.1 %) nasal 2 spray intranasal Q12H 03/07/25 03/07/25 spray cetirizine 10 mg tablet 10 mg PO DAILY 03/07/25 03/07/25 diphenhydramine HCl 25 mg capsule 25 mg PO DAILY PRN allergy symptoms 03/07/25 03/07/25 (Allergy (diphenhydramine)) olopatadine 0.2 % eye drops 1 drp ophthalmic (eye) DAILY 03/07/25 03/07/25 Previous Rx's ?Medication ?Instructions ?Recorded pantoprazole 40 mg tablet,delayed 40 mg PO QDAY #30 tabs 03/08/25 release acetaminophen 300 mg-codeine 30 mg 2 tab PO Q8H PRN pain #20 tabs 03/26/25 tablet Allergies Allergy/AdvReac Type Severity Reaction Status Date / Time No Known Allergies Allergy Verified 04/22/25 09:04 Review of Systems Review of Systems Systems Reviewed: All systems reviewed, normal except as documented Past Medical History Past Medical History CARDIAC: Positive Hypercholesterolemia and Hypertension RESPIRATORY: Positive Asthma and Pneumonia GASTROINTESTINAL: Positive Gastrointestinal Bleed, Colitis and Diverticulitis REPRODUCTIVE: Positive Previous Pregnancies MUSCULOSKELETAL: Positive Musculoskeletal Disorders, Arthritis and Fractures ENT: Positive Deafness HEMATOLOGIC: Positive Anemia OTHER HISTORY: Positive Hospitalization, Chicken Pox and Measles Family History FAMILY HISTORY: Positive Family Psychiatric Problems Surgical History SURGICAL: Positive Lumpectomy Social History SMOKING STATUS: Never smoker ED Exam General Limitations: Present no limitations General appearance: Present alert and in no apparent distress Head Head exam: Present atraumatic, normocephalic and normal inspection Eye Eye exam: Present normal appearance, PERRL and EOMI ENT ENT exam: Present normal exam, normal oropharynx and mucous membranes moist Neck Neck exam: Present normal inspection, full ROM and trachea midline Chest Chest inspection: Present normal inspection and symmetric chest wall rise Respiratory Respiratory exam: Present normal lung sounds bilaterally Cardiovascular Cardiovascular exam: Present regular rate, normal rhythm and normal heart sounds Abdominal Exam Abdominal exam: Present soft and normal bowel sounds Extremities Exam Extremities exam: Present normal inspection and full ROM Back Exam Back exam: Present normal inspection and full ROM Neurological Exam Neurological exam: Present alert, oriented X3 and CN II-XII intact Psychiatric Psychiatric exam: Present normal affect and normal mood Skin Skin exam: Present warm, dry, intact and normal color Course Quality Measures none Orders Category Date Time Status Interventional Radiology Tech NOW Care 04/22/25 09:15 Active EKG (ED ONLY) *Do not use* NOW Care 04/22/25 09:06 Completed Transfuse,blood/blood products NOW Care 04/22/25 12:42 Active EKG (ED Only) Stat Exams 04/22/25 09:06 Draft XR chest 1V portable Stat Exams 04/22/25 09:15 Completed B-Type Natriuretic Peptide Stat Lab 04/22/25 09:45 Completed CBC Stat Lab 04/22/25 09:45 Completed Comprehensive Metabolic Panel Stat Lab 04/22/25 09:45 Completed Magnesium Stat Lab 04/22/25 09:45 Completed Partial Thromboplastin Time Stat Lab 04/22/25 09:45 Completed Prothrombin Time with INR Stat Lab 04/22/25 09:45 Completed Troponin I Stat Lab 04/22/25 09:45 Completed Type and Screen Stat Lab 04/22/25 12:57 Results Urinalysis, C/S if Indicated Stat Lab 04/22/25 10:13 Completed prbc [Red Blood Cells] Stat Lab 04/22/25 12:57 Results Vital Signs Vital signs: Vital Signs Temperature 98.3 F 04/22/25 09:17 Pulse Rate 84 04/22/25 09:17 Respiratory Rate 16 04/22/25 09:17 Blood Pressure 93/58 L 04/22/25 09:17 Pulse Oximetry (%) 97 04/22/25 09:17 Oxygen Delivery Method Room Air 04/22/25 09:17 Pulse ox is 97% on room air which is adequate. Discharge Plan Plan Patient Disposition: HOME (Self Care) Patient condition on transfer: Stable Prescriptions/Referrals Prescriptions/Med Rec: No Action montelukast 10 mg Tablet 10 mg PO DAILY lisinopril 5 mg tablet 5 mg PO QDAY Patient Comments: TAKE ONE TABLET BY MOUTH EVERY DAY FOR BLOOD PRESSURE atorvastatin 20 mg tablet 20 mg PO DAILY Patient Comments: TAKE ONE TABLET BY MOUTH EVERY DAY FOR CHOLESTEROL ipratropium bromide 42 mcg (0.06 %) spray,non-aerosol 2 spray INTRANASAL TID Patient Comments: INSTILL TWO SPARY IN EACH NOSTRIL THREE TIMES DAILY albuterol sulfate [Ventolin HFA] 90 mcg/actuation HFA aerosol inhaler 2 inh inhalation PRN PRN (Reason: shortness of breath or wheezing) cetirizine 10 mg tablet 10 mg PO DAILY Patient Comments: TAKE ONE TABLET BY MOUTH EVERY DAY NEEDED FOR ALLERGY olopatadine 0.2 % drops 1 drp OPHTHALMIC (EYE) DAILY Rx Instructions: to affected eye azelastine 137 mcg (0.1 %) spray,non-aerosol 2 spray INTRANASAL Q12H Patient Comments: INSTILL 2 SPRAYS IN EACH NOSTRIL TWICE DAILY FOR ALLERGY diphenhydramine HCl [Allergy (diphenhydramine)] 25 mg capsule 25 mg PO DAILY PRN (Reason: allergy symptoms) pantoprazole 40 mg tablet,delayed release (DR/EC) 40 mg PO QDAY Qty: 30 2RF acetaminophen-codeine 300-30 mg tablet 2 tab PO Q8H MDD 6 PRN (Reason: pain) Qty: 20 0RF Referrals: Jarrod Mixon PA-C [Primary Care Provider] - In 1 week Problem List Clinical Impression: Symptomatic anemia, Near syncope Patient/Caregiver Discharge Instructions Discharge Activity: activity as tolerated Education Materials: Dizziness Fainting Poss Causes, ED Anemia Type Not Specified Additional Instructions: Follow-up with your doctor in 2 to 3 days. If you have increasing dizziness or weakness consider returning to the ER for reevaluation Print Language: Spanish Stand Alone Forms: Amanda Award Info., Patient Portal Info Letter MDM Narrative MDM hospital course (for use when minimal MDM required): Ana Bunn am scribing for and in the presence of Dr. Chaney. 64 year old female with history of hypertension, hyperlipidemia, diverticulosis, previous GI bleed presents to the ED for evaluation of global weakness and feeling faint today. Labs and chest xray were ordered. Labs remarkable for hemoglobin of 8.0 otherwise all other results are within normal limits. Patient does not meet transfusion criteria however due to being symptomatic, I ordered 1 unit of PRBCs to be transfused. On reassessment, the patient reports feeling improved. Will DC home. Clinical Information Provided by: patient Medical Records reviewed [facility] Meds/Rx considered, not ordered None Labs/Rad/Tests considered, not ordered None Chronic Illness/Social Conditions which may negatively complicate care or outcome(s)-explain: None or not applicable EKG Interpretation EKG #1: EKG Interpretation: EKG @ 09:25 am, interpreted by me, normal sinus rhythm, rate 72, no STEMI. Labs Labs: see narrative above Lab(s) Interpretation(s): See above Imaging Imaging Interpretation(s): Ordering Physician: Edwin LANGE)Idris NP Date of Service: 04/22/25 Procedure(s): XR chest 1V portable Accession Number(s): [id number] cc: Edwin LANGE)Idris NP; Manuel Dumas MD~ PA upright chest film 04/22/2025 at 9:28 a.m. Comparison study 03/26/2025 INDICATION: Chest pain FINDINGS: The heart and mediastinum appear radiographically normal and there is a very large fixed gastric hiatal hernia in the lower mediastinum behind the heart, this is unchanged from the previous x-ray. Both lungs and pleural space are clear and normal. There is mild scoliosis convexity to the right in the mid-lower dorsal region measuring about 15 degrees. This is unchanged from the previous radiographs, and there is multilevel degenerative disc disease in the spine IMPRESSION: 1. Large fixed gastric hiatal hernia unchanged. 2. Chest film otherwise entirely normal Dictated By: Manuel Dumas MD Signed By: <Electronically signed by Manuel Dumas MD in [place]> 04/22/25 0942 Medication Administration(s) See above Diagnosis Diagnoses ruled out and/or further discussions: Symptomatic anemia Syncope
--- NOTE | 2025-04-22 20:10 | PC.NURSE ---
Had a problem with [employer] and blood administration with scanning blood did my 15 and 30 minute check and whenever patient was about to be discharged it showed it was never transfused even though i scanned patients bag and did all the verification steps. I called lani from IT and informed her what had happened she stated to try back timing it and if that doesn't work to doc vitals and see if it lets me. I had no luck and eventually was locked out by [employer] I then proceeded to call Sendy from blood bank and he stated he had exited out of all the computers and wasn't sure why it locked me out. After i called IT Lani again and she stated it would probably be a problem with [employer] and to chart the blood transfusion on paper. I then charted all blood transfusion on paper. patient got full unit of blood with no reaction all vital signs stable at discharge
== END 2025-04-23 17:28 | disposition home or self-care (01) ==
PROVIDERS: Nurse Practitioner Primary Care; Emergency Provider Family Medicine; PCP Physician Assistant
DX: D64.9 Anemia, unspecified (principal); R55 Syncope and collapse; E78.5 Hyperlipidemia, unspecified; I10 Essential (primary) hypertension; K44.9 Diaphragmatic hernia without obstruction or gangrene
CPT/HCPCS: 36415; 36430; 71045; 80053; 81001; 83735; 83880; 84484; 85025; 85610; 85730; 86850; 86900; 86901; 86923; 93005; 99284; P9016